=== PATIENT | male | born 1955 | race Caucasian/White ===

== ENCOUNTER → 2018-02-23 11:29 | Outpatient (CLI) | payer OTHER, SELFPAY ==
[2018-02-23 11:55] LABS: Basophils # 0.1 K/mm3 (0-0.2); Basophils % 2.1 % (0.1-2.0); Eosinophils # 0.1 K/mm3 (0.0-0.4); Eosinophils % 3.5 % (0.1-12.0); Hematocrit 44.9 % (42.0-52.0); Hemoglobin 14.7 g/dL (14.1-18.0); Lymphocytes # 1.2 K/mm3 (0.7-4.5); Lymphocytes % 33.1 K/mm3 (10-50); Mean Corpuscular HGB Conc 32.7 g/dL (31.8-35.4); Mean Corpuscular Hemoglobin 32.1 pg (27.0-31.2); Mean Corpuscular Volume 98.2 fl (80-94); Mean Platelet Volume 6.7 fl (7.4-10.4); Monocytes # 0.4 K/mm3 (0.1-1.0); Monocytes % 9.9 % (1.7-9.3); Neutrophils # 1.9 K/mm3 (1.8-7.8); Neutrophils % 51.4 % (37.0-80.0); Platelet Count 163 K/mm3 (142-424); Red Blood Count 4.57 M/mm3 (4.60-6.20); White Blood Count 3.7 K/mm3 (4.8-10.8)
[2018-02-23 14:03] LABS: Alanine Aminotransferase 16 U/L (12-78); Albumin Level 3.8 gm/dL (3.4-5.0); Albumin/Globulin Ratio 1.2 (1.1-1.8); Alkaline Phosphatase 109 U/L (46-116); Anion Gap 11.1 mEq/L (5-15); Aspartate Amino Transferase 12 U/L (15-37); Bilirubin,Total 0.3 mg/dL (0.2-1.0); Blood Urea Nitrogen 9 mg/dL (7-18); Calcium 8.6 mg/dL (8.5-10.1); Carbon Dioxide 30 mmol/L (21.0-32.0); Chloride 105 mmol/L (98-107); Creatinine,Serum 0.87 mg/dL (0.70-1.30); Estimated Glomerular Filt Rate 89 ml/min (>60); GFR (African American) 108 ML/MIN (>60); Globulin 3.1 gm/dl (1.3-3.2); Glucose 72 mg/dL (74-106); Phenytoin (Dilantin) 16.7 ug/mL (10-20); Potassium 4.1 mmoL/L (3.5-5.1); Prostate Specific Ag, Diagnost 0.54 ng/mL (0.0-4.0); Sodium 142 mmol/L (136-145); Thyroid Stimulating Hormone 18.06 uIU/ml (0.358-3.740); Total Protein,Serum 6.9 gm/dL (6.4-8.2)
== END ==
PROVIDERS: PCP Internal Medicine; Visit Provider Internal Medicine
DX: E03.9 Hypothyroidism, unspecified (principal); G40.802 Other epilepsy, not intractable, without status epilepticus; R16.0 Hepatomegaly, not elsewhere classified; R39.12 Poor urinary stream; Z85.72 Personal history of non-Hodgkin lymphomas
CPT/HCPCS: 36415; 80053; 80185; 84153; 84443; 85025

== ENCOUNTER → 2019-07-07 11:36 | Outpatient (CLI) | payer OTHER, SELFPAY ==
--- NOTE | 2019-07-07 12:26 | ECG_ITS ---
APPROVED REPORT Exam: Resting ECG HR:89 bpm ECG Measurements Heart Rate 89 AXES NM 160 P 85 QRSd 88 QRS 84 QT 348 T 54 QTc 423 <Conclusion> Sinus rhythm with fusion complexes Nonspecific T wave abnormality Abnormal ECG Electronically signed by : Stevo Beard, 07/07/2019 14:50:56
[2019-07-07 12:39] LABS: Basophils # 0.1 K/mm3 (0-0.2); Eosinophils # 0.1 K/mm3 (0.0-0.4); Hematocrit 36.2 % (42.0-52.0); Hemoglobin 12.5 g/dL (14.1-18.0); Lymphocytes # 0.6 K/mm3 (0.7-4.5); Lymphocytes % 9.1 % (10-50); Mean Corpuscular HGB Conc 34.5 g/dL (31.8-35.4); Mean Corpuscular Hemoglobin 33.7 pg (27.0-31.2); Mean Corpuscular Volume 97.8 fl (80-94); Mean Platelet Volume 7.1 fl (7.4-10.4); Monocytes # 0.9 K/mm3 (0.1-1.0); Monocytes % 12.3 % (1.7-9.3); Neutrophils # 5.4 K/mm3 (1.8-7.8); Neutrophils % 76.7 % (37.0-80.0); Platelet Count 166 K/mm3 (142-424); Red Cell Distribution Width 14.3 % (11.5-17.5)
[2019-07-07 14:16] LABS: Alanine Aminotransferase 18 U/L (12-78); Albumin/Globulin Ratio 1.3 (1.1-1.8); Alkaline Phosphatase 129 U/L (46-116); Anion Gap 14.6 mEq/L (5-15); Aspartate Amino Transferase 32 U/L (15-37); Bilirubin,Total 0.4 mg/dL (0.2-1.0); Blood Urea Nitrogen 8 mg/dL (7-18); Calcium 8.2 mg/dL (8.5-10.1); Carbon Dioxide 27 mmol/L (21.0-32.0); Chloride 102 mmol/L (98-107); Estimated Glomerular Filt Rate 68 ml/min (>60); GFR (African American) 82 ML/MIN (>60); Glucose 98 mg/dL (74-106); Phenytoin (Dilantin) 7.3 ug/mL (10-20); Potassium 4.6 mmoL/L (3.5-5.1); Sodium 139 mmol/L (136-145)
[2019-07-07 19:06] LABS: Thyroid Stimulating Hormone 70.76 uIU/ml (0.358-3.740)
[2019-07-08 12:34] LABS: Vitamin D 25 Hydroxy 6.1 ng/mL (30.0-100.0)
== END ==
PROVIDERS: PCP Internal Medicine; Visit Provider Podiatrist
DX: Z01.818 Encounter for other preprocedural examination (principal); S82.841A Displaced bimalleolar fracture of right lower leg, initial encounter for closed fracture; E55.9 Vitamin D deficiency, unspecified; W19.XXXA Unspecified fall, initial encounter
CPT/HCPCS: 36415; 80053; 80185; 82652; 84443; 85025; 93005

== ENCOUNTER → 2019-07-09 10:24 | Outpatient (CLI) | payer OTHER, SELFPAY ==
--- NOTE | 2019-07-09 | CA_ITS ---
APPROVED REPORT EXAM: Comprehensive 2D, Doppler, and color-flow Echocardiogram Furnace Fitter: Yasmeen Gongora RT(R) Ht: 5 ft 10 in Wt: 140lbs BSA: 1.79 BP: 120/78 mmHg Indications: Preop ankle fx, smoker, hx thyroid cancer, seizures 2D Dimensions LVOT 1.77 cm (M/F) 1.5-2.5 M-Mode Dimensions RVDd 2.85 cm (0.9-2.6) LVDd 4.42 cm (3.5-5.7) LVDs 3.49 cm (3.5-5.7) IVSd 0.73 cm (0.6-1.1) PWd 0.73 cm (0.6-1.1) EF (Teich) 43.00% FS 21.00% EDV (Teich) 88.60 mL ESV (Teich) 50.50 mL LV Diastology E/A Ratio 1.18 Mitral Valve MV A Velocity 47.00 (40-130 cm/s) Left Ventricle Left atrium is mildly enlarged, left ventricle is normal size, there is no concentric left ventricular hypertrophy, visually estimated ejection fraction 55% with no regional wall motion abnormality. Diastolic parameters are inconclusive. Right Ventricle Right atrium and right ventricular normal size and contractility. Aortic Valve Aortic valve is minimally thickened and fibrosed. There is no aortic stenosis or aortic insufficiency. Mitral Valve Mitral valve is grossly normal, there is no mitral stenosis, there is mild mitral regurgitation. Tricuspid Valve Tricuspid valve grossly normal, there is mild tricuspid regurgitation. Tricuspid regurgitation jet velocity is inadequate for calculation of the right ventricular systolic pressure. Pulmonic Valve Pulmonic valve is poorly visualized. Great Vessels Aortic root is normal size. Pericardium No significant pericardial effusion noted. Conclusion 1. Normal left ventricular size, preserved left ventricular systolic function, visually estimated ejection fraction 55% with no regional wall motion abnormality, diastolic parameters are inconclusive. 2. Mild mitral and tricuspid regurgitation. 3. No significant pericardial effusion noted. Electronically signed by : Elieser Waggoner, 07/09/2019 13:50:04
== END ==
PROVIDERS: PCP Internal Medicine; Visit Provider Internal Medicine
DX: Z01.818 Encounter for other preprocedural examination (principal); E03.9 Hypothyroidism, unspecified; R01.1 Cardiac murmur, unspecified
CPT/HCPCS: 93306

== ENCOUNTER 2019-08-13 05:41 | Inpatient (IN) ==
--- NOTE | 2019-08-13 06:12 | Emergency Department Note ---
ED Disposition Clinical Impression: SBO (small bowel obstruction) Disposition: Admitted As Inpatient Condition on Discharge: Fair Instructions: DI for Acute Abdomen Referrals: Stevo Beard [Primary Care Provider] - - Critical Care Critical Care Time: No Attestation: On 08/13/19, the high probability of a clinically significant, sudden or life threatening deterioration of the following system(s) required my full and direct attention, intervention and personal management. The time I documented below is in addition to time spent performing reported procedures but includes the following listed in this critical care notation. Medical Decision Making - Medical Records Medical records reviewed: Yes: I reviewed the patient's medical records. - Hira Inquiry Pt receiving controlled substance: No Vital Signs: 08/13/19 05:43 08/13/19 08:09 Temperature 97.9 F Temperature Source Oral Pulse Rate [Left Radial] 89 73 Respiratory Rate 16 Blood Pressure [Right Arm] 130/88 140/85 Blood Pressure Mean [Right Arm] 102 103 Blood Pressure Source [Right Arm] Automatic Cuff Blood Pressure Position [Right Arm] Sitting Sitting 02 Sat by Pulse Oximetry 96 Oxygen Delivery Method Room Air - Lab Data Lab results reviewed: Yes: I reviewed the patient's lab results. Lab Results 08/13/19 06:20: Urine Color Yellow, Urine Appearance Clear, Urine pH 7.0, Ur Specific [place] 1.020, Urine Protein Negative, Urine Glucose (UA) Negative, Urine Ketones Negative, Urine Blood Negative, Urine Nitrate Negative, Urine Bilirubin Negative, Urine Urobilinogen 0.2, Ur Leukocyte Esterase Negative, Urine RBC None, Urine WBC None, Ur Squamous Epith Cells Occasional, Urine Bacteria Trace 08/13/19 06:25: WBC 9.2, RBC 4.45 L, Hgb 14.8, Hct 44.6, MCV 100.2 H, MCH 33.3 H , MCHC 33.3, RDW 13.4, Plt Count 247, MPV 6.9 L, Neut % (Auto) 82.7 H, Lymph % (Auto) 8.2 L, [place] % (Auto) 7.1, Eos % (Auto) 1.3, Baso % (Auto) 0.7, Neut # (Auto) 7.6, Lymph # (Auto) 0.8, [place] # (Auto) 0.7, Eos # (Auto) 0.1, Baso # (Auto) 0.1 08/13/19 06:25: Amylase 79 08/13/19 06:25: Lipase 90 08/13/19 06:25: Sodium 137, Potassium 4.0, Chloride 98, Carbon Dioxide 31 H, Anion Gap 12.0, BUN 13, Creatinine 1.10, Estimated Creat Clear 62, Estimated GFR 68, Est GFR ( Amer) 82, Glucose 120 H, Calcium 9.7, Total Bilirubin 0.4, Direct Bilirubin 0.0, Conjugated Bilirubin 0.0, Indirect Bilirubin 0.4, Unconjugated Bilirubin 0.5, AST 26, ALT 17, Alkaline Phosphatase 154 H, Total Protein 7.7, Albumin 4.3 Result diagrams: 08/13/19 06:25 08/13/19 06:25 Orders (Tests/Meds): ED MEDICATIONS Discontinued Medications Generic Name Dose Route Start Last Admin Trade Name Freq PRN Reason Stop Dose Admin Sodium Chloride 1,000 mls @ 999 mls/hr 08/13/19 06:30 08/13/19 06:31 Sod Chlor 0.9% 1000ml Bag IV 08/13/19 07:30 999 mls/hr .Q1H1M BARBY Administration Ioversol 75 ml 08/13/19 07:43 08/13/19 07:44 Rad-Optiray 350 100ml Vial IV 08/13/19 07:44 75 ml ONCE ONE Administration Protocol Sodium Chloride 10 ml 08/13/19 07:43 08/13/19 07:44 Rad-Saline Flush 10ml Syringe IV 08/13/19 07:44 10 ml ONCE ONE Administration ORDERS Category Date Time Status CT abdomen pelvis w con Stat Cat Scan 08/13/19 06:02 Taken BMP [Basic Metabolic Panel] Stat Lab 08/13/19 06:25 Results Liver Panel Stat Lab 08/13/19 06:25 Results Phenytoin (Dilantin) Stat Lab 08/13/19 06:25 Results - CT Data CT Scan: Abdomen, Pelvis Time Received: 07:[address] Reviewed: Yes: I have viewed the radiologist's interpretation Preliminary Findings: Abnormal (sbo) - Physician Consults Physician Consulted: magali Reason -: Pt condition Additional Consult: [email or web address] Reason -: Admission Nausea/Vomiting/Diarrhea HPI - General Chief complaint: Abdominal Pain Stated complaint: Stomach pain Time Seen by Provider: 08/13/19 06:00 Mode of Arrival: Ambulatory Source of Information: Patient, Relative, Medical Record Limitations: No Limitations Description of Symptoms (Recalled from ER Triage Doc. by RN): pt stated he has had abdominal pain since yesterday that progressively got worse this morning. pt decribes the pain as a sharp pain rating an 8 right at his umbillicus. pt denies any nausea, vomiting or diarrhea. - History of Present Illness HPI Narrative: progressive midabd pain since 1700 yesterday with no vomiting and diarrhea - recent ankle surg - MD complaint: nausea, abdominal pain Onset (ago): hour(s) Associated Abdominal Pain: Yes Location of pain: periumbilical Severity: moderate Associated symptoms: denies other symptoms - Related Data Home Medications Medication Instructions Recorded Confirmed Levothyroxine Sodium 125 mcg PO DAILY 03/10/19 08/13/19 [Levothyroxine 125mcg (0.125mg) Tab] Phenytoin Sodium Extended 100 mg PO TID 03/10/19 08/13/19 [Dilantin 100mg Capsule] Ergocalciferol (Vitamin D2) 50,000 unit PO QWEEK 07/13/19 08/13/19 [Drisdol] Previous Rx's Medication Instructions Recorded enoxaparin 40 mg/0.4 mL 40 mg SQ QDAY 20 Days #8 ml 07/07/19 subcutaneous syringe hydrocodone 7.5 mg-acetaminophen 1 tab PO Q4-6H PRN #30 tab 07/07/19 325 mg tablet ibuprofen 800 mg tablet 800 mg PO BID #60 tab 07/07/19 ondansetron 4 mg disintegrating 4 mg PO Q6H #30 tab 07/07/19 tablet Allergies Allergy/AdvReac Type Severity Reaction Status Date / Time No Known Allergies Allergy Verified 08/13/19 06:04 [facility] History - Hepatitis A Screen Drug use history?: No High risk sexual behaviors?: No History of sexually transmitted infection?: No Currently employed?: No Childcare worker?: No Do you have indoor plumbing?: Yes Do you have electricity?: Yes Attestation statement:: This patient has been screened for Hepatitis A risk factors. I have reviewed the patient's past medical history: Yes Medical History: Reports:: Cancer, Seizures Denies:: Diabetes Mellitus Type 1, Diabetes Mellitus Type 2, Internal Pacemaker, MRSA Other Medical History: Reports: Other. Denies: Blood Transfusion Reaction Other Surgeries: Yes: Colonoscopy. No: Pacemaker Amputation: No Fractures: Yes (Fractured collar bone, and fractured ribs 7 years ago ) Comment: Subdural hematoma. Right Hand Surgery - Social History Smoking Status: Light tobacco smoker Tobacco Type: smokeless tobacco # Packs/Day (cigarettes): 0 Alcohol Intake: never Substance Use Type: denies use Occupational Status: disabled Housing: house Household Members: none Family Hx:: Cancer, Heart Attack, Thyroid Disorder ROS Obtained: Yes All systems reviewed & no additional complaints - Constitutional Constitutional: Denies fever(s) - Eyes Eyes: Denies change in vision - ENT Ears, Nose, Mouth, and Throat: Denies sore throat - Cardiovascular Cardiovascular: Denies chest pain - Respiratory Respiratory: No cough - Gastrointestinal Gastrointestingal: Reports: as per HPI, abdominal pain, nausea. Denies: diarrhea, vomiting - Genitourinary Male Genitourinary: Denies hematuria - Musculoskeletal Musculoskeletal: Denies joint pain, Denies joint swelling - Integumentary/Breasts Skin/Breast: Denies rash - Neurologic Neurologic: Denies focal weakness, Denies seizure-like activity Physical Exam - General General appearance: alert - Head Head exam: normocephalic - Eye Eye exam: Present: PERRL, EOMI - ENT ENT exam: Present: mucous membranes dry - Neck Neck exam: Present: trachea midline - Respiratory Respiratory exam: Absent: respiratory distress - Cardiovascular Cardiovascular exam: Present: regular rate - Abdominal Exam Abdominal exam: Present: soft, tenderness, guarding, hyperactive bowel sounds. Absent: rebound, rigidity Abdominal tenderness: Present: epigastrium, moderate - Extremities Exam Extremities exam: Present: other (boot rt lower ext ) - Neurological Exam Neurological exam: Present: alert, CN II-XII intact - Psychiatric Psychiatric exam: Present: normal affect - Skin Skin exam: Absent: rash Procedures - Catheter Insertion (Urinary) Prophylactic Antibiotics Given: No Bladder Scan/US before Catheterization: No Preparation: Povidone-Iodine Type of Catheter Inserted: Michael Catheter [place] Size: 18 Catheter balloon size (mL): 10 Topical Anesthesia Used: Yes Results: successfully catheterized-immediate flow Patient Tolerated Procedure: well Complications: none
[2019-08-13 06:40] LABS: Basophils # 0.1 K/mm3 (0-0.2); Basophils % 0.7 % (0.1-2.0); Eosinophils # 0.1 K/mm3 (0.0-0.4); Eosinophils % 1.3 % (0.1-12.0); Hematocrit 44.6 % (42.0-52.0); Hemoglobin 14.8 g/dL (14.1-18.0); Lymphocytes # 0.8 K/mm3 (0.7-4.5); Lymphocytes % 8.2 % (10-50); Mean Corpuscular HGB Conc 33.3 g/dL (31.8-35.4); Mean Corpuscular Volume 100.2 fl (80-94); Mean Platelet Volume 6.9 fl (7.4-10.4); Monocytes # 0.7 K/mm3 (0.1-1.0); Monocytes % 7.1 % (1.7-9.3); Neutrophils # 7.6 K/mm3 (1.8-7.8); Neutrophils % 82.7 % (37.0-80.0); Platelet Count 247 K/mm3 (142-424); Red Blood Count 4.45 M/mm3 (4.60-6.20); Red Cell Distribution Width 13.4 % (11.5-17.5); White Blood Count 9.2 K/mm3 (4.8-10.8)
[2019-08-13 06:43] LABS: Microscopic, Urine URINE MICROSCOPIC (MICROSCOPIC)
[2019-08-13 06:47] LABS: Bilirubin,Unconjugated 0.5 mg/dL (0.0-1.1)
[2019-08-13 06:48] LABS: Albumin Level 4.3 g/dl (3.5-5.0); Bilirubin,Indirect 0.4 mg/dL (0.0-0.9); Bilirubin,Total 0.4 mg/dl (0.2-1.3); Calcium 9.7 mg/dl (8.4-10.2); Total Protein,Serum 7.7 g/dl (6.3-8.2)
[2019-08-13 06:50] LABS: Appearance,Urine CLEAR (Clear); Bilirubin,Urine Negative (Negative); Blood, Urine Negative (Negative); Color,Urine YELLOW (Yellow); Glucose,Urine (UA) Negative (Negative); Ketones,Urine Negative (Negative); Leukocyte Esterase,Urine Negative (Negative); Protein,Urine Negative (Negative); Urobilinogen,Urine 0.2 EU/dl (0.2)
[2019-08-13 07:06] LABS: Bacteria,Urine Trace /lpf; Squamous Epithelial Cell,Urine Occasional #/hpf (0-5)
[2019-08-13 08:44] LABS: Phenytoin (Dilantin) 5.4 ug/ml (10-20)
--- NOTE | 2019-08-13 08:49 | Consult Report ---
*Admission Date: 08/13/19 *Reason for consult:: Bowel obstruction *History of present illness: Patient is a 64-year-old pleasant thin white male. He was in his usual state of health reportedly until yesterday afternoon at approximately 5 PM which time he developed some mid abdominal pain. This became much more severe this morning at approximately 5:30 AM and he presented to the emergency department. He was seen and evaluated underwent thorough work-up which included CT scan with IV contrast. This revealed findings consistent with bowel obstruction. Surgical consultation was obtained. Patient denies any nausea. He states he actually feels somewhat better. He has had no change in his bowel habits. He is never had any previous abdominal surgery. Of note, the patient did sustain minor trauma approximately 5 weeks ago at which time he had fallen approximately 4 feet sustaining a right ankle injury. He has not had any abdominal pain since that until yesterday when he developed these current symptoms. Patient has previously undergone colonoscopy. Review of Systems - Review of Systems Review of systems:: pertinent systems reviewed and negative unless documented below - *Neurologic Denies localized weakness, Denies seizure-like activity [facility] History Medical History: Reports:: Cancer, Seizures Denies:: Diabetes Mellitus Type 1, Diabetes Mellitus Type 2, Internal Pacemaker, MRSA *Have you ever received a pneumonia vaccine?: No *Have you received a flu vaccine this season?: No Other Medical History: Reports: Other. Denies: Blood Transfusion Reaction Other Surgeries: Yes: Colonoscopy. No: Pacemaker Amputation: No Fractures: Yes (Fractured collar bone, and fractured ribs 7 years ago ) - *Social History Smoking Status: Light tobacco smoker Tobacco Type: smokeless tobacco # Packs/Day (cigarettes): 0 Alcohol Intake: never Substance Use Type: denies use *Occupational Status:: disabled Housing: house Household Members: none *Travel in the last 8 weeks: None Family Hx:: Cancer, Heart Attack, Thyroid Disorder Meds Home Medications Medication Instructions Recorded Confirmed Type Levothyroxine Sodium 125 mcg PO DAILY 03/10/19 08/13/19 History [Levothyroxine 125mcg (0.125mg) Tab] Phenytoin Sodium Extended 100 mg PO TID 03/10/19 08/13/19 History [Dilantin 100mg Capsule] enoxaparin 40 mg/0.4 mL 40 mg SQ QDAY 20 Days #8 ml 07/07/19 08/13/19 Rx subcutaneous syringe hydrocodone 7.5 mg-acetaminophen 1 tab PO Q4-6H PRN #30 tab 07/07/19 08/13/19 Rx 325 mg tablet ibuprofen 800 mg tablet 800 mg PO BID #60 tab 07/07/19 08/13/19 Rx ondansetron 4 mg disintegrating 4 mg PO Q6H #30 tab 07/07/19 08/13/19 Rx tablet Ergocalciferol (Vitamin D2) 50,000 unit PO QWEEK 07/13/19 08/13/19 History [Drisdol] Allergies Allergy/AdvReac Type Severity Reaction Status Date / Time No Known Allergies Allergy Verified 08/13/19 06:04 Exam Vital signs and Labs for Last 24 Hours: Temp Pulse Resp BP Pulse Ox 97.9 F 73 16 140/85 96 08/13/19 05:43 08/13/19 08:09 08/13/19 05:43 08/13/19 08:09 08/13/19 05:43 Laboratory Results - last 24 hr 08/13/19 06:20: Urine Color Yellow, Urine Appearance Clear, Urine pH 7.0, Ur Specific [place] 1.020, Urine Protein Negative, Urine Glucose (UA) Negative, Urine Ketones Negative, Urine Blood Negative, Urine Nitrate Negative, Urine Bilirubin Negative, Urine Urobilinogen 0.2, Ur Leukocyte Esterase Negative, Urine RBC None, Urine WBC None, Ur Squamous Epith Cells Occasional, Urine Bacteria Trace 08/13/19 06:25: WBC 9.2, RBC 4.45 L, Hgb 14.8, Hct 44.6, MCV 100.2 H, MCH 33.3 H , MCHC 33.3, RDW 13.4, Plt Count 247, MPV 6.9 L, Neut % (Auto) 82.7 H, Lymph % (Auto) 8.2 L, [place] % (Auto) 7.1, Eos % (Auto) 1.3, Baso % (Auto) 0.7, Neut # (Auto) 7.6, Lymph # (Auto) 0.8, [place] # (Auto) 0.7, Eos # (Auto) 0.1, Baso # (Auto) 0.1 08/13/19 06:25: Amylase 79 08/13/19 06:25: Lipase 90 08/13/19 06:25: Sodium 137, Potassium 4.0, Chloride 98, Carbon Dioxide 31 H, Anion Gap 12.0, BUN 13, Creatinine 1.10, Estimated Creat Clear 62, Estimated GFR 68, Est GFR ( Amer) 82, Glucose 120 H, Calcium 9.7, Total Bilirubin 0.4, Direct Bilirubin 0.0, Conjugated Bilirubin 0.0, Indirect Bilirubin 0.4, Unconjugated Bilirubin 0.5, AST 26, ALT 17, Alkaline Phosphatase 154 H, Total Protein 7.7, Albumin 4.3 I & O for Last 24 hours: Intake & Output 08/10/19 08/11/19 08/12/19 08/13/19 11:59 11:59 11:59 11:59 Weight 140 lb - *Routine HEENT Exam Head: Present: normocephalic Eye: Present: EOMI, PERRL ENT: Present: mucous membranes moist - *Routine Neck Exam Present: supple. Absent: lymphadenopathy - *Routine Respiratory Exam Present: CTA bilaterally - *Routine Cardiovascular Exam Present: RRR - *Routine Abdominal Exam Absent: tenderness Comments: His abdomen is flat. No appreciable distention. Hypoactive bowel sounds. He does have some diffuse tenderness without guarding or rebound. - *Routine Extremities Exam Absent: cyanosis, clubbing, edema - *Routine Skin Exam Present: warm. Absent: rash - *Routine Neurological Exam Present: alert, oriented X3 Results - Labs 08/13/19 06:25 08/13/19 06:25 Laboratory Results - last 24 hr 08/13/19 06:20: Urine Color Yellow, Urine Appearance Clear, Urine pH 7.0, Ur Specific [place] 1.020, Urine Protein Negative, Urine Glucose (UA) Negative, Urine Ketones Negative, Urine Blood Negative, Urine Nitrate Negative, Urine Bilirubin Negative, Urine Urobilinogen 0.2, Ur Leukocyte Esterase Negative, Urine RBC None, Urine WBC None, Ur Squamous Epith Cells Occasional, Urine Bacteria Trace 08/13/19 06:25: WBC 9.2, RBC 4.45 L, Hgb 14.8, Hct 44.6, MCV 100.2 H, MCH 33.3 H , MCHC 33.3, RDW 13.4, Plt Count 247, MPV 6.9 L, Neut % (Auto) 82.7 H, Lymph % (Auto) 8.2 L, [place] % (Auto) 7.1, Eos % (Auto) 1.3, Baso % (Auto) 0.7, Neut # (Auto) 7.6, Lymph # (Auto) 0.8, [place] # (Auto) 0.7, Eos # (Auto) 0.1, Baso # (Auto) 0.1 08/13/19 06:25: Amylase 79 08/13/19 06:25: Lipase 90 08/13/19 06:25: Sodium 137, Potassium 4.0, Chloride 98, Carbon Dioxide 31 H, A nion Gap 12.0, BUN 13, Creatinine 1.10, Estimated Creat Clear 62, Estimated GFR 68, Est GFR ( Amer) 82, Glucose 120 H, Calcium 9.7, Total Bilirubin 0.4, Direct Bilirubin 0.0, Conjugated Bilirubin 0.0, Indirect Bilirubin 0.4, Unconjugated Bilirubin 0.5, AST 26, ALT 17, Alkaline Phosphatase 154 H, Total Protein 7.7, Albumin 4.3 Assessment and Plan - Assessment and plan all Dx Assessment and Plan for all problems:: I reviewed his CT scan. This appears to be most consistent with a mechanical bowel obstruction. Distal small bowel is decompressed. There is no evidence of any definite free fluid, there is no free air, and there is no bowel wall thickening. Therefore this most likely is consistent with mechanical obstruction of uncertain etiology. He does have significant gastric distention on the CT scan. I do feel that he would benefit from nasogastric decompression and bowel rest. Continue to follow closely. Hopefully this is able resolve without operative intervention.
--- NOTE | 2019-08-13 09:49 | Pharmacy Consult Notes ---
[facility] Pharmacy VTE Monitoring - Patient Demographics Admission date: 08/13/19 Report Date: 08/13/19 Time: 09:49 Allergies/Adverse Reactions: Patient Allergies No Known Allergies Allergy (Verified 08/13/19 06:04) Height: 1.8 m Weight: 63.503 kg Patient Problems: Current Active Problems SBO (small bowel obstruction) (Acute) - VTE Risk Labs: VTE Related Lab Results Hgb 14.8 g/dL (14.1-18.0) 08/13/19 06:25 Hct 44.6 % (42.0-52.0) 08/13/19 06:25 Plt Count 247 K/mm3 (142-424) 08/13/19 06:25 BUN 13 mg/dl (9-20) 08/13/19 06:25 Creatinine 1.10 mg/dl (0.66-1.25) 08/13/19 06:25 Estimated Creat Clear 62 mL/min (50-200) 08/13/19 06:25 Clinical Trial Participant: No - Prophylaxis VTE Prophylaxis Ordered?: Yes Types of VTE Prophylaxis: TEDS Knee High
--- NOTE | 2019-08-13 15:45 | Progress Note ---
Subjective Narrative: Patient had nasogastric tube placed. He actually states that he does feel better. NG output has only been approximately 200 cc. Exam Vital signs and Labs for Last 24 Hours: Temp Pulse Resp BP Pulse Ox 97.9 F 79 17 148/79 H 98 08/13/19 09:18 08/13/19 09:18 08/13/19 09:18 08/13/19 09:18 08/13/19 08:50 Laboratory Results - last 24 hr 08/13/19 06:20: Urine Color Yellow, Urine Appearance Clear, Urine pH 7.0, Ur Specific [place] 1.020, Urine Protein Negative, Urine Glucose (UA) Negative, Urine Ketones Negative, Urine Blood Negative, Urine Nitrate Negative, Urine Bilirubin Negative, Urine Urobilinogen 0.2, Ur Leukocyte Esterase Negative, Urine RBC None, Urine WBC None, Ur Squamous Epith Cells Occasional, Urine Bacteria Trace 08/13/19 06:25: WBC 9.2, RBC 4.45 L, Hgb 14.8, Hct 44.6, MCV 100.2 H, MCH 33.3 H , MCHC 33.3, RDW 13.4, Plt Count 247, MPV 6.9 L, Neut % (Auto) 82.7 H, Lymph % (Auto) 8.2 L, [place] % (Auto) 7.1, Eos % (Auto) 1.3, Baso % (Auto) 0.7, Neut # (Auto) 7.6, Lymph # (Auto) 0.8, [place] # (Auto) 0.7, Eos # (Auto) 0.1, Baso # (Auto) 0.1 08/13/19 06:25: Amylase 79 08/13/19 06:25: Lipase 90 08/13/19 06:25: Sodium 137, Potassium 4.0, Chloride 98, Carbon Dioxide 31 H, Anion Gap 12.0, BUN 13, Creatinine 1.10, Estimated Creat Clear 62, Estimated GFR 68, Est GFR ( Amer) 82, Glucose 120 H, Calcium 9.7, Total Bilirubin 0.4, Direct Bilirubin 0.0, Conjugated Bilirubin 0.0, Indirect Bilirubin 0.4, Unconjugated Bilirubin 0.5, AST 26, ALT 17, Alkaline Phosphatase 154 H, Total Protein 7.7, Albumin 4.3, Phenytoin 5.4 L I & O for Last 24 hours: Intake & Output 08/11/19 08/12/19 08/13/19 08/14/19 11:59 11:59 11:59 11:59 Weight 135 lb 134 lb 7.712 oz - *Routine Abdominal Exam Comments: His abdomen is flat. Somewhat tender. Progress Note: A&P Assessment and Plan for All Diagnoses:: Patient has findings at this time consistent with mechanical bowel obstruction of uncertain etiology. Continue nasogastric decompression. I will check f ollow-up x-rays tomorrow. Hopefully he improves without operative intervention. However, this may be necessary.
--- NOTE | 2019-08-13 22:22 | History & Physical Report ---
*Admission Date: 08/13/19 *Chief complaint: Abd pain/nausea *History of present illness: Patient is a 64-year-old pleasant thin white male. He was in his usual state of health reportedly until yesterday afternoon at approximately 5 PM which time he developed some mid abdominal pain. This became much more severe this morning at approximately 5:30 AM and he presented to the emergency department. He was seen and evaluated underwent thorough work-up which included CT scan with IV contrast. This revealed findings consistent with bowel obstruction. Surgical consultation was obtained. Patient denies any nausea. He states he actually feels somewhat better. He has had no change in his bowel habits. He is never had any previous abdominal surgery. Of note, the patient did sustain minor trauma approximately 5 weeks ago at which time he had fallen approximately 4 feet sustaining a right ankle injury. He has taken two doses of opiates for pain relief. He has not had any abdominal pain since that until yesterday when he developed these current symptoms. Patient has previously undergone colonoscopy. Reports good improvement but no flatus post NG tube placement. [facility] History I have reviewed the patient's past medical history: Yes Medical History: Reports:: Cancer (Thyroid), Seizures Denies:: Diabetes Mellitus Type 1, Diabetes Mellitus Type 2, Internal Pacemaker, MRSA *Have you ever received a pneumonia vaccine?: No *Have you received a flu vaccine this season?: No Other Medical History: Reports: Chemotherapy, Hypothyroidism, Thyroid Disease (Thyroid cancer), Other. Denies: Blood Transfusion Reaction Other Surgeries: Yes: Colonoscopy. No: Pacemaker Amputation: No Fractures: Yes (Fractured collar bone, and fractured ribs 7 years ago ) - *Social History Educational Level: Completed High School Smoking Status: Current every day smoker Tobacco Type: smokeless tobacco # Packs/Day (cigarettes): 0 Alcohol Intake: former Alcohol Intake Frequency:: holidays/special occasions only Substance Use Type: denies use *Occupational Status:: employed Housing: house Household Members: none *Travel in the last 8 weeks: None Family Hx:: Cancer, Coronary Artery Disease, Heart Attack Review of Systems - Review of Systems Review of systems:: pertinent systems reviewed and negative unless documented below - *Neurologic Denies localized weakness, Denies seizure-like activity Meds Home Medications Medication Instructions Recorded Confirmed Type Phenytoin Sodium Extended 100 mg PO DAILY 03/10/19 08/13/19 History [Dilantin 100mg Capsule] Ergocalciferol (Vitamin D2) 50,000 unit PO WEEKLY 07/13/19 08/13/19 History [Drisdol] Levothyroxine Sodium 150 mcg PO DAILY 08/13/19 08/13/19 History [Levothyroxine 150mcg (0.15mg) Tab] Phenytoin Sodium Extended 200 mg PO 1600 08/13/19 08/13/19 History [Dilantin 100mg Capsule] Allergies Allergy/AdvReac Type Severity Reaction Status Date / Time No Known Allergies Allergy Verified 08/13/19 06:04 Exam Vital signs and Labs for Last 24 Hours: Temp Pulse Resp BP Pulse Ox 98.5 F 90 18 161/89 H 97 08/13/19 20:00 08/13/19 20:00 08/13/19 20:00 08/13/19 20:00 08/13/19 20:00 Laboratory Results - last 24 hr 08/13/19 06:20: Urine Color Yellow, Urine Appearance Clear, Urine pH 7.0, Ur Specific [place] 1.020, Urine Protein Negative, Urine Glucose (UA) Negative, Urine Ketones Negative, Urine Blood Negative, Urine Nitrate Negative, Urine Bilirubin Negative, Urine Urobilinogen 0.2, Ur Leukocyte Esterase Negative, Urine RBC None, Urine WBC None, Ur Squamous Epith Cells Occasional, Urine Bacteria Trace 08/13/19 06:25: WBC 9.2, RBC 4.45 L, Hgb 14.8, Hct 44.6, MCV 100.2 H, MCH 33.3 H , MCHC 33.3, RDW 13.4, Plt Count 247, MPV 6.9 L, Neut % (Auto) 82.7 H, Lymph % (Auto) 8.2 L, [place] % (Auto) 7.1, Eos % (Auto) 1.3, Baso % (Auto) 0.7, Neut # (Auto) 7.6, Lymph # (Auto) 0.8, [place] # (Auto) 0.7, Eos # (Auto) 0.1, Baso # (Auto) 0.1 08/13/19 06:25: Amylase 79 08/13/19 06:25: Lipase 90 08/13/19 06:25: Sodium 137, Potassium 4.0, Chloride 98, Carbon Dioxide 31 H, Anion Gap 12.0, BUN 13, Creatinine 1.10, Estimated Creat Clear 62, Estimated GFR 68, Est GFR ( Amer) 82, Glucose 120 H, Calcium 9.7, Total Bilirubin 0.4, Direct Bilirubin 0.0, Conjugated Bilirubin 0.0, Indirect Bilirubin 0.4, Unconjugated Bilirubin 0.5, AST 26, ALT 17, Alkaline Phosphatase 154 H, Total Protein 7.7, Albumin 4.3, Phenytoin 5.4 L I & O for Last 24 hours: Intake & Output 08/11/19 08/12/19 08/13/19 08/14/19 11:59 11:59 11:59 11:59 Intake Total 1892 / 1892 Output Total 350 / 350 Balance 1542 / 1542 Weight 135 lb 134 lb 7.712 oz - Constitutional thin - *Routine HEENT Exam Head: Present: normocephalic Eye: Present: EOMI, PERRL ENT: Present: mucous membranes moist Comments: NG tube in place - *Routine Neck Exam Present: supple. Absent: lymphadenopathy Comments: thyroidectomy scar noted - *Routine Respiratory Exam Present: CTA bilaterally - *Routine Cardiovascular Exam Present: RRR - *Routine Abdominal Exam Present: tenderness, firm - *Routine Extremities Exam Absent: cyanosis, clubbing, edema - *Routine Skin Exam Present: warm. Absent: rash - *Routine Neurological Exam Present: alert, oriented X3 Assessment and Plan (1) Seizure disorder Current visit: Yes Status: Acute Category: Medical Code(s): G40.909 - Epilepsy, unspecified, not intractable, without status epilepticus IV dilantin while NPO - no seizures in past 2 years (2) SBO (small bowel obstruction) Current visit: Yes Status: Acute Category: Medical Code(s): K56.609 - Unspecified intestinal obstruction, unspecified as to partial versus complete obstruction Appreciate surgical consults... agree with plan,
[2019-08-14 07:06] LABS: Basophils # 0.1 K/mm3 (0-0.2); Basophils % 0.6 % (0.1-2.0); Eosinophils # 0.2 K/mm3 (0.0-0.4); Hematocrit 45.1 % (42.0-52.0); Hemoglobin 14.9 g/dL (14.1-18.0); Lymphocytes # 1.4 K/mm3 (0.7-4.5); Mean Corpuscular HGB Conc 32.9 g/dL (31.8-35.4); Mean Corpuscular Volume 100.1 fl (80-94); Mean Platelet Volume 7.5 fl (7.4-10.4); Monocytes % 9.8 % (1.7-9.3); Neutrophils # 7.3 K/mm3 (1.8-7.8); Neutrophils % 73.7 % (37.0-80.0); Platelet Count 245 K/mm3 (142-424); Red Cell Distribution Width 13.4 % (11.5-17.5); White Blood Count 9.9 K/mm3 (4.8-10.8)
[2019-08-14 07:10] LABS: Anion Gap 14.3 mEq/L (5-15)
--- NOTE | 2019-08-14 07:55 | Progress Note ---
Internal Medicine - PN: Subj *Date: 08/14/19 *Time: 07:52 Interval history: Patient had some episodes of pain through the night requiring hydromorphone. This morning he feels comfortable. 500 mL's of gastric fluid from the NG tube overnight. No fevers. Exam Vital signs and Labs for Last 24 Hours: Temp Pulse Resp BP Pulse Ox 97.4 F L 83 17 101/71 L 98 08/14/19 07:44 08/14/19 07:44 08/14/19 07:44 08/14/19 07:44 08/14/19 07:44 Laboratory Results - last 24 hr 08/13/19 06:25: Phenytoin 5.4 L 08/14/19 06:00: WBC 9.9, RBC 4.50 L, Hgb 14.9, Hct 45.1, MCV 100.1 H, MCH 33.0 H , MCHC 32.9, RDW 13.4, Plt Count 245, MPV 7.5, Neut % (Auto) 73.7, Lymph % (Auto) 14.0, [place] % (Auto) 9.8 H, Eos % (Auto) 2.0, Baso % (Auto) 0.6, Neut # (Auto) 7.3, Lymph # (Auto) 1.4, [place] # (Auto) 1.0, Eos # (Auto) 0.2, Baso # (Auto) 0.1 08/14/19 06:00: Sodium 139, Potassium 4.3, Chloride 102, Carbon Dioxide 27, Anion Gap 14.3, BUN 11, Creatinine 1.00, Estimated Creat Clear 67, Estimated GFR 75, Est GFR ( Amer) 91, Glucose 115 H, Calcium 9.0 I & O for Last 24 hours: Intake & Output 08/11/19 08/12/19 08/13/19 08/14/19 11:59 11:59 11:59 11:59 Intake Total 2963 / 2963 Output Total 1050 / 1050 Balance 1912 / 1912 Weight 135 lb 138 lb 7 oz Narrative: Patient is alert. Pleasant. Talkative. Oropharynx clear. NG tube in good position. Lungs have good air movement, heart rate regular. Abdomen is tender, voluntary guarding throughout, no masses. Unchanged exam from yesterday. Right lower extremity and ankle boot. Left side and upper extremities with no pulse deficits or perfusion deficits. Neurologically intact. Assessment and Plan (1) Seizure disorder Current visit: Yes Status: Acute Category: Medical Code(s): G40.909 - Epilepsy, unspecified, not intractable, without status epilepticus Tolerating IV Dilantin well given his NG tube placement. Check Dilantin levels tomorrow. (2) SBO (small bowel obstruction) Current visit: Yes Status: Acute Category: Medical Code(s): K56.609 - Unspecified intestinal obstruction, unspecified as to partial versus complete obstruction Patient has not passed flatus or stool. X-rays reviewed. Does not seem to be much improvement. Continue NG tube. Discussed case with surgery. (3) Hypothyroidism Current visit: Yes Status: Acute Category: Medical Code(s): E03.9 - Hypothyroidism, unspecified Clinically euthyroid. Continue holding thyroid medication given his NG tube status.
--- NOTE | 2019-08-14 08:16 | Progress Note ---
Subjective Narrative: Patient has not had a bowel movement or passed any flatus. This morning he states that he feels okay. However, overnight he had some episodes of pain, mostly in the lower abdomen, requiring intravenous hydromorphone. Exam Vital signs and Labs for Last 24 Hours: Temp Pulse Resp BP Pulse Ox 97.4 F L 83 17 101/71 L 98 08/14/19 07:44 08/14/19 07:44 08/14/19 07:44 08/14/19 07:44 08/14/19 07:44 Laboratory Results - last 24 hr 08/13/19 06:25: Phenytoin 5.4 L 08/14/19 06:00: WBC 9.9, RBC 4.50 L, Hgb 14.9, Hct 45.1, MCV 100.1 H, MCH 33.0 H , MCHC 32.9, RDW 13.4, Plt Count 245, MPV 7.5, Neut % (Auto) 73.7, Lymph % (Auto) 14.0, [place] % (Auto) 9.8 H, Eos % (Auto) 2.0, Baso % (Auto) 0.6, Neut # (Auto) 7.3, Lymph # (Auto) 1.4, [place] # (Auto) 1.0, Eos # (Auto) 0.2, Baso # (Auto) 0.1 08/14/19 06:00: Sodium 139, Potassium 4.3, Chloride 102, Carbon Dioxide 27, Anion Gap 14.3, BUN 11, Creatinine 1.00, Estimated Creat Clear 67, Estimated GFR 75, Est GFR ( Amer) 91, Glucose 115 H, Calcium 9.0 I & O for Last 24 hours: Intake & Output 08/11/19 08/12/19 08/13/19 08/14/19 11:59 11:59 11:59 11:59 Intake Total 2963 / 2963 Output Total 1050 / 1050 Balance 1912 / 1912 Weight 135 lb 138 lb 7 oz - *Routine Abdominal Exam Comments: His abdomen is slightly distended. He has hypoactive bowel sounds. He has diffuse voluntary guarding. There is no rebound. Progress Note: A&P (1) Seizure disorder Status: Acute Current Visit: Yes (2) SBO (small bowel obstruction) Status: Acute Assessment and plan: Patient has shown some slight clinical deterioration with conservative management of bowel obstruction of unknown etiology. X-rays reveal more diffuse progressive distention of small bowel consistent with complete small bowel mechanical obstruction. Plan for laparotomy. Current Visit: Yes (3) Hypothyroidism Status: Acute Current Visit: Yes
--- NOTE | 2019-08-14 10:45 | Operative Note ---
Date of procedure: 08/14/19 Pre-op Diagnosis:: Small bowel obstruction Post-op Diagnosis:: Same Procedure performed:: Laparotomy with lysis of adhesions and freeing of intestinal obstruction Surgeon:: Thee Lux MD [employer]ER:: Denilson Griffith Anesthesia: TETE Estimated blood loss (mL): 25 Clinical Note:: Patient is a 64-year-old male. He states that evening on 08/12/2019 he had developed some acute onset of abdominal pain. This persisted and became more severe in the rough rounder machine of 08/13/2019. He presented to the emergency department. He underwent CT scan of the abdomen and pelvis which revealed findings consistent with mechanical distal bowel obstruction. Patient had never had prior surgeries. He was admitted for inpatient management. Initial attempt was made at nonoperative management with nasogastric tube placement. Overnight he had some increasing pain requiring hydromorphone intravenously. He underwent acute abdominal series the following morning and nasogastric tube tip was near the gastroesophageal junction. However, the stomach was decompressed. But most concerning was significant dilatation of small bowel to 4.2 cm progressive despite nasogastric decompression overnight. He was tender with some voluntary guarding diffusely. Plan was made for laparotomy for nonoperative failure of bowel obstruction. Operative findings:: He had distal bowel obstruction which was high-grade to complete. This is secondary to adhesion of uncertain etiology. Distal small bowel is decompressed. He had approximately 600 cc of reactive fluid suctioned free from the abdominal cavity and 800 cc enteric fluid suctioned via nasogastric tube. Operative note:: Patient was taken to the operating room. He was given preoperative intravenous antibiotics. He was placed in a supine position and general anesthesia was induced. Michael catheter was placed. Abdomen was prepped and draped in the standard surgical fashion. Low midline laparotomy was performed. Dissection was carried down through subcutaneous tissues. Fascia was incised. Peritoneum was carefully entered. There is reactive fluid present. This was suctioned free for a total of approximately 600 cc. Exposure was achieved. He was found to have appreciably dilated small bowel. Small bowel was delivered through the abdominal wound. There was noted to be a distal obstruction which had spontaneously freed with evidence of tight band across the distal small bowel. Small bowel distal to this was completely decompressed and proximally was dilated. It was somewhat indurated and erythematous at the site of obstruction which had spontaneously freed upon evisceration of the small bowel. Abdominal exploration was carried out. There was no other obviously noted pathology. He did have some hard stool balls in the distal colon but there was no evidence of any obstructing mass. The fluid in the small bowel was "milked" retrograde to the stomach where a nasogastric tube was replaced by anesthesia. At least 800 cc of dark enteric fluid was suctioned free from the nasogastric tube after it was confirmed in a good position. There appeared to be good hemostasis. The area of the obstruction of the small bowel was once again inspected. This appeared viable. There was no indication for resection. Enteric contents were returned to the normal anatomic position. There was good hemostasis. Fascia was closed with running #1 PDS x2. Skin was closed with carlos. Clean dry sterile dressing was applied. Condition: stable Disposition: PACU Specimens:: None Complications:: None immediately apparent
--- NOTE | 2019-08-14 10:58 | Progress Note ---
[facility] Anesthesia Checklist - Patient Identification Patient Identification: Arm Band, Verbal (Name & ) - Structural Data Admitted From: Inpatient Planned Operative Procedure/s: Exploratory laparotomy Consent for Planned Operative Procedure(s) Verified: Yes Verified Documents: Surgical Consent, History and Physical - NPO Status Verified Time NPO: 00:00 - Chart Verification Results Verified: CBC, BMP - Additional verifications Anesthesia Reactions: No Hx Blood Transfusions: No Blood Transfusion Reaction: No - Airway Assessment C-Spine Mobility Assessed: Yes TMJ Mobility Assessed: Yes Dentition: Poor Dentition (missing teeth) - Neurological Assessment Level of Consciousness: Awake, Alert, Appropriate, Follows Commands Hx Seizures: Yes (since last 20 years ago) Numbness or tingling in extremities: No - Anesthesia Plan Anesthesia Risk discussed: Yes Anesthesia Plan: Verified ASA Class: II (Emergent) Anesthesia Type: General (with Intrathecal narcotic) [facility] History I have reviewed the patient's past medical history: Yes Medical History: Reports:: Cancer (Thyroid), Seizures Denies:: Diabetes Mellitus Type 1, Diabetes Mellitus Type 2, Internal Pacemaker, MRSA *Have you ever received a pneumonia vaccine?: No *Have you received a flu vaccine this season?: No Other Medical History: Reports: Chemotherapy, Hypothyroidism, Thyroid Disease (Thyroid cancer), Other. Denies: Blood Transfusion Reaction Anesthesia experience/problems:: no prior complications Other Surgeries: Yes: Colonoscopy. No: Pacemaker Amputation: No Fractures: Yes (Fractured collar bone, and fractured ribs 7 years ago ) - *Social History Educational Level: Completed High School Tobacco Type: smokeless tobacco # Packs/Day (cigarettes): 0 Alcohol Intake: former Alcohol Intake Frequency:: holidays/special occasions only Substance Use Type: denies use *Occupational Status:: employed Housing: house Household Members: none *Travel in the last 8 weeks: None Family Hx:: Cancer, Coronary Artery Disease, Heart Attack
--- NOTE | 2019-08-14 11:30 | Progress Note ---
[facility] Anesthesia Record Part II Discharge Time: 11:20 Destination: Medical Surgical Department PACU nurse assessment reviewed?: Yes Patient Condition:: Good Anesthesia Complications:: None Swallowing reflex intact?: Yes Cyanosis?: No Blood Pressure: 124/68 Pulse Rate: 77 Temperature: 97.8 F Mental Status: Alert & Oriented (drowsy) Pain level:: 0 Nausea and/or vomitting:: None Intake, IV Amount: 0
[2019-08-15 07:34] LABS: Basophils % 0.4 % (0.1-2.0); Eosinophils # 0.2 K/mm3 (0.0-0.4); Eosinophils % 1.6 % (0.1-12.0); Hematocrit 37.2 % (42.0-52.0); Hemoglobin 12.3 g/dL (14.1-18.0); Lymphocytes # 0.8 K/mm3 (0.7-4.5); Lymphocytes % 9.1 % (10-50); Mean Corpuscular HGB Conc 33.1 g/dL (31.8-35.4); Mean Corpuscular Volume 100.2 fl (80-94); Mean Platelet Volume 7.9 fl (7.4-10.4); Monocytes # 0.9 K/mm3 (0.1-1.0); Monocytes % 10.1 % (1.7-9.3); Neutrophils # 7.2 K/mm3 (1.8-7.8); Neutrophils % 78.7 % (37.0-80.0); Platelet Count 166 K/mm3 (142-424); Red Blood Count 3.71 M/mm3 (4.60-6.20); Red Cell Distribution Width 13.3 % (11.5-17.5); White Blood Count 9.2 K/mm3 (4.8-10.8)
--- NOTE | 2019-08-15 07:45 | Progress Note ---
Subjective Narrative: Patient's main complaint is the nasogastric tube. Apparently it has become displaced. It was advanced but follow-up x-ray revealed it still to be with the tip at the gastroesophageal junction. He has not passed flatus. No bowel movements. Exam Vital signs and Labs for Last 24 Hours: Temp Pulse Resp BP Pulse Ox 97.8 F 99 H 18 133/79 94 L 08/15/19 04:00 08/15/19 04:00 08/15/19 04:00 08/15/19 04:00 08/15/19 04:00 Laboratory Results - last 24 hr 08/14/19 06:50: Hemoglobin A1c 4.8 08/14/19 09:20: Urine Color Yellow, Urine Appearance Clear, Urine pH 5.5, Ur Specific [place] >= 1.030, Urine Protein Negative, Urine Glucose (UA) Negative, Urine Ketones Negative, Urine Blood Trace-l, Urine Nitrate Negative, Urine Bilirubin Negative, Urine Urobilinogen 1.0, Ur Leukocyte Esterase Negative, Urine RBC None, Urine WBC Occasional, Ur Squamous Epith Cells Occasional, Ur Transition Epith Cell 3-5, Urine Bacteria None 08/15/19 07:19: WBC 9.2, RBC 3.71 L, Hgb 12.3 L, Hct 37.2 L, MCV 100.2 H, MCH 33.2 H, MCHC 33.1, RDW 13.3, Plt Count 166 D, MPV 7.9, Neut % (Auto) 78.7, Lymph % (Auto) 9.1 L, [place] % (Auto) 10.1 H, Eos % (Auto) 1.6, Baso % (Auto) 0.4, Neut # (Auto) 7.2, Lymph # (Auto) 0.8, [place] # (Auto) 0.9, Eos # (Auto) 0.2, Baso # (Auto) 0.0 I & O for Last 24 hours: Intake & Output 08/12/19 08/13/19 08/14/19 08/15/19 11:59 11:59 11:59 11:59 Intake Total 2963 / 2963 2038 Output Total 1050 / 1050 1650 / 1650 Balance 1912 / 1912 389 / 389 Weight 135 lb 138 lb 7 oz 136 lb 3.931 oz - *Routine Abdominal Exam Present: soft, tenderness Progress Note: A&P (1) Seizure disorder Status: Acute Current Visit: Yes (2) SBO (small bowel obstruction) Status: Acute Current Visit: Yes (3) Hypothyroidism Status: Acute Current Visit: Yes Assessment and Plan for All Diagnoses:: Advance nasogastric tube. Continue nasogastric tube due to likely prolonged ileus due to obstruction. DC Michael. Plan to consult physical therapy as increasing mobilization would be beneficial however the patient is nonweightbearing on his lower extremity.
[2019-08-15 08:06] LABS: Albumin Level 3.2 g/dl (3.5-5.0); Albumin/Globulin Ratio 1.1 (1.1-1.8); Anion Gap 12.1 mEq/L (5-15); Bilirubin,Total 0.5 mg/dl (0.2-1.3); Calcium 8.5 mg/dl (8.4-10.2); Globulin 2.8 g/dL (1.3-3.2)
[2019-08-15 08:25] LABS: Phenytoin (Dilantin) 9.4 ug/ml (10-20)
--- NOTE | 2019-08-15 08:30 | Progress Note ---
Internal Medicine - PN: Subj *Date: 08/15/19 *Time: 08:28 Interval history: Patient underwent laparotomy with lysis of adhesions yesterday. His only complaint of pain this morning is coming from the NG tube which is become slightly dislodged and is being repositioned. Patient denies abdominal pain unless he coughs. He is sitting up in the chair Exam Vital signs and Labs for Last 24 Hours: Temp Pulse Resp BP Pulse Ox 97.6 F 82 17 122/71 97 08/15/19 08:00 08/15/19 08:00 08/15/19 08:00 08/15/19 08:00 08/15/19 08:00 Laboratory Results - last 24 hr 08/14/19 06:50: Hemoglobin A1c 4.8 08/14/19 09:20: Urine Color Yellow, Urine Appearance Clear, Urine pH 5.5, Ur Specific [place] >= 1.030, Urine Protein Negative, Urine Glucose (UA) Negative, Urine Ketones Negative, Urine Blood Trace-l, Urine Nitrate Negative, Urine Bilirubin Negative, Urine Urobilinogen 1.0, Ur Leukocyte Esterase Negative, Urine RBC None, Urine WBC Occasional, Ur Squamous Epith Cells Occasional, Ur T ransition Epith Cell 3-5, Urine Bacteria None 08/15/19 07:19: WBC 9.2, RBC 3.71 L, Hgb 12.3 L, Hct 37.2 L, MCV 100.2 H, MCH 33.2 H, MCHC 33.1, RDW 13.3, Plt Count 166 D, MPV 7.9, Neut % (Auto) 78.7, Lymph % (Auto) 9.1 L, [place] % (Auto) 10.1 H, Eos % (Auto) 1.6, Baso % (Auto) 0.4, Neut # (Auto) 7.2, Lymph # (Auto) 0.8, [place] # (Auto) 0.9, Eos # (Auto) 0.2, Baso # (Auto) 0.0 08/15/19 07:19: Sodium 135 L, Potassium 4.1, Chloride 100, Carbon Dioxide 27, Anion Gap 12.1, BUN 11, Creatinine 0.90, Estimated Creat Clear 66, Estimated GFR 85, Est GFR ( Amer) 103, Glucose 104 H, Calcium 8.5, Total Bilirubin 0.5, AST 30, ALT 16, Alkaline Phosphatase 125, Total Protein 6.0 L, Albumin 3.2 L, Globulin 2.8, Albumin/Globulin Ratio 1.1, Phenytoin 9.4 L I & O for Last 24 hours: Intake & Output 08/12/19 08/13/19 08/14/19 08/15/19 11:59 11:59 11:59 11:59 Intake Total 2963 / 2963 2038 Output Total 1050 / 1050 1650 / 1650 Balance 1912 / 1912 389 / 389 Weight 135 lb 138 lb 7 oz 136 lb 3.931 oz Narrative: Patient does not appear to be in any distress. He answers questions distinctly. NG tube is intact in the right nare. Lungs are clear. Heart has a regular rate and rhythm. Abdomen is soft with surgical dressing intact. Bowel sounds are absent. Patient's right foot and ankle are in an orthopedic boot. Patient is able to move his knee and hip on the right and fully flex the hip knee, ankle and foot in the left leg. Dilantin level noted at 9.4 Assessment and Plan (1) SBO (small bowel obstruction) Current visit: Yes Status: Acute Category: Medical Code(s): K56.609 - Unspecified intestinal obstruction, unspecified as to partial versus complete obstruction (2) Seizure disorder Current visit: Yes Status: Acute Category: Medical Code(s): G40.909 - Epilepsy, unspecified, not intractable, without status epilepticus (3) Hypothyroidism Current visit: Yes Status: Acute Category: Medical Code(s): E03.9 - Hypothyroidism, unspecified - Assessment and plan all Dx Assessment and Plan for all problems:: 1. No change in dosing of Dilantin 2. Postoperative care per Dr. Lux
[2019-08-15 16:43] LABS: Hepatitis B Surface Antigen Negative (Negative)
[2019-08-15 17:42] LABS: HIV Screen 4th Generation wRfx Non Reactive (Non Reactive); Hepatitis C Antibody <0.1 s/co ratio (0.0-0.9)
--- NOTE | 2019-08-16 07:21 | Progress Note ---
Internal Medicine - PN: Subj *Date: 08/16/19 *Time: 07:20 Interval history: Overall patient did well through the night but his sister reports occasional transient confusion. Reports that his intra-abdominal pain is much better, has mild incisional pain. Exam Vital signs and Labs for Last 24 Hours: Temp Pulse Resp BP Pulse Ox 97.9 F 86 18 150/68 H 96 08/16/19 04:00 08/16/19 04:00 08/16/19 04:00 08/16/19 04:00 08/16/19 04:00 Laboratory Results - last 24 hr 08/14/19 08:23: Hepatitis A IgM Ab Negative, Hep Bs Antigen Negative, Hep B Core IgM Ab Negative, Hepatitis C Antibody <0.1 08/14/19 08:23: HIV 1&2 Ag/Ab, 4th Gen Non reactive 08/15/19 07:19: WBC 9.2, RBC 3.71 L, Hgb 12.3 L, Hct 37.2 L, MCV 100.2 H, MCH 33.2 H, MCHC 33.1, RDW 13.3, Plt Count 166 D, MPV 7.9, Neut % (Auto) 78.7, Lymph % (Auto) 9.1 L, [place] % (Auto) 10.1 H, Eos % (Auto) 1.6, Baso % (Auto) 0.4, Neut # (Auto) 7.2, Lymph # (Auto) 0.8, [place] # (Auto) 0.9, Eos # (Auto) 0.2, Baso # (Auto) 0.0 08/15/19 07:19: Sodium 135 L, Potassium 4.1, Chloride 100, Carbon Dioxide 27, Anion Gap 12.1, BUN 11, Creatinine 0.90, Estimated Creat Clear 66, Estimated GFR 85, Est GFR ( Amer) 103, Glucose 104 H, Calcium 8.5, Total Bilirubin 0.5, AST 30, ALT 16, Alkaline Phosphatase 125, Total Protein 6.0 L, Albumin 3.2 L, Globulin 2.8, Albumin/Globulin Ratio 1.1, Phenytoin 9.4 L I & O for Last 24 hours: Intake & Output 08/13/19 08/14/19 08/15/19 08/16/19 11:59 11:59 11:59 11:59 Intake Total 2963 / 2963 2038 / 2038 873 / 873 Output Total 1050 / 1050 1650 / 1650 2225 / 2225 Balance 1913 / 1913 389 / 389 -1352 / -1352 Weight 135 lb 138 lb 7 oz 136 lb 3.931 oz 140 lb 9 oz Narrative: Patient is pleasant, alert, oriented this morning. Heart rate regular, anterior lung [place] clear. Oropharynx and ENT exam clear. Neurologic exam intact. Abdomen softer. No bowel sounds. NG tube in good position. Extremities warm and well-perfused. Right ankle scar healing. Assessment and Plan (1) SBO (small bowel obstruction) Current visit: Yes Status: Acute Category: Medical Code(s): K56.609 - Unspecified intestinal obstruction, unspecified as to partial versus complete obstruction (2) Seizure disorder Current visit: Yes Status: Acute Category: Medical Code(s): G40.909 - Epilepsy, unspecified, not intractable, without status epilepticus (3) Hypothyroidism Current visit: Yes Status: Acute Category: Medical Code(s): E03.9 - Hypothyroidism, unspecified (4) Ankle fracture, right Current visit: No Status: Acute Qualifiers: Encounter type: initial encounter Fracture type: closed Qualified Code(s): S82.891A - Other fracture of right lower leg, initial encounter for closed fracture Category: Medical Code(s): S82.891A - Other fracture of right lower leg, initial encounter for closed fracture - Assessment and plan all Dx Assessment and Plan for all problems:: Patient is doing well postoperatively. Expected hospital disorientation is clearing this morning. Podiatry evaluation for ongoing ankle recovery. PT note reviewed. Encouraged patient being as ambulatory as possible to help with bowel motility. Follow along with surgery.
--- NOTE | 2019-08-16 07:47 | Progress Note ---
Subjective Narrative: Patient states that he feels well. He wants his NG tube out. He is chewing some gum. Has not passed flatus. Physical therapy has seen the patient. Exam Vital signs and Labs for Last 24 Hours: Temp Pulse Resp BP Pulse Ox 97.9 F 86 18 150/68 H 96 08/16/19 04:00 08/16/19 04:00 08/16/19 04:00 08/16/19 04:00 08/16/19 04:00 Laboratory Results - last 24 hr 08/14/19 08:23: Hepatitis A IgM Ab Negative, Hep Bs Antigen Negative, Hep B Core IgM Ab Negative, Hepatitis C Antibody <0.1 08/14/19 08:23: HIV 1&2 Ag/Ab, 4th Gen Non reactive 08/15/19 07:19: Sodium 135 L, Potassium 4.1, Chloride 100, Carbon Dioxide 27, Anion Gap 12.1, BUN 11, Creatinine 0.90, Estimated Creat Clear 66, Estimated GFR 85, Est GFR ( Amer) 103, Glucose 104 H, Calcium 8.5, Total Bilirubin 0.5, AST 30, ALT 16, Alkaline Phosphatase 125, Total Protein 6.0 L, Albumin 3.2 L, Globulin 2.8, Albumin/Globulin Ratio 1.1, Phenytoin 9.4 L I & O for Last 24 hours: Intake & Output 08/13/19 08/14/19 08/15/19 08/16/19 11:59 11:59 11:59 11:59 Intake Total 2963 / 2963 2039 / 2039 873 / 873 Output Total 1050 / 1050 1650 / 1650 2225 / 2225 Balance 1913 / 1913 389 / 389 -1352 / -1352 Weight 135 lb 138 lb 7 oz 136 lb 3.931 oz 140 lb 9 oz - *Routine Abdominal Exam Present: soft Comments: He has some incisional tenderness. Progress Note: A&P (1) SBO (small bowel obstruction) Status: Acute Assessment and plan: Add ice chips. Plan to place NG tube to gravity. Hopefully be able to remove this relatively soon. Current Visit: Yes (2) Seizure disorder Status: Acute Current Visit: Yes (3) Hypothyroidism Status: Acute Current Visit: Yes (4) Ankle fracture, right Status: Acute Current Visit: No
--- NOTE | 2019-08-17 06:56 | Progress Note ---
Subjective Narrative: Patient without any new complaints. NG tube has been to straight drain with checking of residuals overnight. Minimal residual of 100 cc over night. He does state that he passed some gas. He denies nausea. He has been able to get mobile with the scooter. Exam Vital signs and Labs for Last 24 Hours: Temp Pulse Resp BP Pulse Ox 98.7 F 90 16 136/79 95 08/17/19 04:00 08/17/19 04:00 08/17/19 04:00 08/17/19 04:00 08/17/19 04:00 I & O for Last 24 hours: Intake & Output 08/14/19 08/15/19 08/16/19 08/17/19 11:59 11:59 11:59 11:59 Intake Total 2963 / 2963 2039 / 2039 1809 / 1809 3095 / 3095 Output Total 1050 / 1050 1650 / 1650 2745 / 2745 1055 / 1055 Balance 1913 / 1913 389 / 389 -936 / -936 2039 / 2039 Weight 138 lb 7 oz 136 lb 3.931 oz 140 lb 9 oz 137 lb 7 oz - *Routine Abdominal Exam Comments: Abdomen is slightly distended. Progress Note: A&P (1) SBO (small bowel obstruction) Status: Acute Current Visit: Yes (2) Seizure disorder Status: Acute Current Visit: Yes (3) Hypothyroidism Status: Acute Current Visit: Yes (4) Ankle fracture, right Status: Acute Current Visit: No Assessment and Plan for All Diagnoses:: DC NG tube. Continue to limit to ice chips and gum for now.
--- NOTE | 2019-08-17 12:47 | Progress Note ---
Internal Medicine - PN: Subj *Date: 08/17/19 *Time: 08:30 Interval history: Pleasant and interactive this morning on interview. No acute distress in bedside chair. Complaining of incision site pain but no significant abdominal pain. NG out this morning. Passing flatus overnight per his report. Denies any nausea, vomiting, diarrhea. As of breath, chest pain, headache. Family at bedside and updated of plan. Exam Vital signs and Labs for Last 24 Hours: Temp Pulse Resp BP Pulse Ox 98.6 F 79 18 130/64 96 08/17/19 12:00 08/17/19 12:00 08/17/19 12:00 08/17/19 12:00 08/17/19 12:00 I & O for Last 24 hours: Intake & Output 08/14/19 08/15/19 08/16/19 08/17/19 23:59 23:59 23:59 23:59 Intake Total 2056 / 2056 1912 / 1912 2500 / 2500 1531 / 1531 Output Total 950 / 950 2300 / 2550 2195 / 2195 705 / 705 Balance 1106 / 1106 -388 / -638 305 / 305 826 / 826 Weight 62.794 kg 61.8 kg 63.758 kg 62.341 kg Narrative: Patient is pleasant, alert, oriented this morning, in bedside chair on exam. Thin appearance Heart rate regular, anterior lung [place] clear. Oropharynx and ENT exam clear. Neurologic exam intact. Abdomen softer. active bowel sounds. Midline surgical scar clean dry and intact, bandage still in place. Extremities warm and well-perfused. Right ankle scar healing. Assessment and Plan (1) SBO (small bowel obstruction) Current visit: Yes Status: Acute Category: Medical Code(s): K56.609 - Unspecified intestinal obstruction, unspecified as to partial versus complete obstruction (2) Seizure disorder Current visit: Yes Status: Acute Category: Medical Code(s): G40.909 - Epilepsy, unspecified, not intractable, without status epilepticus (3) Hypothyroidism Current visit: Yes Status: Acute Category: Medical Code(s): E03.9 - Hyp othyroidism, unspecified (4) Ankle fracture, right Current visit: No Status: Acute Qualifiers: Encounter type: initial encounter Fracture type: closed Qualified Code(s): S82.891A - Other fracture of right lower leg, initial encounter for closed fracture Category: Medical Code(s): S82.891A - Other fracture of right lower leg, initial encounter for closed fracture - Assessment and plan all Dx Assessment and Plan for all problems:: Patient is doing well postoperatively, no acute distress. Expected hospital disorientation resolved. Podiatry evaluation for ongoing ankle recovery. PT note reviewed. Encouraged patient being as ambulatory as possible to help with bowel motility, PT seeing patient today Surgery consulted, appreciate recommendations. Recommend ice chips and gum for now. Will slowly advance diet pending improvement and activity of bowels Continues to require inpatient management pending advancement of diet and tolerance of p.o. therapies/meds
[2019-08-18 06:33] LABS: Basophils % 0.5 % (0.1-2.0); Eosinophils # 0.4 K/mm3 (0.0-0.4); Eosinophils % 6.1 % (0.1-12.0); Hemoglobin 12.4 g/dL (14.1-18.0); Lymphocytes # 0.7 K/mm3 (0.7-4.5); Lymphocytes % 10.5 % (10-50); Mean Corpuscular HGB Conc 34.3 g/dL (31.8-35.4); Mean Corpuscular Volume 96.9 fl (80-94); Mean Platelet Volume 7.5 fl (7.4-10.4); Monocytes # 0.7 K/mm3 (0.1-1.0); Monocytes % 10.4 % (1.7-9.3); Neutrophils # 4.8 K/mm3 (1.8-7.8); Neutrophils % 72.6 % (37.0-80.0); Platelet Count 195 K/mm3 (142-424); Red Blood Count 3.72 M/mm3 (4.60-6.20); Red Cell Distribution Width 12.5 % (11.5-17.5); White Blood Count 6.6 K/mm3 (4.8-10.8)
[2019-08-18 06:49] LABS: Anion Gap 15.3 mEq/L (5-15); Calcium 8.3 mg/dl (8.4-10.2)
--- NOTE | 2019-08-18 07:11 | Progress Note ---
Subjective Narrative: Patient feels better with his nasogastric tube out. Has passed some gas but no bowel movements. Denies nausea. Exam Vital signs and Labs for Last 24 Hours: Temp Pulse Resp BP Pulse Ox 98.2 F 79 21 148/89 H 97 08/18/19 04:00 08/18/19 04:00 08/18/19 04:00 08/18/19 04:00 08/18/19 04:00 Laboratory Results - last 24 hr 08/18/19 05:30: WBC 6.6 D, RBC 3.72 L, Hgb 12.4 L, Hct 36.0 L, MCV 96.9 H, MCH 33.3 H, MCHC 34.3, RDW 12.5, Plt Count 195, MPV 7.5, Neut % (Auto) 72.6, Lymph % (Auto) 10.5, [place] % (Auto) 10.4 H, Eos % (Auto) 6.1, Baso % (Auto) 0.5, Neut # (Auto) 4.8, Lymph # (Auto) 0.7, [place] # (Auto) 0.7, Eos # (Auto) 0.4, Baso # (Auto) 0.0 08/18/19 05:30: Sodium 135 L, Potassium 3.3 L, Chloride 98, Carbon Dioxide 25, Anion Gap 15.3 H, BUN 7 L D, Creatinine 0.80, Estimated Creat Clear 64, Estimated GFR 98, Est GFR ( Amer) 118, Glucose 72 L, Calcium 8.3 L I & O for Last 24 hours: Intake & Output 08/15/19 08/16/19 08/17/19 08/18/19 11:59 11:59 11:59 11:59 Intake Total 2038 / 2038 1809 / 1809 3095 / 3095 2892 / 2892 Output Total 1650 / 1650 2745 / 2745 1055 / 1055 400 / 400 Balance 389 / 389 -936 / -936 2039 / 2039 2492 / 2492 Weight 136 lb 3.931 oz 140 lb 9 oz 137 lb 7 oz 132 lb 2 oz - *Routine Abdominal Exam Present: soft Comments: His incision is clean and intact. He seems to be somewhat distended. Progress Note: A&P (1) SBO (small bowel obstruction) Status: Acute Current Visit: Yes (2) Seizure disorder Status: Acute Current Visit: Yes (3) Hypothyroidism Status: Acute Current Visit: Yes (4) Ankle fracture, right Status: Acute Current Visit: No Assessment and Plan for All Diagnoses:: We will give limited clear liquids. Switch to oral pain medications.
--- NOTE | 2019-08-18 07:16 | Progress Note ---
Internal Medicine - PN: Subj *Date: 08/18/19 *Time: 07:14 Interval history: Patient is tolerated NG tube removal over the past 24 hours very nicely. Tolerated his advance in diet very nicely. Has had flatus. Continues to have some issues with ambulation. Has had some nighttime disorientation episodes but is reoriented very easily. Exam Vital signs and Labs for Last 24 Hours: Temp Pulse Resp BP Pulse Ox 98.2 F 79 21 148/89 H 97 08/18/19 04:00 08/18/19 04:00 08/18/19 04:00 08/18/19 04:00 08/18/19 04:00 Laboratory Results - last 24 hr 08/18/19 05:30: WBC 6.6 D, RBC 3.72 L, Hgb 12.4 L, Hct 36.0 L, MCV 96.9 H, MCH 33.3 H, MCHC 34.3, RDW 12.5, Plt Count 195, MPV 7.5, Neut % (Auto) 72.6, Lymph % (Auto) 10.5, [place] % (Auto) 10.4 H, Eos % (Auto) 6.1, Baso % (Auto) 0.5, Neut # (Auto) 4.8, Lymph # (Auto) 0.7, [place] # (Auto) 0.7, Eos # (Auto) 0.4, Baso # (Auto) 0.0 08/18/19 05:30: Sodium 135 L, Potassium 3.3 L, Chloride 98, Carbon Dioxide 25, Anion Gap 15.3 H, BUN 7 L D, Creatinine 0.80, Estimated Creat Clear 64, Estimated GFR 98, Est GFR ( Amer) 118, Glucose 72 L, Calcium 8.3 L I & O for Last 24 hours: Intake & Output 08/15/19 08/16/19 08/17/19 08/18/19 11:59 11:59 11:59 11:59 Intake Total 2038 1809 / 1809 3095 / 3095 2892 / 2892 Output Total 1649 / 1649 2745 / 2745 1055 / 1055 400 / 400 Balance 389 / 389 -936 / -936 2039 / 2039 2492 / 2492 Weight 136 lb 3.931 oz 140 lb 9 oz 137 lb 7 oz 132 lb 2 oz Narrative: Patient is pleasant. Alert. Oriented x3. Oropharynx with poor dentition but clear. No JVD. Abdomen is softer. Some tenderness, incision site looks great. Lungs are clear bilaterally. Heart rate regular. Moves all extremities well. No distal perfusion problems. Assessment and Plan (1) SBO (small bowel obstruction) Current visit: Yes Status: Acute Category: Medical Code(s): K56.609 - Unspecified intestinal obstruction, unspecified as to partial versus complete obstruction (2) Seizure disorder Current visit: Yes Status: Acute Category: Medical Code(s): G40.909 - Epilepsy, unspecified, not intractable, without status epilepticus (3) Hypothyroidism Current visit: Yes Status: Acute Category: Medical Code(s): E03.9 - Hypothyroidism, unspecified (4) Ankle fracture, right Current visit: No Status: Acute Qualifiers: Encounter type: initial encounter Fracture type: closed Qualified Code(s): S82.891A - Other fracture of right lower leg, initial encounter for closed fracture Category: Medical Code(s): S82.891A - Other fracture of right lower leg, initial encounter for closed fracture - Assessment and plan all Dx Assessment and Plan for all problems:: Overall improving. Switch Dilantin back to p.o. administration. Advance diet. Hopefully discharge this week.
--- NOTE | 2019-08-19 06:47 | Progress Note ---
Subjective Patient reports: no new complaints, flatus, bowel movement (He states that he has had "quite a few loose" bowel movements) Narrative: He was placed on a full liquid diet last evening and seems to have tolerated this without difficulty. Exam Vital signs and Labs for Last 24 Hours: Temp Pulse Resp BP Pulse Ox 98.0 F 96 H 20 126/78 96 08/19/19 04:00 08/19/19 04:00 08/19/19 04:00 08/19/19 04:00 08/19/19 04:00 Laboratory Results - last 24 hr 08/18/19 05:30: WBC 6.6 D, RBC 3.72 L, Hgb 12.4 L, Hct 36.0 L, MCV 96.9 H, MCH 33.3 H, MCHC 34.3, RDW 12.5, Plt Count 195, MPV 7.5, Neut % (Auto) 72.6, Lymph % (Auto) 10.5, [place] % (Auto) 10.4 H, Eos % (Auto) 6.1, Baso % (Auto) 0.5, Neut # (Auto) 4.8, Lymph # (Auto) 0.7, [place] # (Auto) 0.7, Eos # (Auto) 0.4, Baso # (Auto) 0.0 08/18/19 05:30: Sodium 135 L, Potassium 3.3 L, Chloride 98, Carbon Dioxide 25, Anion Gap 15.3 H, BUN 7 L D, Creatinine 0.80, Estimated Creat Clear 64, Estimated GFR 98, Est GFR ( Amer) 118, Glucose 72 L, Calcium 8.3 L I & O for Last 24 hours: Intake & Output 08/16/19 08/17/19 08/18/19 08/19/19 11:59 11:59 11:59 11:59 Intake Total 1809 / 1809 3095 / 3095 3252 / 3252 2420 / 2420 Output Total 2745 / 2745 1055 / 1055 400 / 400 1100 / 1100 Balance -936 / -936 2040 / 2040 2852 / 2852 1320 / 1320 Weight 140 lb 9 oz 137 lb 7 oz 132 lb 2 oz - Constitutional no acute distress - *Routine Respiratory Exam Absent: respiratory distress - *Routine Cardiovascular Exam Present: RRR - *Routine Abdominal Exam Present: soft. Absent: distended Comments: Incision clean, dry, and intact. No erythema. Progress Note: A&P (1) SBO (small bowel obstruction) Status: Acute Assessment and plan: Overall, doing well status post laparotomy with adhesiolysis Likely discharge home soon (depending on toleration of diet advancement) Current Visit: Yes (2) Seizure disorder Status: Acute Current Visit: Yes (3) Hypothyroidism Status: Acute Current Visit: Yes (4) Ankle fracture, right Status: Acute Current Visit: No (5) Postoperative ileus Status: Acute Assessment and plan: Resolving...seemingly tolerating full liquids. Advance to soft diet for lunch Current Visit: Yes
--- NOTE | 2019-08-19 08:19 | Progress Note ---
Internal Medicine - PN: Subj *Date: 08/19/19 *Time: 08:17 Interval history: Already full liquids. Having bowel movements and urine output. Patient otherwise doing well. Remains afebrile, stable on room air, hemodynamically stable. Normotensive. Labs this morning stable. No cough, congestion, chest pain, shortness of breath. Abdominal pain improving. Exam Vital signs and Labs for Last 24 Hours: Temp Pulse Resp BP Pulse Ox 98.5 F 70 16 121/74 96 08/19/19 07:50 08/19/19 07:50 08/19/19 07:50 08/19/19 07:50 08/19/19 07:50 I & O for Last 24 hours: Intake & Output 08/16/19 08/17/19 08/18/19 08/19/19 23:59 23:59 23:59 23:59 Intake Total 2500 / 2500 3372 / 3372 2841 / 2841 990 / 990 Output Total 2195 / 2195 1105 / 1105 800 / 800 300 / 300 Balance 305 / 305 2267 / 2267 2041 / 2041 690 / 690 Weight 63.758 kg 62.341 kg 59.931 kg 60.526 kg Narrative: Patient is pleasant. Alert. Oriented x3. Oropharynx with poor dentition but clear. No JVD. Abdomen is soft. Some tenderness around incision site, incision site looks great. Lungs are clear bilaterally. Heart rate regular. Moves all extremities well. No distal perfusion problems. Assessment and Plan (1) SBO (small bowel obstruction) Current visit: Yes Status: Acute Category: Medical Code(s): K56.609 - Unspecified intestinal obstruction, unspecified as to partial versus complete obstruction (2) Seizure disorder Current visit: Yes Status: Acute Category: Medical Code(s): G40.909 - Epilepsy, unspecified, not intractable, without status epilepticus (3) Hypothyroidism Current visit: Yes Status: Acute Category: Medical Code(s): E03.9 - Hypothyroidism, unspecified (4) Ankle fracture, right Current visit: No Status: Acute Qualifiers: Encounter type: initial encounter Fracture type: closed Qualified Code(s): S82.891A - Other fracture of right lower leg, initial encounter for closed fracture Category: Medical Code(s): S82.891A - Other fracture of right lower leg, in itial encounter for closed fracture (5) Postoperative ileus Current visit: Yes Status: Acute Category: Medical Code(s): K91.89 - Other postprocedural complications and disorders of digestive system; K56.7 - Ileus, unspecified - Assessment and plan all Dx Assessment and Plan for all problems:: Patient appears to be progressing well. Advance diet today. If tolerates soft diet, will be criteria to go home tomorrow.
--- NOTE | 2019-08-19 13:11 | Consult Report ---
*Admission Date: 08/13/19 *Reason for consult:: Right ankle ORIF *History of present illness: Patient is known to me, as he underwent a right ankle ORIF (medial malleolus, distal fibula), syndesmosis ORIF on 07/14/19. Patient is resting comfortably in chair. He denies pain to the right ankle. He has been up with physical therapy. Review of Systems - Review of Systems Review of systems:: pertinent systems reviewed and negative unless documented below - Constitutional Denies chills - Eyes Denies blind spots - ENT Denies abnormal hearing - *Cardiovascular Denies chest pain - *Respiratory Denies shortness of breath - *Gastrointestinal Reports change in bowel habits, Reports constipation - *Genitourinary Denies difficulty urinating - *Musculoskeletal Reports joint swelling, Reports limited joint movement - Integumentary/Breasts Denies change in hair - *Neurologic Denies localized weakness, Denies seizure-like activity - Psychiatric Denies abnormal sleep pattern - Endocrine Denies cold intolerance - Allergic/Immunologic Reports GI upset with certain foods [facility] History I have reviewed the patient's past medical history: Yes Medical History: Reports:: Cancer (Thyroid), Seizures (since last 20 years ago) Denies:: Diabetes Mellitus Type 1, Diabetes Mellitus Type 2, Internal Pacemaker, MRSA *Have you ever received a pneumonia vaccine?: No *Have you received a flu vaccine this season?: No Other Medical History: Reports: Chemotherapy, Hypothyroidism, Thyroid Disease (Thyroid cancer), Other. Denies: Blood Transfusion Reaction Anesthesia experience/problems:: no prior complications Other Surgeries: Yes: Colonoscopy. No: Pacemaker Amputation: No Fractures: Yes (Fractured collar bone, and fractured ribs 7 years ago ) - *Social History Educational Level: Completed High School Smoking Status: Current every day smoker Tobacco Type: smokeless tobacco # Packs/Day (cigarettes): 0 Alcohol Intake: former Alcohol Intake Frequency:: holidays/special occasions only Substance Use Type: denies use *Occupational Status:: employed Housing: house Household Members: none *Travel in the last 8 weeks: None Family Hx:: Cancer, Coronary Artery Disease, Heart Attack Meds Home Medications Medication Instructions Recorded Confirmed Type Phenytoin Sodium Extended 100 mg PO DAILY 03/10/19 08/13/19 History [Dilantin 100mg Capsule] Ergocalciferol (Vitamin D2) 50,000 unit PO WEEKLY 07/13/19 08/13/19 History [Drisdol] Levothyroxine Sodium 150 mcg PO DAILY 08/13/19 08/13/19 History [Levothyroxine 150mcg (0.15mg) Tab] Phenytoin Sodium Extended 200 mg PO 1800 08/13/19 08/18/19 History [Dilantin 100mg Capsule] Allergies Allergy/AdvReac Type Severity Reaction Status Date / Time No Known Allergies Allergy Verified 08/13/19 06:04 Exam Vital signs and Labs for Last 24 Hours: Temp Pulse Resp BP Pulse Ox 98.5 F 70 16 121/74 96 08/19/19 07:50 08/19/19 07:50 08/19/19 07:50 08/19/19 07:50 08/19/19 07:50 I & O for Last 24 hours: Intake & Output 08/17/19 08/18/19 08/19/19 08/20/19 11:59 11:59 11:59 11:59 Intake Total 3095 / 3095 3252 / 3252 2420 / 2420 Output Total 1055 / 1055 400 / 400 1100 / 1100 Balance 2040 / 2040 2852 / 2852 1320 / 1320 Weight 137 lb 7 oz 132 lb 2 oz 133 lb 7 oz - Constitutional no acute distress - *Routine HEENT Exam Head: Present: normocephalic - *Routine Neck Exam Present: supple - *Routine Respiratory Exam Absent: respiratory distress - *Routine Cardiovascular Exam Present: RRR - *Routine Abdominal Exam Absent: obese - *Routine Rectal Exam Patient deferred: visual exam - *Routine Exam Patient deferred: penile exam - *Routine Skin Exam Present: intact, warm - *Routine Neurological Exam Present: alert, oriented X3, moving all extremities - Detailed Lower Extremity Exam Leg image: 1 - Right ankle non pitting edema noted. Right ankle ROM fluid without pain but stiffness noted. No pain to distal fibula or medial malleolus. No pain with ankle or STJ ROM. Light touch sensation and motor function intact. No calf or thigh pain noted b/l. Results - Labs Result Diagrams: 08/18/19 05:30 08/18/19 05:30 Labs: H & H 08/13/19 08/14/19 08/15/19 Range/Units 06:25 06:00 07:19 Hgb 14.8 14.9 12.3 L (14.1-18.0) g/dL Hct 44.6 45.1 37.2 L (42.0-52.0) % 08/18/19 Range/Units 05:30 Hgb 12.4 L (14.1-18.0) g/dL Hct 36.0 L (42.0-52.0) % All other labs normal. - Diagnostic results Ankle/Foot x-ray: report reviewed, image reviewed Assessment and Plan (1) SBO (small bowel obstruction) Current visit: Yes Status: Acute Category: Medical Code(s): K56.609 - Uns pecified intestinal obstruction, unspecified as to partial versus complete obstruction (2) Seizure disorder Current visit: Yes Status: Acute Category: Medical Code(s): G40.909 - Epilepsy, unspecified, not intractable, without status epilepticus (3) Hypothyroidism Current visit: Yes Status: Acute Category: Medical Code(s): E03.9 - Hypothyroidism, unspecified (4) Ankle fracture, right Current visit: No Status: Acute Qualifiers: Encounter type: initial encounter Fracture type: closed Qualified Code(s): S82.891A - Other fracture of right lower leg, initial encounter for closed fracture Category: Medical Code(s): S82.891A - Other fracture of right lower leg, initial encounter for closed fracture (5) Postoperative ileus Current visit: Yes Status: Acute Category: Medical Code(s): K91.89 - Other postprocedural complications and disorders of digestive system; K56.7 - Ileus, unspecified (6) Status post open reduction with internal fixation (ORIF) of fracture of ankle Current visit: Yes Status: Acute Category: Surgical Code(s): Z98.890 - Other specified postprocedural states; Z87.81 - Personal history of (healed) traumatic fracture (7) Edema of right ankle Current visit: Yes Status: Acute Category: Medical Code(s): M25.471 - Effusion, right ankle (8) Closed bimalleolar fracture of right ankle with routine healing Current visit: Yes Status: Acute Category: Medical Code(s): S82.841D - Displaced bimalleolar fracture of right lower leg, subsequent encounter for closed fracture with routine healing - Assessment and plan all Dx Assessment and Plan for all problems:: 07/14/19, s/p right ankle ORIF (medial malleolus, distal fibula), syndesmosis ORIF POV # 3 POD # 5w, 1d X-rays taken 3 views right ankle 08/17/19, evaluated. Report noted. FINDINGS: The splint has been removed. Lateral bone plate at the distal fibula and medial bone plate at the distal tibia once again noted with translucent fixator between the distal tib fib. There is good alignment. There is preservation of the ankle mortise. Unremarkable appearing talar dome. There is a small calcaneal spur and there is minimal calcification along the anterior distal tibia. IMPRESSION: Good alignment status post ORIF. Skin well healed. Some edema noted. Discussed elevation and ice as needed. Use compression sleeve. ROM stiff. Discussed starting physical therapy. 1. Transition from NWB in fracture boot with RKS to progressive PWB in boot with walker 2. Starting 08/23/19, patient may start to put 25% body weight down in the boot ( toe touch) with walker, gradually increase 25-50% body weight over next week. Then progress to 50-75-100% body weight in boot. 3. E-Rx given for physical therapy. PT to include: Stretching, strengthening, balance and range of motion. PT can include but is not limited to the following modalities: Ultrasound, electrical stimulation, iontophoresis, medicated patches, bracing and inserts. 4. Patient will need home physical therapy, as he is not yet driving 5. Has f/u scheduled for 08/26/19 and we will fit and dispense an ankle brace at that visit.
--- NOTE | 2019-08-20 00:17 | Discharge Summary ---
General - General Admission date:: 08/13/19 Discharge date: 08/20/19 HPI HPI: Patient is a 64-year-old pleasant thin white male. He was in his usual state of health reportedly until yesterday afternoon at approximately 5 PM which time he developed some mid abdominal pain. This became much more severe this morning at approximately 5:30 AM and he presented to the emergency department. He was seen and evaluated underwent thorough work-up which included CT scan with IV contrast. This revealed findings consistent with bowel obstruction. Surgical consultation was obtained. Patient denies any nausea. He states he actually feels somewhat better. He has had no change in his bowel habits. He is never had any previous abdominal surgery. Of note, the patient did sustain minor trauma approximately 5 weeks ago at which time he had fallen approximately 4 feet sustaining a right ankle injury. He has taken two doses of opiates for pain relief. He has not had any abdominal pain since that until yesterday when he developed these current symptoms. Patient has previously undergone colonoscopy. Reports good improvement but no flatus post NG tube placement. Hospital Course Hospital Course: 64-year-old gentleman with small bowel obstruction. Admitted for conservative management with decompression. Unfortunately had no resolution and necessitated exploratory laparotomy. Found to have adhesion that was taken down. Diet was gradually advanced with good tolerance. No further episodes during admission. During admission. He is remained afebrile, normotensive. Did have some mild confusion intermittently during admission that resolved after holding pain medication and improving day night routine. Both podiatry and surgery were consulted on patient during admission. Their recommendations are as follows. Medically stable for discharge home. Patient denies chest pain, nausea, vomiting, shortness of breath. Pain in foot stable. No confusion in the past 24 hours. Per Podiatry: 1. Transition from NWB in fracture boot with RKS to progressive PWB in boot with walker 2. Starting 08/23/19, patient may start to put 25% body weight down in the boot (toe touch) with walker, gradually increase 25-50% body weight over next week. Then progress to 50-75-100% body weight in boot. 3. E-Rx given for physical therapy. PT to include: Stretching, strengthening, balance and range of motion. PT can include but is not limited to the following modalities: Ultrasound, electrical stimulation, iontophoresis, medicated patches, bracing and inserts. 4. Patient will need home physical therapy, as he is not yet driving 5. Has f/u scheduled for 08/26/19 and we will fit and dispense an ankle brace at that visit. Objective Vital signs: Temp Pulse Resp BP Pulse Ox 98.6 F 77 17 130/74 98 08/19/19 20:00 08/19/19 20:00 08/19/19 20:00 08/19/19 20:00 08/19/19 20:00 Narrative: Patient is pleasant. Alert. Oriented x3. Oropharynx with poor dentition but clear. No JVD. Abdomen is soft. Some tenderness around incision site, incision site looks great. Lungs are clear bilaterally. Heart rate regular. Moves all extremities well. No distal perfusion problems. DS: Diagnosis - Discharge Diagnosis (1) SBO (small bowel obstruction) Status: Resolved (2) Seizure disorder Status: Chronic (3) Hypothyroidism Status: Chronic (4) Ankle fracture, right Status: Acute (5) Postoperative ileus Status: Resolved (6) Status post open reduction with internal fixation (ORIF) of fracture of ankle Status: Acute (7) Edema of right ankle Status: Acute (8) Closed bimalleolar fracture of right ankle with routine healing Status: Acute Discharge Plan - Patient Discharge Instructions ACTIVITY: Other (see Podiatry instructions) DIET: continue same diet Patient Instructions: Small Bowel Obstruction, DI for Small Bowel Obstruction, DI Following Your Exploratory Laparotomy, DI for Surgical Site Infection - Follow up Plan Follow up with: Thee Lux MD [Staff Physician] - 08/27/19 1:15 pm Stevo Beard [Primary Care Provider] - 08/27/19 9:30 am Kaylie Rivera DPM [Staff Physician] - 08/26/19 10:20 am Disposition: Home Health Service Home Medications: Home Medications Medication Instructions Recorded Confirmed Type Phenytoin Sodium Extended 100 mg PO DAILY 03/10/19 08/13/19 History [Dilantin 100mg Capsule] Ergocalciferol (Vitamin D2) 50,000 unit PO WEEKLY 07/13/19 08/13/19 History [Drisdol] Levothyroxine Sodium 150 mcg PO DAILY 08/13/19 08/13/19 History [Levothyroxine 150mcg (0.15mg) Tab] Phenytoin Sodium Extended 200 mg PO 1800 08/13/19 08/18/19 History [Dilantin 100mg Capsule] Prescriptions/Medication Reconciliation: Continued Phenytoin Sodium Extended [Dilantin 100mg Capsule] 100 mg PO DAILY Ergocalciferol (Vitamin D2) [Drisdol] 50,000 unit PO WEEKLY Levothyroxine Sodium [Levothyroxine 150mcg (0.15mg) Tab] 150 mcg PO DAILY Phenytoin Sodium Extended [Dilantin 100mg Capsule] 200 mg PO 1800 - Problem Reconciliation Problems Reviewed?: Yes
[2019-08-20 07:02] LABS: Basophils % 0.7 % (0.1-2.0); Eosinophils # 0.3 K/mm3 (0.0-0.4); Eosinophils % 5.1 % (0.1-12.0); Hematocrit 35.2 % (42.0-52.0); Hemoglobin 11.9 g/dL (14.1-18.0); Lymphocytes # 0.8 K/mm3 (0.7-4.5); Lymphocytes % 13.5 % (10-50); Mean Corpuscular HGB Conc 33.9 g/dL (31.8-35.4); Mean Corpuscular Volume 98.5 fl (80-94); Mean Platelet Volume 7.3 fl (7.4-10.4); Monocytes # 0.6 K/mm3 (0.1-1.0); Monocytes % 10.2 % (1.7-9.3); Neutrophils # 4.1 K/mm3 (1.8-7.8); Neutrophils % 70.5 % (37.0-80.0); Platelet Count 243 K/mm3 (142-424); Red Blood Count 3.58 M/mm3 (4.60-6.20); Red Cell Distribution Width 12.9 % (11.5-17.5); White Blood Count 5.9 K/mm3 (4.8-10.8)
[2019-08-20 07:05] LABS: Anion Gap 10.4 mEq/L (5-15)
[2019-08-20 07:06] LABS: Calcium 8.3 mg/dl (8.4-10.2)
--- NOTE | 2019-08-20 07:37 | Progress Note ---
Subjective Narrative: Patient doing quite well without complaints. Moving bowels. Tolerating bland diet. Exam Vital signs and Labs for Last 24 Hours: Temp Pulse Resp BP Pulse Ox 98.6 F 77 17 130/74 98 08/19/19 20:00 08/19/19 20:00 08/19/19 20:00 08/19/19 20:00 08/19/19 20:00 Laboratory Results - last 24 hr 08/20/19 06:45: WBC 5.9, RBC 3.58 L, Hgb 11.9 L, Hct 35.2 L, MCV 98.5 H, MCH 33.4 H, MCHC 33.9, RDW 12.9, Plt Count 243, MPV 7.3 L, Neut % (Auto) 70.5, Lymph % (Auto) 13.5, [place] % (Auto) 10.2 H, Eos % (Auto) 5.1, Baso % (Auto) 0.7, Neut # (Auto) 4.1, Lymph # (Auto) 0.8, [place] # (Auto) 0.6, Eos # (Auto) 0.3, Baso # (Auto) 0.0 08/20/19 06:45: Sodium 135 L, Potassium 3.4 L, Chloride 99, Carbon Dioxide 29, Anion Gap 10.4, BUN 3 L D, Creatinine 0.90, Estimated Creat Clear 65, Estimated GFR 85, Est GFR ( Amer) 103, Glucose 95, Calcium 8.3 L I & O for Last 24 hours: Intake & Output 08/17/19 08/18/19 08/19/19 08/20/19 11:59 11:59 11:59 11:59 Intake Total 3095 / 3095 3252 / 3252 2420 / 2420 680 / 680 Output Total 1055 / 1055 400 / 400 1100 / 1100 300 / 300 Balance 2040 / 2040 2852 / 2852 1320 / 1320 380 / 380 Weight 137 lb 7 oz 132 lb 2 oz 133 lb 7 oz 133 lb 6.992 oz - *Routine Abdominal Exam Present: soft Comments: Incision clean, intact Progress Note: A&P (1) SBO (small bowel obstruction) Status: Acute Current Visit: Yes (2) Seizure disorder Status: Acute Current Visit: Yes (3) Hypothyroidism Status: Acute Current Visit: Yes (4) Ankle fracture, right Status: Acute Current Visit: No (5) Postoperative ileus Status: Acute Current Visit: Yes (6) Status post open reduction with internal fixation (ORIF) of fracture of ankle Status: Acute Current Visit: Yes (7) Edema of right ankle Status: Acute Current Visit: Yes (8) Closed bimalleolar fracture of right ankle with routine healing Status: Acute Current Visit: Yes Assessment and Plan for All Diagnoses:: Discharge home today.
== END 2019-08-20 11:30 | disposition home health service (06) | DRG 337 ==
LOC: ER 05:41 → 2ND 08:19
PROVIDERS: ADMIT Internal Medicine Adolescent Medicine; ATTEND Internal Medicine Adolescent Medicine
CPT/HCPCS: 36415; 71010; 71045; 73610; 74019; 74020; 74177; 80048; 80053; 80074; 80076; 80185; 81001; 82150; 83036; 83690; 85025; 86703; 96365; 96375; 97110; 97116; 97161; 97530; 99285; G0432; J2405; Q9967

== ENCOUNTER 2019-09-30 13:00 | Outpatient (RCR) | payer OTHER, SELFPAY ==
--- NOTE | 2019-08-25 13:59 | HMH.PTOPEV ---
PT Outpatient Evaluation Rehab PT Outpatient Evaluation Start: 08/25/19 12:58 Freq: Status: Active Protocol: Document 08/25/19 13:32 CATRACHITAMARIA C (Rec: 08/25/19 13:59 AIDEN [id number]) Electronically Signed By Javy Cowart, PT 08/25/19 13:32 Outpatient Therapy Subjective History Subjective History Patient is a 64 year old male presenting to outpatient PT S/ P L tib/fib ORIF from injury occurring 07/06/19. This is a workmans comp case. Pt reports that he experienced a fall at work on [place] loading [place] resulting in LLE fracture . He most recently experienced a bowel obstruction and resection after L ankle ORIF. Pt presents to clinic in long CAM walker and L knee scooter. Comorbidities include hx of cancer. No pain to report. Chief Complaint Pain,Stiff,Swelling,Weakness Symptoms Aggravated By Physical Activity Prior Functional Limitations None Current Functional Limitations Standing,Walking,Stairs, Balance Level of pain today (0-10) 0 Pain scale - at its best (0-10) 0 Pain scale - at its worst (0-10) 0 Ankle/Foot Eval Palpation Tenderness left Ankle/Foot Palpation Findings Tenderness Ankle/Foot Palpation Overall Comment B incisions ROM Ankle/Foot Dorsiflexion w/Knee Extended 0 Passive Range (degrees) Ankle/Foot Plantar Flexion Passive Range 60 of Motion (degrees) Ankle/Foot Eversion Passive Range of 9 Motion (degrees) Ankle/Foot Inversion Passive Range of 20 Motion (degrees) Great Toe ROM Reason Not Measured Within Functional Limits MMT Ankle Dorsiflexion Strength Grade 4- Good- Ankle Plantarflexion Strength Grade 4- Good- Foot Eversion Strength Grade 3+ Fair+ Foot Inversion Strength Grade 3+ Fair+ Special Tests Ankle Anterior Drawer Test Negative Left Ankle Eversion Test Negative Left Talar Tilt Test Negative Left Foot Interdigital Neuroma Test Negative Left Outpatient Therapy Assessment Impairments Problems/Impairmments Palpation Tenderness,Impaired Range of Motion,Impaired Strength,Impaired Walking, Impaired Standing,Impaired Lifting,Impaired Shower/ Bathing,Impaired Household Care,Impaired Stair
== END 2019-09-30 13:05 | disposition home or self-care (01) ==
LOC: PT 13:00
PROVIDERS: PCP Internal Medicine; Visit Provider Podiatrist
DX: Z98.890 Other specified postprocedural states (principal); Z87.81 Personal history of (healed) traumatic fracture; S82.891D Other fracture of right lower leg, subsequent encounter for closed fracture with routine healing; S80.11XD Contusion of right lower leg, subsequent encounter
CPT/HCPCS: 97010; 97014; 97110; 97112; 97140; 97163; G0283

== ENCOUNTER → 2019-09-30 14:17 | Outpatient (CLI) | payer OTHER, SELFPAY ==
--- NOTE | 2019-09-30 14:20 | XR_ITS ---
PROCEDURE: XR ANKLE WT BEARING RT MIN 3V CLINICAL INDICATION: post-op Follow-up surgery COMPARISON: XR ANKLE RT MIN 3V from 07/06/2019 XR ANKLE RT 2V from 07/14/2019 XR ANKLE RT MIN 3V from 07/14/2019 XR ANKLE RT MIN 3V from 08/17/2019 FINDINGS: Medial lateral bone plates are once again noted at the distal tibia and fibula with translucent fixator present. The ankle mortise is preserved. No acute fracture or dislocation. Small calcific density is present the anterior distal tibia and could be due to an old avulsion injury. There are degenerative changes at the talonavicular joint IMPRESSION: Postsurgical changes with good alignment Dictated by: Bernard Bobby MD 09/30/2019 15:03 Electronically signed by Bernard Bobby MD in [facility] 09/30/2019 15:03
== END ==
PROVIDERS: PCP Internal Medicine; Visit Provider Podiatrist
DX: Z87.81 Personal history of (healed) traumatic fracture (principal); Z98.890 Other specified postprocedural states; S82.841D Displaced bimalleolar fracture of right lower leg, subsequent encounter for closed fracture with routine healing
CPT/HCPCS: 73610

== ENCOUNTER → 2020-03-13 10:48 | Outpatient (CLI) | payer OTHER, SELFPAY ==
[2020-03-13 11:43] LABS: Basophils # 0.1 K/mm3 (0-0.2); Basophils % 1.4 % (0.1-2.0); Eosinophils # 0.1 K/mm3 (0.0-0.4); Hematocrit 42.5 % (42.0-52.0); Hemoglobin 13.7 g/dL (14.1-18.0); Lymphocytes # 0.9 K/mm3 (0.7-4.5); Lymphocytes % 21.8 % (10-50); Mean Corpuscular HGB Conc 32.2 g/dL (31.8-35.4); Mean Corpuscular Hemoglobin 32.7 pg (27.0-31.2); Mean Corpuscular Volume 101.5 fl (80-94); Mean Platelet Volume 6.9 fl (7.4-10.4); Monocytes # 0.3 K/mm3 (0.1-1.0); Monocytes % 7.7 % (1.7-9.3); Neutrophils # 2.8 K/mm3 (1.8-7.8); Neutrophils % 67.1 % (37.0-80.0); Platelet Count 147 K/mm3 (142-424); Red Blood Count 4.18 M/mm3 (4.60-6.20); Red Cell Distribution Width 13.4 % (11.5-17.5); White Blood Count 4.2 K/mm3 (4.8-10.8)
[2020-03-13 12:33] LABS: Chloride 103 mmol/L (98-107); Potassium 5.5 mmoL/L (3.5-5.1); Sodium 138 mmol/L (136-145)
[2020-03-13 12:36] LABS: Alanine Aminotransferase 9 U/L (12-78); Albumin/Globulin Ratio 1.5 (1.1-1.8); Alkaline Phosphatase 94 U/L (38-126); Anion Gap 11.5 mEq/L (5-15); Aspartate Amino Transferase 21 U/L (17-59); Bilirubin,Total 0.4 mg/dl (0.2-1.3); Blood Urea Nitrogen 12 mg/dl (9-20); Carbon Dioxide 29 mmol/L (22.0-30.0); Estimated Glomerular Filt Rate 75 ml/min (>60); GFR (African American) 91 ML/MIN (>60); Globulin 2.6 g/dL (1.3-3.2); Total Protein,Serum 6.6 g/dl (6.3-8.2)
[2020-03-13 12:37] LABS: Calcium 9.2 mg/dl (8.4-10.2); Glucose 102 mg/dl (74-100)
[2020-03-13 12:52] LABS: 25-OH Vitamin D, Total 27.7 ng/mL (30-100)
[2020-03-13 13:15] LABS: Prostate Specific Ag, Diagnost 0.499 ng/ml (0.0-4.0)
[2020-03-13 15:02] LABS: Reticulocyte % (Auto) 0.6 % (0.9-3.2)
[2020-03-13 16:15] LABS: Folate 3.13 ng/mL
== END ==
PROVIDERS: Visit Provider Internal Medicine
DX: G40.802 Other epilepsy, not intractable, without status epilepticus (principal); E03.9 Hypothyroidism, unspecified; E55.9 Vitamin D deficiency, unspecified; R16.0 Hepatomegaly, not elsewhere classified; N40.1 Benign prostatic hyperplasia with lower urinary tract symptoms
CPT/HCPCS: 36415; 80053; 80185; 82306; 82746; 84153; 85025; 85044

== ENCOUNTER → 2020-09-06 12:53 | Outpatient (CLI) | payer OTHER, SELFPAY ==
[2020-09-06 13:35] LABS: Basophils # 0.1 K/mm3 (0-0.2); Basophils % 1.4 % (0.1-2.0); Eosinophils # 0.1 K/mm3 (0.0-0.4); Eosinophils % 2.8 % (0.1-12.0); Hematocrit 42.6 % (42.0-52.0); Lymphocytes # 1.3 K/mm3 (0.7-4.5); Lymphocytes % 33.2 % (10-50); Mean Corpuscular HGB Conc 32.9 g/dL (31.8-35.4); Mean Corpuscular Hemoglobin 32.6 pg (27.0-31.2); Mean Corpuscular Volume 99.2 fl (80-94); Mean Platelet Volume 7.2 fl (7.4-10.4); Monocytes # 0.4 K/mm3 (0.1-1.0); Monocytes % 11.3 % (1.7-9.3); Neutrophils % 51.3 % (37.0-80.0); Platelet Count 179 K/mm3 (142-424); Red Blood Count 4.29 M/mm3 (4.60-6.20); Red Cell Distribution Width 13.7 % (11.5-17.5); White Blood Count 3.8 K/mm3 (4.8-10.8)
[2020-09-06 14:09] LABS: Alanine Aminotransferase 11 U/L (12-78); Albumin Level 4.2 g/dl (3.5-5.0); Albumin/Globulin Ratio 1.7 (1.1-1.8); Alkaline Phosphatase 110 U/L (38-126); Anion Gap 8.4 mEq/L (5-15); Aspartate Amino Transferase 22 U/L (17-59); Bilirubin,Total 0.3 mg/dl (0.2-1.3); Blood Urea Nitrogen 9 mg/dl (9-20); Calcium 9.2 mg/dl (8.4-10.2); Carbon Dioxide 30 mmol/L (22.0-30.0); Chloride 102 mmol/L (98-107); Estimated Glomerular Filt Rate 85 ml/min (>60); GFR (African American) 103 ML/MIN (>60); Globulin 2.5 g/dL (1.3-3.2); Glucose 96 mg/dl (74-100); Potassium 4.4 mmoL/L (3.5-5.1); Sodium 136 mmol/L (136-145); Total Protein,Serum 6.7 g/dl (6.3-8.2)
[2020-09-06 14:15] LABS: Phenytoin (Dilantin) 20.5 ug/ml (10-20)
[2020-09-06 14:26] LABS: 25-OH Vitamin D, Total 36.8 ng/mL (30-100)
[2020-09-06 14:39] LABS: Thyroid Stimulating Hormone < 0.02 uIU/mL (0.465-4.68)
== END ==
PROVIDERS: Visit Provider Internal Medicine
DX: G40.802 Other epilepsy, not intractable, without status epilepticus (principal); E03.9 Hypothyroidism, unspecified; Z85.72 Personal history of non-Hodgkin lymphomas; R16.0 Hepatomegaly, not elsewhere classified
CPT/HCPCS: 36415; 80053; 80185; 82306; 84443; 85025

== ENCOUNTER → 2020-10-04 08:42 | Outpatient (CLI) | payer OTHER, SELFPAY ==
[2020-10-04 09:40] LABS: Phenytoin (Dilantin) 8.4 ug/ml (10-20)
== END ==
PROVIDERS: Visit Provider Internal Medicine
DX: G40.802 Other epilepsy, not intractable, without status epilepticus (principal)
CPT/HCPCS: 36415; 80185

== ENCOUNTER → 2020-10-16 14:29 | Outpatient (CLI) | payer OTHER, SELFPAY ==
[2020-10-16 14:36] LABS: Microscopic, Urine URINE MICROSCOPIC (MICROSCOPIC)
[2020-10-16 15:00] LABS: Appearance,Urine CLEAR (Clear); Bilirubin,Urine Negative (Negative); Blood, Urine Negative (Negative); Color,Urine STRAW (Yellow); Glucose,Urine (UA) Negative (Negative); Ketones,Urine Negative (Negative); Leukocyte Esterase,Urine Negative (Negative); Nitrate,Urine Negative (Negative); PH,Urine 6.5 (5.0-8.5); Protein,Urine Negative (Negative); Urobilinogen,Urine 0.2 EU/dl (0.2)
[2020-10-16 15:11] LABS: Amphetamine/Metha Screen,Urine Negative ng/ml (<1000)
[2020-10-16 15:12] LABS: Bacteria,Urine Trace /lpf; Barbiturates Screen,Urine Negative ng/ml (<200); Cannabinoid Screen,Urine Negative ng/ml (<50); RBC,Urine Occasional #/hpf (0-3); Squamous Epithelial Cell,Urine Occasional #/hpf (0-5); WBC,Urine Occasional #/hpf (0-3)
[2020-10-16 15:13] LABS: Cocaine Screen,Urine Negative ng/ml (<300)
[2020-10-16 15:14] LABS: Methadone Screen,Urine Negative ng/ml (<300); Phencyclidine Screen,Urine Negative ng/ml (<25)
[2020-10-16 15:15] LABS: Opiate Screen,Urine Negative ng/ml (<300)
[2020-10-16 15:19] LABS: Benzodiazepines Screen,Urine Negative ng/ml (<200)
--- NOTE | 2020-10-16 15:58 | CT_ITS ---
PROCEDURE: CT HEAD/BRAIN WO CON CLINICAL INDICATION: HEADACHES,ATAXIA COMPARISON: No exams were available for comparison TECHNIQUE: Axial images obtained. All CT scans at the facility use one or more dose reduction, viz: automated exposure control, ma/kV adjustment per patient size (including targeted exams where dose is matched to indication, i.e. head), or iterative reconstruction technique. FINDINGS: No midline shift, mass effect, intracranial hemorrhage, hydrocephalus, or extra-axial fluid collection is evident. There is generalized atrophy with hypoattenuation of the periventricular white matter consistent with microangiopathic changes. There has been prior left frontal craniotomy.. Small amount fluid density is present within the left mastoid sinus inferiorly. No sinus air-fluid level. IMPRESSION: No acute intracranial finding Dictated by: Bernard Bobby MD 10/16/2020 16:32 Bernard Bobby MD in [facility] 10/16/2020 16:32
[2020-10-16 16:08] LABS: Phenytoin (Dilantin) 13.8 ug/ml (10-20)
[2020-10-16 16:18] LABS: T4 (Thyroxine) 7.5 ug/dl (5.53-11.0)
[2020-10-16 16:31] LABS: Thyroid Stimulating Hormone 0.02 uIU/mL (0.465-4.68)
== END ==
PROVIDERS: Visit Provider Internal Medicine
DX: R51.9 Headache, unspecified (principal); R27.0 Ataxia, unspecified; G40.909 Epilepsy, unspecified, not intractable, without status epilepticus; R42 Dizziness and giddiness
CPT/HCPCS: 36415; 70450; 80185; 80305; 81001; 84436; 84443

== ENCOUNTER → 2021-07-10 18:54 | Outpatient (CLI) | payer MEDICARE, OTHER, SELFPAY ==
[2021-07-10 19:15] LABS: Basophils # 0.1 K/mm3 (0-0.2); Basophils % 2.5 % (0.1-2.0); Eosinophils # 0.2 K/mm3 (0.0-0.4); Eosinophils % 4.6 % (0.1-12.0); Hematocrit 46.1 % (42.0-52.0); Lymphocytes # 1.5 K/mm3 (0.7-4.5); Lymphocytes % 33.7 % (10-50); Mean Corpuscular HGB Conc 32.6 g/dL (31.8-35.4); Mean Corpuscular Hemoglobin 33.7 pg (27.0-31.2); Mean Corpuscular Volume 103.6 fl (80-94); Mean Platelet Volume 8.1 fl (7.4-10.4); Monocytes # 0.4 K/mm3 (0.1-1.0); Monocytes % 9.8 % (1.7-9.3); Neutrophils # 2.2 K/mm3 (1.8-7.8); Neutrophils % 49.4 % (37.0-80.0); Platelet Count 204 K/mm3 (142-424); Red Blood Count 4.45 M/mm3 (4.60-6.20); White Blood Count 4.4 K/mm3 (4.8-10.8)
[2021-07-10 20:36] LABS: Chloride 98 mmol/L (98-107); Sodium 134 mmol/L (136-145)
[2021-07-10 20:37] LABS: Potassium 4.1 mmoL/L (3.5-5.1)
[2021-07-10 20:39] LABS: Alanine Aminotransferase 15 U/L (12-78); Albumin Level 4.5 g/dl (3.5-5.0); Albumin/Globulin Ratio 1.7 (1.1-1.8); Alkaline Phosphatase 84 U/L (38-126); Anion Gap 11.1 mEq/L (5-15); Aspartate Amino Transferase 31 U/L (17-59); Bilirubin,Total 0.3 mg/dl (0.2-1.3); Blood Urea Nitrogen 11 mg/dl (9-20); Carbon Dioxide 29 mmol/L (22.0-30.0); Estimated Glomerular Filt Rate 85 ml/min (>60); GFR (African American) 102 ML/MIN (>60); Globulin 2.7 g/dL (1.3-3.2); Total Protein,Serum 7.2 g/dl (6.3-8.2)
[2021-07-10 20:40] LABS: Calcium 8.7 mg/dl (8.4-10.2); Glucose 81 mg/dl (74-100)
[2021-07-10 21:10] LABS: Thyroid Stimulating Hormone 8.92 uIU/mL (0.465-4.68)
[2021-07-10 21:53] LABS: Phenytoin (Dilantin) 19.5 ug/ml (10-20)
[2021-07-10 22:57] LABS: Vitamin B12 306 pg/mL (239-931)
[2021-07-10 23:09] LABS: Folate 3.17 ng/mL
== END ==
PROVIDERS: Visit Provider Internal Medicine
DX: G40.802 Other epilepsy, not intractable, without status epilepticus (principal); E03.9 Hypothyroidism, unspecified; R16.0 Hepatomegaly, not elsewhere classified; E55.9 Vitamin D deficiency, unspecified; Z85.72 Personal history of non-Hodgkin lymphomas
CPT/HCPCS: 80053; 80185; 82607; 82746; 84443; 85025

== ENCOUNTER → 2021-10-18 07:51 | Outpatient (CLI) | payer MEDICARE, OTHER, SELFPAY ==
[2021-10-18 09:50] LABS: Thyroid Stimulating Hormone 1.61 uIU/mL (0.465-4.68)
== END ==
PROVIDERS: PCP Internal Medicine; Visit Provider Internal Medicine
DX: E03.9 Hypothyroidism, unspecified (principal)
CPT/HCPCS: 36415; 84443

== ENCOUNTER 2021-11-12 13:26 | Emergency (ER) | payer MEDICARE, OTHER, SELFPAY ==
--- NOTE | 2021-11-12 13:34 | HMH.EDUTC ---
[facility] [place] Disposition Clinical Impression: Facial pain Sinusitis Qualifiers: Sinusitis location: unspecified location Chronicity: acute Recurrence: non-recurrent Qualified Code(s): J01.90 - Acute sinusitis, unspecified Disposition: Home, Self-Care Condition on Discharge: Good Instructions: Sinusitis Additional Instructions: Drink plenty of fluids. Take tylenol or ibuprofen for pain or fever. Take the medications as directed. Follow up with your regular doctor. GO TO THE ER FOR ANY WORSENING SYMPTOMS Prescriptions: Ibuprofen [Ibuprofen 600mg Tablet] 600 mg PO Q6HP PRN #30 tab PRN Reason: Mild Pain Transmission Status: Received by [id number] Amoxicillin [Amoxicillin 500mg Tab] 500 mg PO TID 10 Days #30 tab Transmission Status: Received by [id number] methylPREDNISolone [Medrol] 4 mg PO DIRECTED 6 Days #21 packet Transmission Status: Received by [id number] Referrals: Stevo Beard MD [Primary Care Provider] - Time of Disposition: 14:23 Medical Decision Making - Medical Records Medical records reviewed: No: I reviewed the patient's medical records. - Hira Inquiry Pt receiving controlled substance: No Vital Signs: 11/12/21 13:37 11/12/21 14:30 Temperature 97.5 F L 98.1 F Temperature Source Oral Pulse Rate 71 Pulse Rate [Left Radial] 71 Respiratory Rate 19 19 Blood Pressure 128/71 Blood Pressure [Right Arm] 128/71 Blood Pressure Mean [Right Arm] 90 02 Sat by Pulse Oximetry 100 - Lab Data Lab results reviewed: Yes: I reviewed the patient's lab results. [facility] [place] HPI - General Stated complaint: ear pain Time Seen by Provider: 11/12/21 13:34 - History of Present Illness Provider Complaint: He states that for the past 3 days he has had sinus congestion and a cough. - Related Data Home Medications Medication Instructions Recorded Confirmed Phenytoin Sodium Extended 100 mg PO DAILY 03/10/19 12/06/19 [Dilantin 100mg Capsule] Ergocalciferol (Vitamin D2) 50,000 unit PO WEEKLY 07/13/19 12/06/19 [Drisdol] Phenytoin Sodium Extended 200 mg PO 1800 08/13/19 12/06/19 [Dilantin 100mg Capsule] levothyroxine 150 mcg tablet 150 mcg PO tab 12/06/19 12/06/19 Previous Rx's Medication Instructions Recorded Amoxicillin [Amoxicillin 500mg Tab] 500 mg PO TID 10 Days #30 tab 11/12/21 Ibuprofen [Ibuprofen 600mg 600 mg PO Q6HP PRN #30 tab 11/12/21 Tablet] methylPREDNISolone [Medrol] 4 mg PO DIRECTED 6 Days #21 11/12/21 packet Allergies Allergy/AdvReac Type Severity Reaction Status Date / Time No Known Allergies Allergy Verified 11/12/21 13:42 [facility] History - Hepatitis A Screen Attestation statement:: This patient has been screened for Hepatitis A risk factors. I have reviewed the patient's past medical history: Yes Medical History: Reports:: Cancer, Seizures Denies:: Diabetes Mellitus Type 1, Diabetes Mellitus Type 2, Internal Pacemaker, MRSA Other Medical History: Reports: Chemotherapy, Hypothyroidism, Thyroid Disease, Other. Denies: Blood Transfusion Reaction Other Surgeries: Yes: Colonoscopy, Colon Resection. No: Pacemaker Amputation: No Fractures: Yes (Fractured collar bone, and fractured ribs 7 years ago ) Comment: Subdural hematoma. Right Hand Surgery. Right Ankle ORIF - Social History Smoking Status: Former smoker Tobacco Type: smokeless tobacco # Packs/Day (cigarettes): 0 Alcohol Intake: former Alcohol Intake Frequency:: holidays/special occasions only Substance Use Type: denies use Occupational Status: employed Housing: house Household Members: none Family Hx:: Cancer, Coronary Artery Disease, Heart Attack ROS Obtained: Yes All systems reviewed & no additional complaints - Constitutional Constitutional: Denies chills, Denies fever(s), Reports poor appetite, Reports malaise - Eyes Eyes: Denies eye discharge - ENT Ears, Nose, Mouth, and Throat: Reports as per HPI - Cardiovascular
[2021-11-12 13:37] VITALS: BP 128/71; PULSE 71; RESP 19; TEMP 36.4; O2SAT 100
[2021-11-12 14:30] VITALS: BP 128/71; PULSE 71; RESP 19; TEMP 36.7
== END 2021-11-12 14:30 | disposition home or self-care (01) ==
PROVIDERS: Emergency Provider Nurse Practitioner Family; PCP Internal Medicine
DX: J01.90 Acute sinusitis, unspecified (principal); R53.81 Other malaise; E03.9 Hypothyroidism, unspecified; G40.909 Epilepsy, unspecified, not intractable, without status epilepticus; Z79.1 Long term (current) use of non-steroidal anti-inflammatories (NSAID); Z79.52 Long term (current) use of systemic steroids; Z87.891 Personal history of nicotine dependence; Z85.9 Personal history of malignant neoplasm, unspecified; Z92.21 Personal history of antineoplastic chemotherapy; Z82.49 Family history of ischemic heart disease and other diseases of the circulatory system; Z80.9 Family history of malignant neoplasm, unspecified
CPT/HCPCS: 99213; G0463

== ENCOUNTER → 2022-04-05 11:04 | Outpatient (CLI) | payer MEDICARE, OTHER, SELFPAY ==
[2022-04-05 12:02] LABS: Basophils # 0.1 K/mm3 (0-0.2); Basophils % 2.3 % (0.1-2.0); Eosinophils # 0.2 K/mm3 (0.0-0.4); Eosinophils % 3.7 % (0.1-12.0); Hematocrit 44.8 % (42.0-52.0); Hemoglobin 14.5 g/dL (14.1-18.0); Lymphocytes # 1.6 K/mm3 (0.7-4.5); Lymphocytes % 34.8 % (10-50); Mean Corpuscular HGB Conc 32.4 g/dL (31.8-35.4); Mean Corpuscular Hemoglobin 33.2 pg (27.0-31.2); Mean Corpuscular Volume 102.3 fl (80-94); Mean Platelet Volume 7.6 fl (7.4-10.4); Monocytes # 0.6 K/mm3 (0.1-1.0); Monocytes % 12.3 % (1.7-9.3); Neutrophils # 2.1 K/mm3 (1.8-7.8); Platelet Count 179 K/mm3 (142-424); Red Blood Count 4.38 M/mm3 (4.60-6.20); Red Cell Distribution Width 12.9 % (11.5-17.5); White Blood Count 4.4 K/mm3 (4.8-10.8)
[2022-04-05 12:50] LABS: Alanine Aminotransferase 16 U/L (12-78); Albumin Level 3.8 g/dl (3.5-5.0); Albumin/Globulin Ratio 1.5 (1.1-1.8); Alkaline Phosphatase 142 U/L (38-126); Anion Gap 13.3 mEq/L (5-15); Aspartate Amino Transferase 25 U/L (17-59); Bilirubin,Total 0.2 mg/dl (0.2-1.3); Blood Urea Nitrogen 7 mg/dl (9-20); Calcium 8.5 mg/dl (8.4-10.2); Carbon Dioxide 29 mmol/L (22.0-30.0); Chloride 99 mmol/L (98-107); Chol/HDL Ratio 3.1 (1-3.5); Cholesterol 196 mg/dl (140-200); Estimated Glomerular Filt Rate 75 ml/min (>60); GFR (African American) 91 ML/MIN (>60); Globulin 2.6 g/dL (1.3-3.2); Glucose 90 mg/dl (74-100); HDL Cholesterol 64 mg/dl (40-60); Phenytoin (Dilantin) 12.7 ug/ml (10-20); Potassium 4.3 mmoL/L (3.5-5.1); Sodium 137 mmol/L (136-145); Total Protein,Serum 6.4 g/dl (6.3-8.2); Triglycerides 89 mg/dl (30-150); VLDL Cholesterol 18 mg/dL (0-40)
[2022-04-05 13:00] LABS: Direct LDL Cholesterol 100.88 mg/dL (100-129)
[2022-04-05 13:21] LABS: Prostate Specific Ag Screen 0.7 ng/ml (0.0-4.0)
== END ==
PROVIDERS: PCP Internal Medicine; Visit Provider Internal Medicine
DX: E03.9 Hypothyroidism, unspecified (principal); R16.0 Hepatomegaly, not elsewhere classified; G40.802 Other epilepsy, not intractable, without status epilepticus; N40.1 Benign prostatic hyperplasia with lower urinary tract symptoms; Z12.5 Encounter for screening for malignant neoplasm of prostate
CPT/HCPCS: 36415; 80053; 80061; 80185; 85025; G0103

== ENCOUNTER → 2022-10-04 10:13 | Outpatient (CLI) | payer MEDICARE, OTHER, SELFPAY ==
[2022-10-04 10:57] LABS: Basophils # 0.1 K/mm3 (0-0.2); Basophils % 1.3 % (0.1-2.0); Eosinophils # 0.1 K/mm3 (0.0-0.4); Eosinophils % 2.9 % (0.1-12.0); Hematocrit 44.2 % (42.0-52.0); Hemoglobin 14.4 g/dL (14.1-18.0); Lymphocytes # 1.2 K/mm3 (0.7-4.5); Mean Corpuscular HGB Conc 32.5 g/dL (31.8-35.4); Mean Corpuscular Hemoglobin 32.4 pg (27.0-31.2); Mean Corpuscular Volume 99.8 fl (80-94); Mean Platelet Volume 7.2 fl (7.4-10.4); Monocytes # 0.4 K/mm3 (0.1-1.0); Monocytes % 8.4 % (1.7-9.3); Neutrophils # 2.6 K/mm3 (1.8-7.8); Neutrophils % 60.4 % (37.0-80.0); Platelet Count 201 K/mm3 (142-424); Red Blood Count 4.43 M/mm3 (4.60-6.20); Red Cell Distribution Width 13.2 % (11.5-17.5); White Blood Count 4.3 K/mm3 (4.8-10.8)
[2022-10-04 11:12] LABS: Chloride 99 mmol/L (98-107); Potassium 4.5 mmoL/L (3.5-5.1); Sodium 134 mmol/L (136-145)
[2022-10-04 11:15] LABS: Alanine Aminotransferase 20 U/L (12-78); Albumin/Globulin Ratio 1.5 (1.1-1.8); Alkaline Phosphatase 110 U/L (38-126); Anion Gap 9.5 mEq/L (5-15); Aspartate Amino Transferase 25 U/L (17-59); Bilirubin,Total 0.3 mg/dl (0.2-1.3); Blood Urea Nitrogen 7 mg/dl (9-20); Calcium 8.4 mg/dl (8.4-10.2); Carbon Dioxide 30 mmol/L (22.0-30.0); Estimated Glomerular Filt Rate 75 ml/min (>60); GFR (African American) 90 ML/MIN (>60); Globulin 2.7 g/dL (1.3-3.2); Glucose 93 mg/dl (74-100); Magnesium 2.3 mg/dl (1.6-2.3); Total Protein,Serum 6.7 g/dl (6.3-8.2)
[2022-10-04 11:31] LABS: T4 (Thyroxine) 4.9 ug/dl (5.53-11.0)
[2022-10-04 11:35] LABS: Phenytoin (Dilantin) 29.4 ug/ml (10-20)
[2022-10-04 12:24] LABS: Vitamin B12 321 pg/mL (239-931)
[2022-10-04 12:49] LABS: Folate 2.77 ng/mL
== END ==
PROVIDERS: PCP Internal Medicine; Visit Provider Internal Medicine
DX: E03.9 Hypothyroidism, unspecified (principal); G40.802 Other epilepsy, not intractable, without status epilepticus; R25.2 Cramp and spasm; Z85.72 Personal history of non-Hodgkin lymphomas
CPT/HCPCS: 36415; 80053; 80185; 82607; 82746; 83735; 84436; 84443; 85025; J1642

== ENCOUNTER → 2022-12-13 11:05 | Outpatient (CLI) | payer MEDICARE, OTHER, SELFPAY ==
[2022-12-13 12:15] LABS: Thyroid Stimulating Hormone < 0.02 uIU/mL (0.465-4.68)
== END ==
PROVIDERS: PCP Internal Medicine; Visit Provider Internal Medicine
DX: E03.9 Hypothyroidism, unspecified (principal)
CPT/HCPCS: 36415; 84443

== ENCOUNTER 2023-01-07 08:38 | Day surgery (SDC) | payer MEDICARE, OTHER, SELFPAY ==
[2023-01-02 17:12] VITALS: BMI 20.5
[2023-01-07 09:33] VITALS: BP 124/75; PULSE 64; RESP 16; TEMP 36.6; O2SAT 99
[2023-01-07 10:30] VITALS: BP 114/64; PULSE 62; RESP 17; O2SAT 100
[2023-01-07 10:35] VITALS: BP 106/62; PULSE 61; RESP 16; O2SAT 99
[2023-01-07 10:40] VITALS: BP 117/64; PULSE 60; RESP 17; O2SAT 100
[2023-01-07 10:45] VITALS: BP 117/67; PULSE 58; RESP 16; O2SAT 100
[2023-01-07 10:47] VITALS: BP 132/78; PULSE 63; RESP 17; O2SAT 100
== END 2023-01-07 10:55 | disposition home or self-care (01) ==
PROVIDERS: PCP Internal Medicine; Visit Provider Ophthalmology
DX: H25.812 Combined forms of age-related cataract, left eye (principal)
CPT/HCPCS: 66984; V2632

== ENCOUNTER 2023-01-21 08:00 | Day surgery (SDC) | payer MEDICARE, OTHER, SELFPAY ==
[2023-01-17 16:50] VITALS: BMI 20.3
[2023-01-21] VITALS (8 sets, daily range): BP systolic 114–134; BP diastolic 66–78; PULSE 65–78; RESP 16–18; TEMP 36.7–36.8; O2SAT 98–100
== END 2023-01-21 11:05 | disposition home or self-care (01) ==
PROVIDERS: PCP Internal Medicine; Visit Provider Ophthalmology
DX: H25.811 Combined forms of age-related cataract, right eye (principal)
CPT/HCPCS: 66984; V2632

== ENCOUNTER → 2023-02-18 10:11 | Outpatient (POV) | payer MEDICARE, SELFPAY | PROVIDERS: Visit Provider Dermatology | DX: Z00.00 Encounter for general adult medical examination without abnormal findings (principal) ==

== ENCOUNTER 2023-08-29 07:20 | Emergency (ER) | payer OTHER, SELFPAY ==
[2023-08-29] VITALS (8 sets, daily range): BP systolic 127–153; BP diastolic 11–104; PULSE 69–97; RESP 15–16; TEMP 36.7; O2SAT 98–100; BMI 21.1
--- NOTE | 2023-08-29 08:35 | PC.NURSE ---
Rounded on patient, family member at bedside. no needs voiced at this time.
[2023-08-29] MEDS: TETANUS-DIPHTH TOXOID, ADULT 0.5ML SYR 0.5 ML IM (09:00)
--- NOTE | 2023-08-29 09:06 | ED_ITS ---
Discharge Plan Disposition Patient Disposition: Home, Self-Care Condition: Good Prescriptions Prescriptions: New clindamycin HCl 300 mg capsule 300 mg PO Q6H 10 Days Qty: 40 0RF No Action levothyroxine 150 mcg tablet 150 mcg PO DAILY Patient Comments: TAKE 1 TABLET BY MOUTH ONCE DAILY phenytoin sodium extended 100 MG capsule 200 mg PO 1800 phenytoin sodium extended 100 MG capsule 100 mg PO DAILY Referrals Follow up/Referrals: Stevo Beard MD [Primary Care Provider] - See instructions Activity Restrictions/Add. Instructions Additional Instructions/Restrictions: Please follow-up this week with your primary care provider for wound check. Please return with any new or worsening symptoms. I have prescribed antibiotics after a discussion of the risks and benefits. We have updated your tetanus. You have absorbable stitches that will need to be removed in approximately 10 to 14 days. Clinical Impressions Clinical Impression: Finger laceration Qualifiers: Encounter type: initial encounter Finger: middle finger Damage to nail status: without damage Foreign body presence: without foreign body Laterality: left Qualified Code(s): S61.213A - Laceration without foreign body of left middle finger without damage to nail, initial encounter Instructions Patient Instructions: DI for Laceration Repair Discharge ED Provider: Del Drake Adult HPI General Chief complaint: Wound/Laceration Stated complaint: Laceration to L middle finger Time Seen by Provider: 08/29/23 08:17 Mode of Arrival: Ambulatory Source of Information: Patient Limitations: No Limitations Description of Symptoms (Recalled from ER Triage Doc. by RN): patient present to ER with complaints that he was at work and reached in box that had broken glass in it and he cut his middle finger on left hand. Bleeding controlled upon arrival by patient holding pressure and gauze to area. History of Present Illness HPI narrative: Patient presents shortly after sustaining a laceration to nondominant middle finger of left hand on dorsal aspect of hand. This was sustained with glass that was not reportedly grossly contaminated. He denies any numbness or tingling. Is able to move his finger. No previous therapies. He is not up-to-date on tetanus. Denies any injury elsewhere. No loss of consciousness. Minimal blood loss. He describes pain overlying the laceration that is moderate in severity and nonradiating. No blood thinner usage Please note that above description of symptoms, in this electronic medical record under categorization of recalled from ER triage doctor by RN are reflective of an initial nursing assessment, however, is not reflective of my full history and physical exam that was personally taken and clarified. Conse quentially, this preceding description of symptoms, which may include the patient's categorized chief complaint in the EMR, do not reflect my personal clinical impression, and the ultimate description of history of present illness and patient stated complaints should be deferred to this section of the note. Unless stated otherwise or congruent with this section of the note, additional signs, symptoms, or incongruence should be interpreted as inaccurate with my clinical impression. Related Data Home Medications Medication Instructions Recorded Confirmed phenytoin sodium extended 100 mg 100 mg PO DAILY SEIZURE 03/10/19 08/29/23 capsule phenytoin sodium extended 100 mg 200 mg PO 1800 SEIZURES 08/13/19 08/29/23 capsule levothyroxine 150 mcg tablet 150 mcg PO DAILY hypothyroidism 12/06/19 08/29/23 Previous Rx's Medication Instructions Recorded clindamycin HCl 300 mg capsule 300 mg PO Q6H 10 days #40 caps 08/29/23 Allergies Allergy/AdvReac Type Severity Reaction Status Date / Time No Known Allergies Allergy Verified 01/21/23 08:38 [facility] Disclaimer: The information contained in this section may have been updated after the patient was seen, as this information can be updated by other users. Medical History (Updated 08/29/23 @ 09:01 by Del Drake MD) History of seizures Thyroid cancer Surgical History History of ankle surgery History of colon resection Family History Other Family history of cancer Social History Smoking Status: Never smoker alcohol intake: never substance use type: denies use current occupational status: employed and retired Travel in the last 8 weeks: None household members: none housing: house current occupation: [employer] ALot caffeine: Yes ROS Obtained: Yes Systems reviewed as appropriate & no additional complaints except as documented As per HPI Physical Exam General General appearance: alert and in no apparent distress Head Head exam: atraumatic and normocephalic Eye Eye exam: Present normal appearance Neck Neck exam: Present normal inspection Chest Chest inspection: Present normal inspection and symmetric chest wall rise Respiratory Respiratory exam: Present normal lung sounds bilaterally; Absent respiratory distress Cardiovascular Cardiovascular exam: Present regular rate and normal rhythm Extremities Exam Extremities exam: Present other (Partial avulsion of skin of dorsum of left middle finger, range of motion and sensation distally intact, upon exploration of wound no violation of tendon, no contamination, laceration overlies joint however no clinical evidence to suggest invasion of joint space.) Neurological Exam Neurological exam: Present alert and oriented X3 Psychiatric Psychiatric exam: Present normal affect and normal mood Skin Skin exam: Present warm and dry Medical Decision Making Medical Records Medical records reviewed: Yes I reviewed the patient's medical records. Hira Inquiry Pt receiving controlled substance: No Vital Signs: 08/29/23 07:22 08/29/23 07:31 08/29/23 07:33 Temperature 98.1 F Temperature Source Oral Pulse Rate 97 H 92 H Pulse Rate [Right] 96 H Respiratory Rate 16 Blood Pressure 153/11 H 127/90 Blood Pressure [Right Arm] 127/90 Blood Pressure Mean 102 Blood Pressure Mean [Right Arm] 102 Blood Pressure Source [Right Arm] Automatic Cuff 02 Sat by Pulse Oximetry 100 100 100 Oxygen Delivery Method Room Air Room Air Room Air 08/29/23 07:45 08/29/23 08:00 08/29/23 08:15 Temperature Temperature Source Pulse Rate 90 89 81 Pulse Rate [Right] Respiratory Rate Blood Pressure 146/93 H 130/99 H 145/95 H Blood Pressure [Right Arm] Blood Pressure Mean 110 103 104 Blood Pressure Mean [Right Arm] Blood Pressure Source [Right Arm] 02 Sat by Pulse Oximetry 100 99 98 Oxygen Delivery Method Room Air Room Air Room Air 08/29/23 08:30 08/29/23 09:13 Temperature 98.0 F Temperature Source Pulse Rate 78 69 Pulse Rate [Right] Respiratory Rate 15 Blood Pressure 148/104 H 131/90 Blood Pressure [Right Arm] Blood Pressure Mean 118 Blood Pressure Mean [Right Arm] Blood Pressure Source [Right Arm] 02 Sat by Pulse Oximetry 100 Oxygen Delivery Method Room Air Orders (Tests/Meds): ED MEDICATIONS Discontinued Medications Generic Name Dose Route Start Last Admin Trade Name Freq PRN Reason Stop Dose Admin Tetanus/Diphtheria Toxoids 0.5 ml 08/29/23 08:56 08/29/23 09:00 Tetanus-Diphth Toxoid, Adult 0.5ml Syr IM 08/29/23 08:57 0.5 ml .ONCE ONE Administration Medical Decision Narrative: Patient with history and exam per above presenting for evaluation of laceration over dorsum of left middle finger Diagnoses considered include laceration, foreign body, vascular injury, nerve injury, fracture, tendonous injury, tetanus exposure. Patient clinically has no evidence of tendinous injury, nerve injury, vascular injury, or associated fracture or foreign body to warrant further evaluation with imaging. Patient and family member at bedside are in agreement with this plan. Patient received digital block with 1% lidocaine without epinephrine, and laceration repair was performed with nonabsorbable sutures. He additionally received Tdap. Patient tolerated the procedure well. Bulky dressing was applied, and after shared decision making will receive course of antibiotics with very strict return precautions and outpatient follow-up expeditiously for wound check. I explained the risk, although no clinical evidence at this time to suggest invasion of joint space of complications involving laceration to hand and patient and family member at bedside understood these risks and will return with new or worsening symptoms as well as follow-up for wound check. I discussed my clinical impression with patient and answered all questions. At this time, the evidence for any other entities in the differential is insufficient to warrant any further testing or ED observation. This was explained to the patient. The patient was advised that persistent or worsening symptoms require further evaluation. I confirmed the patient's understanding of this discussion. Procedures Laceration Laceration 1: Site: finger Side (If applicable): left Size (cm): 2 Description: flap Depth: simple, single layer Local Anesthetic: lidocaine 1% Pre-repair: wound explored, irrigated extensively and deep structures intact Skin layer closed with: nylon Size (cm): 4-0 Number of sutures: 5 Technique: simple, interrupted Nerve Block Nerve Block 1: Time out performed: Yes Local Anesthetic: lidocaine 1% Amount of anesthesia used (mL): 3 Nerve Blocks: other (Digital) Procedure Successful: Yes Patient Tolerated Procedure: well Complications: none Critical Care Critical Care Time Critical Care Time: No
== END 2023-08-29 09:14 | disposition home or self-care (01) ==
PROVIDERS: Emergency Provider Emergency Medicine; PCP Internal Medicine
DX: S61.213A Laceration without foreign body of left middle finger without damage to nail, initial encounter (principal); W25.XXXA Contact with sharp glass, initial encounter; Z23 Encounter for immunization
CPT/HCPCS: 12001; 90471; 90714; 99283

== ENCOUNTER 2023-10-27 15:09 | Outpatient (CLI) | payer MEDICARE, SELFPAY ==
--- NOTE | 2023-10-27 15:16 | XR_ITS ---
FINAL REPORT CLINICAL HISTORY: LOWER BACK PAIN COMPARISON: None FINDINGS: LUMBOSACRAL SPINE SERIES Five views of the lumbosacral spine were obtained. There is a moderate T12 compression fracture of uncertain age. There is mild and moderate degenerative change. There is no malalignment. Rightward curvature of the lumbar spine is noted. IMPRESSION: Moderate T12 compression fracture of uncertain age. Degenerative changes. Reviewed, Interpreted and Dictated by Thee Alexander III, MD Transcribed by Rissa Fletcher Authenticated and [facility]
== END 2023-10-27 23:59 | disposition home or self-care (01) ==
LOC: RAD 15:11
PROVIDERS: PCP Internal Medicine; Visit Provider Internal Medicine
DX: S39.012A Strain of muscle, fascia and tendon of lower back, initial encounter
CPT/HCPCS: 72110

== ENCOUNTER 2023-11-17 14:53 | Outpatient (CLI) | payer MEDICARE, SELFPAY ==
--- NOTE | 2023-11-17 14:58 | CT_ITS ---
FINAL REPORT TECHNIQUE: Axial imaging of the lumbar spine was obtained without contrast. Reformatted images were also obtained and reviewed.This study was performed with techniques to keep radiation doses as low as reasonably achievable, (ALARA). Individualized dose reduction techniques using automated exposure control or adjustment of mA and/or kV according to the patient's size were employed. CLINICAL HISTORY: BACK PAIN FINDINGS: There is a moderate T12 burst fracture with 60% loss of anterior height. This may be acute or subacute. Findings are stable from prior exam from 10/27/2023. Findings may represent pathologic fracture. There is no lumbar fracture identified. Mild to moderate degenerative changes are seen with multilevel osteophytes. The remaining vertebra are normal height. There is no malalignment. Facets are properly aligned. Prevertebral soft tissues unremarkable. IMPRESSION: Moderate T12 burst fracture which may be acute or subacute. Findings represent pathologic fracture. No lumbar fracture. Reviewed, Interpreted and Dictated by Thee Alexander III, MD Transcribed by Rhonda López Authenticated and [facility]
== END 2023-11-17 23:59 | disposition home or self-care (01) ==
LOC: RAD 14:54
PROVIDERS: PCP Internal Medicine; Visit Provider Internal Medicine
DX: M54.9 Dorsalgia, unspecified (principal)
CPT/HCPCS: 72131

== ENCOUNTER 2023-12-31 14:44 | Outpatient (POV) | payer MEDICARE, SELFPAY ==
[2023-12-31 14:48] VITALS: BP 141/79; PULSE 73; RESP 18; O2SAT 98; BMI 19.2
--- NOTE | 2023-12-31 16:22 | EXP.PAIN.OV ---
HPI Data of Consult Patient: new to practice Consult date: 12/31/23 Requesting Physician: Nelida Urias APRN Primary Care Provider: Stevo Beard MD Consult Narrative Reason for consult: Mid back pain right-sided History of present illness: Mr. Lloyd is a 68 year old male who presents today as a new patient. He is a referral from Dr. Beard's office. Today he rates his pain a 5 out of 10. Patient states his pain is all at his mid back along the right side and describes it as a aching, throbbing sensation that does radiate in and around his right ribs going towards his chest. Patient does state that this has been going on since October unrelated to any specific trauma or injury. Patient states he has had lumbar issues in the past however this started and has progressively worsened since. Patient denies any prior surgical history or injection therapy. Patient states he did try and take [id number] medications such as Tylenol along with Advil, heat and ice and topicals with some relief. Patient does state he still currently takes Advil however the pain when it does occur is very severe. Patient states that he is currently in physical therapy and it is helping some however the current pain is interfering with his ability perform activities of daily living such as cooking and cleaning. Patient is interested in any help we may be able to provide. His Hira has been reviewed and is appropriate. CC: Nelida Urias APRN [facility] Disclaimer: The information contained in this section may have been updated after the patient was seen, as this information can be updated by other users. Medical History (Updated 12/31/23 @ 16:26 by Nelida Urias APRN) History of seizures Thyroid cancer Surgical History History of ankle surgery History of colon resection Family History Other Family history of cancer Social History (Updated 12/31/23 @ 15:22 by Yaz Gamble RN) Smoking Status: Never smoker alcohol intake: never substance use type: denies use current occupational status: other Travel in the last 8 weeks: None household members: none housing: house current occupation: [employer] caffeine: Yes Review of Systems Review of Systems Review of systems:: pertinent systems reviewed and negative unless documented below Review of systems (narrative): Review of Systems: General: No recent weight changes, no fever, no sleep disturbances Respiratory: No cough, no shortness of air, no recurring pulmonary infections Cardiovascular/peripheral vascular: No chest pain, no palpitations, no edema, no shortness of breath Gastrointestinal: No new onset incontinence, normal bowel movements reported Genitourinary: No new onset incontinence Musculoskeletal: Mid back pain right-sided right rib pain Psychiatric: [Normal mood/affect] Neurological: [Denies weakness in extremities], [denies balance issues] Meds Home Medications and Allergies Home Medications Medication Instructions Recorded Confirmed Type phenytoin sodium extended 100 mg 100 mg PO BID SEIZURE 03/10/19 12/31/23 History capsule levothyroxine 150 mcg tablet 150 mcg PO DAILY hypothyroidism 12/06/19 12/31/23 History New Prescriptions to Start Prescriptions: Allergies Allergy/AdvReac Type Severity Reaction Status Date / Time No Known Allergies Allergy Verified 01/21/23 08:38 Objective Vital signs: Pulse Resp BP Pulse Ox O2 Del Method 73 18 141/79 H 98 Room Air 12/31/23 14:48 12/31/23 14:48 12/31/23 14:48 12/31/23 14:48 12/31/23 14:48 Narrative: Physical Exam: General: Alert and oriented x3, no acute distress, pleasant and cooperative Lungs: Respirations even and unlabored, symmetrical chest expansion Eyes: PERRL Musculoskeletal: Flexion and extension of thoracic [spine] somewhat guarded secondary to pain, [antalgic gait noted] point tenderness around right thoracic paraspinous muscles Neurological: Speech clear, no gross sensory deficit Additional findings Additional findings: FINDINGS: There is a moderate T12 burst fracture with 60% loss of anterior height. This may be acute or subacute. Findings are stable from prior exam from 10/27/2023. Findings may represent pathologic fracture. There is no lumbar fracture identified. Mild to moderate degenerative changes are seen with multilevel osteophytes. The remaining vertebra are normal height. There is no malalignment. Facets are properly aligned. Prevertebral soft tissues unremarkable. IMPRESSION: Moderate T12 burst fracture which may be acute or subacute. Findings represent pathologic fracture. No lumbar fracture. Reviewed, Interpreted and Dictated by Thee Alexander III, MD Transcribed by Rhonda López Authenticated and [facility] Assessment and Plan *Assessment and plan (1) Mid back pain on right side: Status: Acute Category: Medical Code(s): M54.9 - Dorsalgia, unspecified (2) Myofascial pain: Status: Acute Category: Medical Code(s): M79.18 - Myalgia, other site (3) Burst fracture of T12 vertebra: Status: Acute Category: Medical Code(s): S22.081A - Stable burst fracture of T11-T12 vertebra, initial encounter for closed fracture (4) Degenerative disc disease, thoracic: Status: Acute Category: Medical Code(s): M51.34 - Other intervertebral disc degeneration, thoracic region (5) Thoracic radiculopathy: Status: Acute Category: Medical Code(s): M54.14 - Radiculopathy, thoracic region Plan Patient is experiencing significant pain related to a burst fracture at the T12 vertebra. Patient did have limited range of motion of his thoracic spine and point tenderness along his right thoracic paraspinous muscles. I did review over the lumbar CT showing the T12 burst fracture that had 60% loss of height. I have counseled the patient that unfortunately this is a fracture that we treated conservatively by doing injection therapy. Due to the nature of the fracture we are not able to offer surgical intervention such as a kyphoplasty. Patient and do acknowledge understanding. I have gone over the risk and benefits of a thoracic epidural steroid injection. Patient and would like to proceed forward with this option. Patient is not on any blood thinners. I will also order the patient contacted cream. Patient has tried and failed conservative therapies such as oral medication, heat and ice, topicals, current physical therapy and continued at home exercising and stretching. We will submit to insurance for a thoracic epidural steroid injection T12 under fluoroscopy. Patient has been instructed to contact the clinic with any concerns before the next appointment. Dr. Bronson has reviewed this note and agrees with this plan of care. This note was dictated using voice recognition software and make contain errors or omissions.
== END 2023-12-31 23:59 | disposition home or self-care (01) ==
LOC: SC.PAIN 14:45
PROVIDERS: PCP Internal Medicine; Visit Provider Nurse Practitioner Family
DX: M54.9 Dorsalgia, unspecified (principal); S22.081A Stable burst fracture of T11-T12 vertebra, initial encounter for closed fracture; M51.34 Other intervertebral disc degeneration, thoracic region; M54.14 Radiculopathy, thoracic region
CPT/HCPCS: 99202; G0463

== ENCOUNTER 2024-01-01 16:00 | Outpatient (RCR) | payer MEDICARE, SELFPAY ==
--- NOTE | 2023-11-12 15:46 | HMH.PTOPEV ---
PT Outpatient Evaluation Rehab PT Outpatient Evaluation Start: 11/12/23 15:11 Freq: Status: Active Protocol: Document 11/12/23 15:11 AIDEN (Rec: 11/12/23 15:46 AIDEN [id number]) E-signed By Javy Cowart, PT Outpatient Therapy Subjective History Subjective History Patient is a 68 year old male presenting to outpatient PT with reports of intermittent LBP without radicular symptoms . Symptoms of insidious onset starting approx 1 month ago. Most recent imaging indicates possible T 12 compression fracture and degenerative changes. Comorbidities include hx of subdural hematoma, epilepsy, hx of thyroid cancer, B hand sx and R ankle sx. New diagnosis of cancer in past 12 No months? Chief Complaint Pain,Stiff Symptom Type Ache Symptoms Relieved By Rest/Positioning,Heat, Prescription Meds Symptoms Aggravated By Standing,Bending/Stooping, Physical Activity,Lifting Prior Functional Limitations None Current Functional Limitations Lifting,Housework,Standing, Walking,Bending/Stooping Symptom Description Intermittent Level of pain today (0-10) 0 Pain scale - at its best (0-10) 0 Pain scale - at its worst (0-10) 8 Lumbopelvic Eval Posture Thoracic Spine Posture Standing Position Increased Kyphosis Lumbar Spine Posture Standing Position Decreased Lordosis Gait Observation General Gait Pattern Observation No Deviations/Normal Palapation tenderness right Lumbar/Sacral Palpation Findings Tenderness Lumbar/Sacral Palpation Overall Comment R SIJ 3/4 Accessory Movement L5 right S1 right Range of Motion Lumbar Spine Active Flexion Range of 58 Motion (degrees) Lumbar Spine Active Extension Range of 12 Motion (degrees) Left Lumbar Spine Lateral Flexion Active 9 Range of Motion (degrees) Right Lumbar Spine Lateral Flexion 11 Active Range of Motion (degrees) Lumbar Spine ROM Limitations Soft Tissue Tightness,Bony Restriction Manual Muscle Test Bilateral Knee Extension Strength Grade 4 Good Knee Flexion Strength Grade 4 Good Hip Flexion Strength Grade 4 Good Hip Abduction Strength Grade 4 Good Hip Adduction Strength Grade 4 Good Hip External Rotation Strength Grade 4 Good Hip Internal Rotation Strength Grade 4 Good Hip Extension Strength Grade 4 Good Gluteus Jose Strength Grade 4- Good- Ankle Dorsiflexion Strength Grade 4 Good Gastronemius/Soleus Strength Grade 4 Good Special Tests Hip Tarun (ARACELI) Test Positive Left,Positive Right Hip Lorena Test Positive Left,Positive Right Hip Piriformis Test Positive Left,Positive Right Joaquin Test Positive Sacroiliac Joint Distraction Test Negative Left Lumbar Spine Lyn Test Negative Left,Negative Right Oswestry Index Section 1 Pain Intensity The pain comes and goes and is severe Section 2 Personal Care (Washing,Dresing) change my way of washing or dressing in order to avoid pain Section 3 Lifting I can lift heavy weights, but it gives me extra pain Section 4 Walking I have no pain when walking Section 5 Sitting Pain prevents me from sitting for more than 10 minutes Section 6 Standing I have some pain on standing, but it does not increase with time Section 7 Sleeping I get no pain in bed Section 8 Social Life My social life is normal and gives me no extra pain Section 9 Traveling I get no pain when traveling Section 10 Changing Degreee of Pain My pain is rapidly getting worse Score and Risk Level Oswestry Sc 15 Oswestry Risk Level Moderate Disability Outpatient Therapy Assessment Impairments Problems/Impairmments Palpation Tenderness,Impaired Range of Motion,Impaired Strength,Impaired Walking, Impaired Standing,Impaired Bending,Impaired Balance, Subjective C/O Pain Prognosis Rehab Potential Good Clinical Impression Consistent with Diagnosis Yes Short Term Goals Number of Weeks 2 Decrease Subjective C/O Pain Yes: 10 at worst Patient to be Ind w/ HEP Yes Senior Care Goals Number of Weeks 4-6 Decreased Palpation Tenderness Yes: 1/4 Increase Range of Motion Yes: WNL Increase Strength Yes: 10/18 with core stabilizers plank/side plank/bridge Increase Ability to Walk Yes: 1 hr without difficulty Increase Ability to Stand Yes: Improve Ability For Household Care Yes Decrease Subjective C/O Pain Yes: 10 at worst Patient to be Ind w/ HEP Yes Outpatient Therapy Plan of Care Treatment Plan May Include Therapeutic Exercise Including Home Yes Exercise Program Manual Therapy Techniques Yes Neuromuscular Re-education Yes Therapeutic Activities to Return to Yes Previous Functional/Work Level Gait Training Yes ADL/Self Care Education Yes Mechanical Traction Yes Dry Needling Yes Thermal Modalities Yes Electrical Stimulation Yes Ultrasound/Phonophoresis Yes Iontophoresis Yes Orthotics/Bracing/Splinting Yes Massage Yes Eval/Re-Eval Yes Frequency Times per week 2 Duration Number of Weeks 4-6 Addendums This patient is a candidate for social No or vocational rehab? Patient/Guardian verbally acknowledges Yes understanding of treatment program and consents to further treatment? Patient/Guardian verbally acknowledges Yes understanding of diagnosis, prognosis and goals for treatment? Shoulder/Elbow Eval Shoulder Objective Measurements Elbow Objective Measurements PHYSICIAN CERTIFICATION: I certify the specified therapy services for Ernesto Royce Lloyd are required, authorized, and reviewed every 30 days.
--- NOTE | 2023-12-30 18:05 | HMH.RHREAS ---
Rehab Reassessment Rehab OP Re-assessment Start: 11/12/23 15:11 Freq: Status: Active Protocol: Document 12/30/23 17:57 ALIREZA (Rec: 12/30/23 18:04 PHORNE [id number]) E-signed By Nikolay Salcedo, PT Oswestry Index Section 1 Pain Intensity The pain is moderate and does not vary much Section 2 Personal Care (Washing,Dresing) my way of washing or dressing even though it causes some pain Section 3 Lifting lifting heavy weights off the floor, but I can manage light to medium Section 4 Walking I have some pain when walking but it does not increase with distance Section 5 Sitting I can sit in any chair for as long as I like Section 6 Standing I have some pain on standing, but it does not increase with time Section 7 Sleeping I get no pain in bed Section 8 Social Life My social life is normal and gives me no extra pain Section 9 Traveling I get no pain when traveling Section 10 Changing Degreee of Pain My pain is getting better Score and Risk Level Oswestry Sc 10 Oswestry Risk Level Mild Disability Rehab Re-assessment Subjective Subjective Pt reports 6/10 R sided low back pain upon arrival. Pt reports compliance with HEP. I just can't stand and walk as long as I want to without hurting. I think I'm a little better though Objective Objective Notes MMT B LE: grossly 5/5 throughout. AROM Lumbar spine (in deg) FLEX= 0-45, EXT= 0-20, R SB= 0 -15, L SB= 0-15. TTP: 1/4 R side lumbar paraspinals. Pain this date 610. Oswestry: 10 this date vs 15 on IE. Assessment Progress Assessment Progressing as Expected Assessment Notes Pt has shown significant improvements in B LE strength and lumbar AROM. He continues to have pain that is worse with standing activities and lifting. He continues to need skilled therapy to return to PLOF. Patient goals met ST/2 LT/8 Plan Plan Continue per initial POC. Frequency of Therapy 1-2 x/wk Duration of therapy 4 wks Time and Billing Re-Eval Time 10 Re-Eval Billing Units 0 PHYSICIAN CERTIFICATION: I certify the specified therapy services for Ernestopriya Crane Lloyd are required, authorized, and reviewed every 30 days.
== END 2024-01-01 17:10 | disposition home or self-care (01) ==
LOC: PT 16:00
PROVIDERS: Visit Provider Internal Medicine
DX: M54.50 Low back pain, unspecified (principal)
CPT/HCPCS: 97010; 97014; 97110; 97163; 97164; 97530; G0283

== ENCOUNTER 2024-01-13 07:47 | Day surgery (SDC) | payer MEDICARE, SELFPAY ==
[2024-01-13 08:11] VITALS: BP 144/73; PULSE 71; RESP 16; TEMP 36.6; O2SAT 99; BMI 19.8
[2024-01-13] MEDS: methylPREDNISolone ACETATE 80MG/ML VIAL 80 MG (08:35)
[2024-01-13 08:36] VITALS: BP 146/74; PULSE 75; RESP 18; O2SAT 99
[2024-01-13 08:37] VITALS: BP 137/77; PULSE 71; RESP 16; O2SAT 99
--- NOTE | 2024-01-13 08:37 | EXP.PAIN.PRO ---
Procedure Date: 01/13/24 Time: 08:20 Anesthesiologist:: Tarun Rivera CRNA Complications:: None Pre-procedure Diagnosis:: T12 burst fracture. Thoracic radiculopathy. Post-procedure Diagnosis:: Same. Indications for Procedure:: Patient is a pleasant 68-year-old male comes our clinic today for T12 epidural steroid injection. Patient has moderate sized T12 burst fracture with 60% loss of anterior height. He reports thoracic back pain with bilateral radiculopathy. Procedure Details:: Procedure:Thoracic epidural steroid injection under fluoroscopy Informed consent was obtained and the risks and benefits of the procedure were explained to the patient. The patient was taken to the procedure room and noninvasive monitors placed, including noninvasive blood pressure cuff and pulse oximeter. The back was viewed using C-Arm fluoroscopy and prepped using Betadine as a cleansing solution and the T12 interspace was palpated. Skin and subcutaneous tissues were anesthetized using lidocaine 1.5% and a 25-gauge needle. After this, an 18-gauge Touhy epidural needle was placed into the T12 interspace and advanced using fluoroscopic guidance and loss of resistance to air until the epidural space was encountered. After confirmation of needle placement in the epidural space, with dye, a solution containing lidocaine 1.5%, 4 mL and Depo-Medrol 80 mg were incrementally injected into the thoracic epidural space. The patient tolerated the procedure well with no complications. The patient was observed in the Pain Clinic and then discharged home neurologically intact. Plan and Disposition:: Patient was discharged without incident.
[2024-01-13 08:38] VITALS: BP 146/74; PULSE 75; RESP 18; O2SAT 99
== END 2024-01-13 08:37 | disposition home or self-care (01) ==
PROVIDERS: PCP Internal Medicine; Visit Provider Nurse Anesthetist, Certified Registered
DX: M54.14 Radiculopathy, thoracic region (principal)
CPT/HCPCS: 62321; J1010

== ENCOUNTER 2024-02-02 09:58 | Outpatient (POV) | payer MEDICARE, SELFPAY ==
[2024-02-02 10:11] VITALS: BP 129/72; PULSE 74; RESP 16; O2SAT 100; BMI 19.2
--- NOTE | 2024-02-02 10:26 | EXP.PAIN.SOA ---
[facility] Disclaimer: The information contained in this section may have been updated after the patient was seen, as this information can be updated by other users. Medical History History of seizures Thyroid cancer Surgical History History of ankle surgery History of colon resection Family History Other Family history of cancer Social History Smoking Status: Never smoker alcohol intake: never substance use type: denies use current occupational status: retired Travel in the last 8 weeks: None household members: none housing: house current occupation: [employer] caffeine: Yes PM Subjective & Objective Subjective Subjective:: Patient is a pleasant 68-year-old male who presents today for follow-up of thoracic epidural steroid injection of T12 on 01/13/2024. Patient rates his pain today a 2 out of 10. Patient denies any new trauma or injury. He does state that he had at least 75% relief following this injection and feels like it still helping. Patient does state that he seems to have 1 area that still giving him some problems along the right-hand side of his mid back however it is very manageable. His Hira has been reviewed and is appropriate. Review of Systems: General: No recent weight changes, no fever, no sleep disturbances Respiratory: No cough, no shortness of air, no recurring pulmonary infections Cardiovascular/peripheral vascular: No chest pain, no palpitations, no edema, no shortness of breath Gastrointestinal: No new onset incontinence, normal bowel movements reported Genitourinary: No new onset incontinence Musculoskeletal: Mid back pain Psychiatric: [Normal mood/affect] Neurological: [Denies weakness in extremities], [denies balance issues] Pain at rest (0-10 scale): 2 Objective Objective:: Physical Exam: General: Alert and oriented x3, no acute distress, pleasant and cooperative Lungs: Respirations even and unlabored, symmetrical chest expansion Eyes: PERRL Musculoskeletal: Flexion and extension of thoracic [spine] somewhat guarded secondary to pain, [antalgic gait noted] Neurological: Speech clear, no gross sensory deficit Has patient had previous pain injection?: Yes Percent improvement in pain since last injection: 75% Conservative treatment options previously tried: Home exercise plan Length of treatment: Longer than 6 weeks Meds Home Medications and Allergies Home Medications ?Medication ?Instructions ?Recorded ?Confirmed ?Type phenytoin sodium extended 100 mg 100 mg PO BID SEIZURE 03/10/19 02/02/24 History capsule levothyroxine 150 mcg tablet 150 mcg PO DAILY hypothyroidism 12/06/19 02/02/24 History New Prescriptions to Start Prescriptions: Allergies Allergy/AdvReac Type Severity Reaction Status Date / Time No Known Allergies Allergy Verified 01/13/24 08:12 Assessment and Plan *Assessment and plan (1) Thoracic radiculopathy: Status: Acute Category: Medical Code(s): M54.14 - Radiculopathy, thoracic region (2) Degenerative disc disease, thoracic: Status: Acute Category: Medical Code(s): M51.34 - Other intervertebral disc degeneration, thoracic region Plan Patient had significant improvement following this injection and does not require any additional injection therapy at this time. Patient will return to clinic in 1 month for reevaluation of symptoms and plan of care. Patient has been instructed to contact the clinic with any concerns before the next appointment. Dr. Bronson has reviewed this note and agrees with this plan of care. This note was dictated using voice recognition software and make contain errors or omissions. All injections are used with Lidocaine or Bupivacaine and Depo Medrol.
== END 2024-02-02 23:59 | disposition home or self-care (01) ==
LOC: SC.PAIN 09:59
PROVIDERS: PCP Internal Medicine; Visit Provider Nurse Practitioner Family
DX: M51.14 Intervertebral disc disorders with radiculopathy, thoracic region (principal)
CPT/HCPCS: 99212; G0463

== ENCOUNTER 2024-03-02 12:53 | Emergency (ER) | payer MEDICARE, SELFPAY ==
[2024-03-02 13:17] VITALS: BP 132/85; PULSE 89; RESP 16; TEMP 36.4; O2SAT 98; BMI 19.2
--- NOTE | 2024-03-02 13:22 | EXP.UTC ---
Discharge Plan Disposition Patient Disposition: Home, Self-Care Condition: Good Prescriptions Prescriptions: New ciprofloxacin-dexamethasone 0.3-0.1 % Drops,Suspension 2 drp Ear-Right BID 7 Days Qty: 1 0RF No Action levothyroxine 150 mcg tablet 150 mcg PO DAILY Patient Comments: TAKE 1 TABLET BY MOUTH ONCE DAILY phenytoin sodium extended 100 MG capsule 100 mg PO BID Referrals Follow up/Referrals: Stevo Beard MD [Primary Care Provider] - See instructions Activity Restrictions/Add. Instructions Additional Instructions/Restrictions: Use the ear drops as directed. Follow up with your primary care physician. GO TO THE ER FOR ANY WORSENING SYMPTOMS Clinical Impressions Clinical Impression: Right ear impacted cerumen, External otitis of right ear Instructions Patient Instructions: How to Instill Ear Drops, DI for Cerumen Impaction, DI for Otitis Externa Print Language Print Language: Bel[place]ian Discharge ED Provider: [place] [facility] [place] General Stated complaint: diff hearing Mode of Arrival: Ambulatory Source of Information: Patient Limitations: No Limitations Time Seen by Provider: 03/02/24 13:22 Description of Symptoms (Recalled from Triage Doc. by RN): Patient reports difficulty hearing out of his right ear. HEENT Symptoms (Recalled from RN notes): Yes Resp Symptoms (Recalled from RN notes): No Skin Symptoms (Recalled from RN notes): No MS Symptoms (Recalled from RN notes): No Functional Status (Recalled from RN notes): wnl History of Present Illness Provider Complaint: He states that for the past 3 days he has had decreased hearing in his right ear. He has had issues with impacted cerumen in the past. Related Data Home Medications ?Medication ?Instructions ?Recorded ?Confirmed phenytoin sodium extended 100 mg 100 mg PO BID SEIZURE 03/10/19 02/02/24 capsule levothyroxine 150 mcg tablet 150 mcg PO DAILY hypothyroidism 12/06/19 02/02/24 Previous Rx's ?Medication ?Instructions ?Recorded ciprofloxacin 0.3 %-dexamethasone 2 drp Ear-Right BID 7 days #1 ea 03/02/24 0.1 % ear drops,suspension Allergies Allergy/AdvReac Type Severity Reaction Status Date / Time No Known Allergies Allergy Verified 01/13/24 08:12 Worker's Comp Is this a Worker's Comp case?: No [facility] Disclaimer: The information contained in this section may have been updated after the patient was seen, as this information can be updated by other users. Medical History (Updated 03/02/24 @ 14:06 by Kirk Amos APRN) History of seizures Thyroid cancer Surgical History History of ankle surgery History of colon resection Family History Other Family history of cancer Social History Smoking Status: Never smoker alcohol intake: never substance use type: denies use current occupational status: retired Travel in the last 8 weeks: None household members: none housing: house current occupation: [employer] caffeine: Yes ROS Obtained: Yes All systems reviewed & no additional complaints except as documented Constitutional Constitutional: Denies chills and Denies fever(s) Eyes Eyes: Denies eye discharge ENT Ears, Nose, Mouth, and Throat: Reports as per HPI, Denies dizziness, Denies otalgia and Denies sore throat Cardiovascular Cardiovascular: Denies chest pain Respiratory Respiratory: Denies shortness of breath, Denies chest congestion, Denies cough, Denies stridor and Denies wheezing Gastrointestinal Gastrointestingal: Denies nausea or vomiting Musculoskeletal Musculoskeletal: Reports system reviewed and no additional complaints, except as documented and Denies arthralgias Integumentary/Breasts Skin/Breast: Denies rash Neurologic Neurologic: Denies dizziness and Denies paresthesias Allergic/Immunologic Allergic/Immunologic: Denies wheezing Physical Exam General General appearance: alert and in no apparent distress Head Head exam: atraumatic, normocephalic and normal inspection Eye Eye exam: Present normal appearance, PERRL and EOMI ENT ENT exam: Present normal oropharynx, mucous membranes moist, TM's normal bilaterally and normal external ear exam Expanded ENT Exam TM/Canal exam: Right TM: cerumen impaction Nose exam: Absent sinus tenderness Nasal speculum exam: Bilateral: normal Mouth exam: Present normal external inspection; Absent drooling Teeth exam: Present normal inspection Throat exam: Present normal inspection Neck Neck exam: Present normal inspection, full ROM and trachea midline; Absent meningismus or lymphadenopathy Chest Chest inspection: Present normal inspection and symmetric chest wall rise; Absent tenderness Respiratory Respiratory exam: Present normal lung sounds bilaterally; Absent respiratory distress Cardiovascular Cardiovascular exam: Present regular rate and normal rhythm; Absent JVD Abdominal Exam Abdominal exam: Present soft and normal bowel sounds; Absent distention, tenderness or guarding Extremities Exam Extremities exam: Present normal inspection, full ROM and normal capillary refill; Absent calf tenderness Back Exam Back exam: Present normal inspection; Absent tenderness Neurological Exam Neurological exam: Present alert and oriented X3 Psychiatric Psychiatric exam: Present normal affect and normal mood Skin Skin exam: Present warm, dry, intact and normal color Lymphatic Lymphatic Findings: no adenopathy Medical Decision Making Medical Records Medical records reviewed: No I reviewed the patient's medical records. Screening: Per USPSTF and CDC recommendations, given the prevalence of disease in our region, it is our hospital?s policy to screen for HIV and viral Hepatitis for all patients aged 18 and over and those with ongoing risk factors. Hira Inquiry Pt receiving controlled substance: No Vital Signs: 03/02/24 13:17 Temperature 97.6 F Temperature Source Oral Pulse Rate [Radial] 89 Respiratory Rate 16 Blood Pressure [Right Arm] 132/85 Blood Pressure Mean [Right Arm] 100 Blood Pressure Source [Right Arm] Automatic Cuff Blood Pressure Position [Right Arm] Sitting 02 Sat by Pulse Oximetry 98 Oxygen Delivery Method Room Air Procedures Risk/Benefits of Procedure(s) Were Explained: Yes Ear Wax Removal Right Ear: Results: Re-examined: cerumen removed completely TM Examination: TM(s) intact, normal appearance Ear Canal Exam: atraumatic Patient Tolerated Procedure: well and no complications Complications: no problems Technique: ear canal irrigated
[2024-03-02 14:15] VITALS: BP 132/85; PULSE 89; RESP 16; TEMP 36.4; O2SAT 98
== END 2024-03-02 14:16 | disposition home or self-care (01) ==
PROVIDERS: Emergency Provider Nurse Practitioner Family; PCP Internal Medicine
DX: H60.91 Unspecified otitis externa, right ear (principal); H61.21 Impacted cerumen, right ear
CPT/HCPCS: 69209; 99213; 99214; G0463

== ENCOUNTER 2024-03-11 09:42 | Outpatient (POV) | payer MEDICARE, SELFPAY ==
--- NOTE | 2024-03-11 10:07 | EXP.PAIN.SOA ---
[facility] Disclaimer: The information contained in this section may have been updated after the patient was seen, as this information can be updated by other users. Medical History (Updated 03/02/24 @ 14:06 by Kirk Amos APRN) History of seizures Thyroid cancer Surgical History History of ankle surgery History of colon resection Family History Other Family history of cancer Social History Smoking Status: Never smoker alcohol intake: never substance use type: denies use current occupational status: retired Travel in the last 8 weeks: None household members: none housing: house current occupation: [employer] caffeine: Yes PM Subjective & Objective Subjective Subjective:: Patient is a pleasant 68-year-old male who presents today for 1 month follow-up. Today he rates his pain a 0 out of 10. Patient denies any new changes. He does state that his last thoracic epidural that was back in December T1 is still seeming like it is helping. He states he will still have some pain when he is at standing for prolonged.'s but he is able to sit back down and take a break and the pain is relieved. Patient does state the pain is much more manageable from what it had been. Patient did complete physical therapy in the past and does state that he is still working on the at home exercises and stretching to help work on his strength and ability to lift. His Hira has been reviewed and is appropriate. Review of Systems: General: No recent weight changes, no fever, no sleep disturbances Respiratory: No cough, no shortness of air, no recurring pulmonary infections Cardiovascular/peripheral vascular: No chest pain, no palpitations, no edema, no shortness of breath Gastrointestinal: No new onset incontinence, normal bowel movements reported Genitourinary: No new onset incontinence Musculoskeletal: Mid back pain Psychiatric: [Normal mood/affect] Neurological: [Denies weakness in extremities], [denies balance issues] Pain at rest (0-10 scale): 0 Objective Objective:: Physical Exam: General: Alert and oriented x3, no acute distress, pleasant and cooperative Lungs: Respirations even and unlabored, symmetrical chest expansion Eyes: PERRL Musculoskeletal: Flexion and extension of thoracic [spine] somewhat guarded secondary to pain, [antalgic gait noted] Neurological: Speech clear, no gross sensory deficit Has patient had previous pain injection?: No Conservative treatment options previously tried: Home exercise plan Length of treatment: Longer than 12 weeks Meds Home Medications and Allergies Home Medications ?Medication ?Instructions ?Recorded ?Confirmed ?Type phenytoin sodium extended 100 mg 100 mg PO BID SEIZURE 03/10/19 02/02/24 History capsule levothyroxine 150 mcg tablet 150 mcg PO DAILY hypothyroidism 12/06/19 02/02/24 History ciprofloxacin 0.3 %-dexamethasone 2 drp Ear-Right BID 7 days #1 ea 03/02/24 Rx 0.1 % ear drops,suspension New Prescriptions to Start Prescriptions: Allergies Allergy/AdvReac Type Severity Reaction Status Date / Time No Known Allergies Allergy Verified 01/13/24 08:12 Assessment and Plan *Assessment and plan (1) Thoracic radiculopathy: Status: Acute Category: Medical Code(s): M54.14 - Radiculopathy, thoracic region (2) Degenerative disc disease, thoracic: Status: Acute Category: Medical Code(s): M51.34 - Other intervertebral disc degeneration, thoracic region Plan Patient continues to do well from his thoracic epidural on January 12 and does not require any additional injection interventions today. I have counseled the patient that we will see him back in 3 months for reevaluation of symptoms and plan of care. Patient has been instructed to contact the clinic with any concerns before the next appointment. Dr. Bronson has reviewed this note and agrees with this plan of care. This note was dictated using voice recognition software and make contain errors or omissions. All injections are used with Lidocaine or Bupivacaine and Depo Medrol.
[2024-03-11 10:16] VITALS: BP 125/80; PULSE 78; RESP 16; O2SAT 99; BMI 18.9
== END 2024-03-11 23:59 | disposition home or self-care (01) ==
LOC: SC.PAIN 09:43
PROVIDERS: PCP Internal Medicine; Visit Provider Nurse Practitioner Family
DX: M51.14 Intervertebral disc disorders with radiculopathy, thoracic region (principal)
CPT/HCPCS: 99212; G0463

== ENCOUNTER 2024-04-27 14:00 | Outpatient (CLI) | payer MEDICARE, SELFPAY ==
[2024-04-27 18:47] LABS: Basophils # 0.1 K/mm3 (0-0.2); Basophils % 1.5 % (0.1-2.0); Eosinophils # 0.2 K/mm3 (0.0-0.4); Eosinophils % 2.9 % (0.1-12.0); Hemoglobin 14.7 g/dL (14.1-18.0); Lymphocytes # 1.3 K/mm3 (0.7-4.5); Lymphocytes % 22.2 % (10-50); Mean Corpuscular HGB Conc 34.1 g/dL (31.8-35.4); Mean Corpuscular Hemoglobin 33.4 pg (27.0-31.2); Mean Corpuscular Volume 97.9 fl (80-94); Mean Platelet Volume 7.5 fl (7.4-10.4); Monocytes # 0.5 K/mm3 (0.1-1.0); Monocytes % 9.2 % (1.7-9.3); Neutrophils # 3.8 K/mm3 (1.8-7.8); Neutrophils % 64.2 % (37.0-80.0); Platelet Count 195 K/mm3 (142-424); Red Blood Count 4.39 M/mm3 (4.60-6.20); Red Cell Distribution Width 13.9 % (11.5-17.5); White Blood Count 5.8 K/mm3 (4.8-10.8)
[2024-04-27 19:15] LABS: Alanine Aminotransferase 31 U/L (12-78); Albumin Level 4.3 g/dl (3.5-5.0); Albumin/Globulin Ratio 1.6 (1.1-1.8); Alkaline Phosphatase 100 U/L (38-126); Anion Gap 13.4 mEq/L (5-15); Aspartate Amino Transferase 46 U/L (17-59); Bilirubin,Total 0.6 mg/dl (0.2-1.3); Blood Urea Nitrogen 7 mg/dl (9-20); Calcium 8.8 mg/dl (8.4-10.2); Carbon Dioxide 27 mmol/L (22.0-30.0); Chloride 99 mmol/L (98-107); Chol/HDL Ratio 2.7 (1-3.5); Cholesterol 288 mg/dl (140-200); Estimated Glomerular Filt Rate 67 ml/min (>60); GFR (African American) 81 ML/MIN (>60); Globulin 2.7 g/dL (1.3-3.2); HDL Cholesterol 106 mg/dl (40-60); Phenytoin (Dilantin) 5.7 ug/ml (10-20); Potassium 3.4 mmoL/L (3.5-5.1); Sodium 136 mmol/L (136-145); Triglycerides 69 mg/dl (30-150); VLDL Cholesterol 14 mg/dL (0-40)
[2024-04-27 19:24] LABS: Direct LDL Cholesterol 161.28 mg/dL (100-129)
[2024-04-27 19:38] LABS: Glucose 45 mg/dl (74-100)
[2024-04-27 19:43] LABS: Prostate Specific Ag Screen 1.1 ng/ml (0.0-4.0)
[2024-04-27 20:14] LABS: Thyroid Stimulating Hormone > 100.00 uIU/mL (0.465-4.68)
[2024-05-11 09:22] LABS: 1,25 Dihydroxy Vitamin D 85 pg/mL (.); 1,25-Dihydroxy, Vitamin D-2 <10 pg/mL (.); 1,25-Dihydroxy, Vitamin D-3 85 pg/mL (.)
== END 2024-04-27 23:59 | disposition home or self-care (01) ==
LOC: LAB.DROPOF 04-28 10:30
PROVIDERS: PCP Internal Medicine; Visit Provider Internal Medicine
DX: G40.909 Epilepsy, unspecified, not intractable, without status epilepticus (principal); E03.9 Hypothyroidism, unspecified; E78.5 Hyperlipidemia, unspecified; Z12.5 Encounter for screening for malignant neoplasm of prostate; E55.9 Vitamin D deficiency, unspecified
CPT/HCPCS: 80053; 80061; 80185; 82652; 84443; 85025; G0103

== ENCOUNTER 2024-05-24 14:47 | Outpatient (CLI) | payer MEDICARE, SELFPAY | END 2024-05-24 23:59 | disposition home or self-care (01) | LOC: LAB.DROPOF 14:48 | PROVIDERS: PCP Internal Medicine; Visit Provider Internal Medicine | DX: G40.909 Epilepsy, unspecified, not intractable, without status epilepticus (principal) | CPT/HCPCS: 80185 ==

== ENCOUNTER 2024-05-28 13:20 | Outpatient (CLI) | payer MEDICARE, SELFPAY ==
[2024-05-28 14:31] LABS: Thyroid Stimulating Hormone 0.24 uIU/mL (0.465-4.68)
== END 2024-05-28 23:59 | disposition home or self-care (01) ==
LOC: LAB 13:21
PROVIDERS: PCP Internal Medicine; Visit Provider Internal Medicine
DX: E03.9 Hypothyroidism, unspecified (principal)
CPT/HCPCS: 36415; 84443

== ENCOUNTER 2024-06-03 11:02 | Outpatient (POV) | payer MEDICARE, SELFPAY ==
[2024-06-03 11:17] VITALS: BP 132/80; PULSE 78; RESP 14; O2SAT 98
--- NOTE | 2024-06-03 11:20 | EXP.PAIN.SOA ---
[facility] Disclaimer: The information contained in this section may have been updated after the patient was seen, as this information can be updated by other users. Medical History History of seizures Thyroid cancer Surgical History History of ankle surgery History of colon resection Family History Other Family history of cancer Social History Smoking Status: Never smoker alcohol intake: never substance use type: denies use current occupational status: other Travel in the last 8 weeks: None household members: none housing: house current occupation: [employer] caffeine: Yes PM Subjective & Objective Subjective Subjective:: Patient is a pleasant 68-year-old male who presents today for 3-month follow-up. He does rate his pain a 5 out of 10. He denies any new falls or injuries. He does state that he feels like his last epidural has officially worn off over the last month. He does state his pain is much worse and that he is having difficulty standing and walking due to the pain. Patient did previously get a thoracic epidural of T12 that did wonderful and provided significant improved function. Patient had this done back in December. He does state he would like to see about getting it repeated. Patient states the pain is an aching, throbbing sensation that does radiate down with numbness and tingling. He states that is affecting his ability to perform activities of daily living such as cooking and cleaning. Patient is not on any blood thinners. Patient has continued to do oral medication, heat and ice, topicals, previous physical therapy and continued at home stretching exercise that was physician guided with no improvement. His Hira has been reviewed and is appropriate. Review of Systems: General: No recent weight changes, no fever, no sleep disturbances Respiratory: No cough, no shortness of air, no recurring pulmonary infections Cardiovascular/peripheral vascular: No chest pain, no palpitations, no edema, no shortness of breath Gastrointestinal: No new onset incontinence, normal bowel movements reported Genitourinary: No new onset incontinence Musculoskeletal: Mid back pain, low back pain Psychiatric: [Normal mood/affect] Neurological: [Denies weakness in extremities], [denies balance issues] Pain at rest (0-10 scale): 5 Objective Objective:: Physical Exam: General: Alert and oriented x3, no acute distress, pleasant and cooperative Lungs: Respirations even and unlabored, symmetrical chest expansion Eyes: PERRL Musculoskeletal: Flexion and extension of thoracic [spine] somewhat guarded secondary to pain, [antalgic gait noted] Neurological: Speech clear, no gross sensory deficit Has patient had previous pain injection?: No Conservative treatment options previously tried: Home exercise plan Length of treatment: Longer than 12 weeks Meds Home Medications and Allergies Home Medications ?Medication ?Instructions ?Recorded ?Confirmed ?Type ciprofloxacin 0.3 %-dexamethasone 2 drp Ear-Right BID 7 days #1 ea 03/02/24 06/03/24 Rx 0.1 % ear drops,suspension tamsulosin 0.4 mg capsule 0.4 mg PO HS For urination #90 caps 04/27/24 06/03/24 Rx phenytoin sodium extended 100 mg See Rx Instructions PO BID SEIZURE 04/28/24 06/03/24 Rx capsule #270 caps levothyroxine 137 mcg tablet See Rx Instructions .Route 05/10/24 06/03/24 Rx .COMPLEX #90 tabs New Prescriptions to Start Prescriptions: Allergies Allergy/AdvReac Type Severity Reaction Status Date / Time No Known Allergies Allergy Verified 05/24/24 08:28 Assessment and Plan *Assessment and plan (1) Thoracic radiculopathy: Status: Acute Category: Medical Code(s): M54.14 - Radiculopathy, thoracic region (2) Degenerative disc disease, thoracic: Status: Acute Category: Medical Code(s): M51.34 - Other intervertebral disc degeneration, thoracic region (3) Burst fracture of T12 vertebra: Status: Acute Category: Medical Code(s): S22.081A - Stable burst fracture of T11-T12 vertebra, initial encounter for closed fracture Plan Patient is experiencing worse pain in his mid back that is radiating downward with numbness and tingling and is related to a burst fracture at the T12 vertebra. Patient did have limited range of motion of his thoracic spine. I have discussed with the patient that I do believe he would benefit from a repeat epidural. I have gone over the risk and benefits of a thoracic epidural steroid injection. Patient would like to proceed forward with this option. Patient is not on any blood thinners. He has tried and failed conservative therapies such as oral medication, heat and ice, topicals, current physical therapy and continued at home exercising and stretching for longer than 12 weeks between injections. Patient did previously have his first thoracic epidural in December that did provide 75% improvement and has lasted up until around April with improved function. We will submit to insurance for a thoracic epidural steroid injection T12 under fluoroscopy. Patient has been instructed to contact the clinic with any concerns before the next appointment. Dr. Bronson has reviewed this note and agrees with this plan of care. This note was dictated using voice recognition software and make contain errors or omissions. All injections are used with Lidocaine, Bupivacaine and Depo Medrol. Occasionally urine drug screen is needed to verify patient's compliance with our office pain contract. This is ordered based off specific treatments related to chronic pain with the potential to abuse certain medications.
== END 2024-06-03 23:59 | disposition home or self-care (01) ==
LOC: SC.PAIN 11:04
PROVIDERS: PCP Internal Medicine; Visit Provider Nurse Practitioner Family
DX: M51.14 Intervertebral disc disorders with radiculopathy, thoracic region (principal); S22.081A Stable burst fracture of T11-T12 vertebra, initial encounter for closed fracture; Z73.89 Other problems related to life management difficulty
CPT/HCPCS: 99212; G0463

== ENCOUNTER 2024-06-11 10:19 | Emergency (ER) | payer MEDICARE, SELFPAY ==
[2024-06-11 11:55] VITALS: BP 115/75; PULSE 105; RESP 21; TEMP 36.7; O2SAT 100
--- NOTE | 2024-06-11 12:10 | EXP.UTC ---
Discharge Plan Disposition Patient Disposition: Home, Self-Care Condition: Good Prescriptions Prescriptions: New azithromycin [Zithromax Z-Geremias] 250 mg tablet See Rx Instructions .ROUTE .COMPLEX 5 Days Qty: 6 0RF Rx Instructions: For 250 mg dose pack: take 500 mg today (day 1), then 250 mg for 4 days (days 2-5) No Action levothyroxine 175 mcg tablet 175 mcg PO DAILY Patient Comments: TAKE 1 TABLET BY MOUTH ONCE DAILY levothyroxine 137 mcg tablet 137 mcg PO DAILY Patient Comments: Take 1 tablet by mouth once daily phenytoin sodium extended 100 mg capsule 100 mg PO BID Patient Comments: TAKE 1 CAPSULE BY MOUTH TWICE DAILY FOR SEIZURE tamsulosin 0.4 mg capsule 0.4 mg PO HS Patient Comments: TAKE 1 CAPSULE BY MOUTH AT BEDTIME NIGHTLY levothyroxine 150 mcg tablet 150 mcg PO DAILY Patient Comments: TAKE 1 TABLET BY MOUTH ONCE DAILY Referrals Follow up/Referrals: Stevo Beard MD [Primary Care Provider] - See instructions Activity Restrictions/Add. Instructions Additional Instructions/Restrictions: *Monitor Temp, Over the counter Motrin or Tylenol as directed/as needed Tylenol every 4 hours and Motrin every 6 hours (as long as your family doctor has told you that you can take it) for fever or pain. and straight to ER if unable to lower temp less than 101.0 after medication given *Warm salt water gargles may help to soothe the throat *Throat Lozenges? *Warm fluids like tea with honey may help to soothe the throat? *Sleep elevated *Humidifier/Vaporizer Follow up IMMEDIATELY for new or worsening symptoms or no Noticeable improvement over the next 48-72 hours. 911 for difficulty breathing or swallowing Clinical Impressions Clinical Impression: Sinusitis Qualifiers: Sinusitis location: unspecified location Chronicity: acute Recurrence: non-recurrent Qualified Code(s): J01.90 - Acute sinusitis, unspecified Instructions Patient Instructions: DI for Sinusitis, Sinusitis Print Language Print Language: Mozambican Discharge ED Provider: Michelle Sher [facility] General Stated complaint: sinus congestion, cough, sore throat Mode of Arrival: Ambulatory Source of Information: Patient Limitations: No Limitations Time Seen by Provider: 06/11/24 12:10 Description of Symptoms (Recalled from Triage Doc. by RN): PATIENT C/O SINUS PRESSURE/DRAINAGE, COUGH, HEADACHE AND SORE THROAT X 2 DAYS HEENT Symptoms (Recalled from RN notes): Yes Resp Symptoms (Recalled from RN notes): Yes Skin Symptoms (Recalled from RN notes): No MS Symptoms (Recalled from RN notes): No Functional Status (Recalled from RN notes): WNL History of Present Illness Provider Complaint: Patient states that he has been having sinus problems for over a week worse in the last couple of days States he is having sinus pressure, drainage in the back of his throat making his throat feels sore and raw States tried to do a COVID test at home and it was inclusive States not been around anyone that he is aware of but wants tested Related Data Home Medications ?Medication ?Instructions ?Recorded ?Confirmed levothyroxine 137 mcg tablet 137 mcg PO DAILY 06/11/24 06/11/24 levothyroxine 150 mcg tablet 150 mcg PO DAILY 06/11/24 06/11/24 levothyroxine 175 mcg tablet 175 mcg PO DAILY 06/11/24 06/11/24 phenytoin sodium extended 100 mg 100 mg PO BID 06/11/24 06/11/24 capsule tamsulosin 0.4 mg capsule 0.4 mg PO HS 06/11/24 06/11/24 Previous Rx's ?Medication ?Instructions ?Recorded azithromycin 250 mg tablet See Rx Instructions PO .COMPLEX 5 06/11/24 (Zithromax Z-Geremias) days #6 tabs Allergies Allergy/AdvReac Type Severity Reaction Status Date / Time No Known Allergies Allergy Verified 05/24/24 08:28 Worker's Comp Is this a Worker's Comp case?: No [facility] Disclaimer: The information contained in this section may have been updated after the patient was seen, as this information can be updated by other users. Medical History History of seizures Thyroid cancer Surgical History History of ankle surgery History of colon resection Family History Other Family history of cancer Social History Smoking Status: Never smoker alcohol intake: never substance use type: denies use current occupational status: other Travel in the last 8 weeks: None household members: none housing: house current occupation: [employer] caffeine: Yes Have you lived/traveled outside [place] in past 30 days?: No Contact w/someone who lives/traveled outside [place] past 30 days?: No Exposure to someone with infectious disease in past 14 days?: No Do you have a fever (greater than 100.4 F or 38 C)?: No Have you tested positive for COVID-19: No Exposed to someone with COVID-19 in past 14 days?: No Do you have a sore throat?: Yes Do you have a cough?: Yes Do you have any weakness?: No Do you have any diarrhea?: No Are you experiencing any unusual bleeding?: No Do you have any muscle aches/pain?: No Do you have any abdominal pain?: No Are you experiencing loss of taste or smell?: No ROS Obtained: Yes All systems reviewed & no additional complaints except as documented and Yes Systems reviewed as appropriate & no additional complaints except as documented Constitutional Constitutional: Reports system reviewed and no additional complaints, except as documented, Reports as per HPI and Reports headache(s) ENT Ears, Nose, Mouth, and Throat: Reports system reviewed and no additional complaints, except as documented, Reports as per HPI, Reports headache(s), Reports nasal discharge, Reports sinus pain, Reports sinus pressure and Reports sore throat Cardiovascular Cardiovascular: Reports system reviewed and no additional complaints, except as documented and Reports as per HPI Respiratory Respiratory: Reports system reviewed and no additional complaints, except as documented and Reports as per HPI Neurologic Neurologic: Reports headache(s) Physical Exam General General appearance: alert and in no apparent distress ENT ENT exam: Present mucous membranes moist Expanded ENT Exam Nose exam: Present sinus tenderness Throat exam: Present other (PND noted) Respiratory Respiratory exam: Present normal lung sounds bilaterally; Absent respiratory distress or wheezes Cardiovascular Cardiovascular exam: Present regular rate, normal rhythm and normal heart sounds Neurological Exam Neurological exam: Present alert, oriented X3 and normal gait Medical Decision Making Medical Records Screening: Per USPSTF and CDC recommendations, given the prevalence of disease in our region, it is our hospital?s policy to screen for HIV and viral Hepatitis for all patients aged 18 and over and those with ongoing risk factors. Hira Inquiry Pt receiving controlled substance: No Hira was queried for this patient: No Vital Signs: 06/11/24 11:55 Temperature 98.0 F Temperature Source Oral Pulse Rate [Left Brachial] 105 H Respiratory Rate 21 Blood Pressure [Left Arm] 115/75 Blood Pressure Mean [Left Arm] 88 Blood Pressure Source [Left Arm] Automatic Cuff Blood Pressure Position [Left Arm] Sitting 02 Sat by Pulse Oximetry 100 Oxygen Delivery Method Room Air Orders (Tests/Meds): ORDERS Category Date Time Status Mini Respiratory Panel Stat Lab 06/11/24 12:10 Ordered
[2024-06-11 12:23] VITALS: BP 115/75; PULSE 105; RESP 21; TEMP 36.7; O2SAT 100
[2024-06-11 12:34] LABS: Human Rhinovirus Not Detected (NotDetected); Influenza A, PCR Not Detected (NotDetected); Influenza B, PCR Not Detected (NotDetected); Respiratory Syncytial Virus Not Detected (NotDetected)
[2024-06-11 15:40] LABS: Coronavirus 19, PCR Detected (NotDetected)
== END 2024-06-11 12:32 | disposition home or self-care (01) ==
PROVIDERS: Emergency Provider Nurse Practitioner; PCP Internal Medicine
DX: J01.90 Acute sinusitis, unspecified (principal)
CPT/HCPCS: 87631; 99213; G0381

== ENCOUNTER 2024-06-29 08:14 | Day surgery (SDC) | payer MEDICARE, SELFPAY ==
[2024-06-29 08:31] VITALS: BP 125/86; PULSE 81; RESP 16; TEMP 36.6; O2SAT 100
[2024-06-29] MEDS: IOPAMIDOL-200 (41%);10ML VIAL IV (08:57)
[2024-06-29 09:00] VITALS: BP 124/73; PULSE 68; RESP 18; O2SAT 98
[2024-06-29] MEDS: methylPREDNISolone ACETATE 80MG/ML VIAL 80 MG (09:04)
[2024-06-29 09:08] VITALS: BP 161/84; PULSE 75; RESP 18; O2SAT 100
[2024-06-29 09:12] VITALS: BP 161/84; PULSE 75; RESP 18; O2SAT 100
--- NOTE | 2024-06-29 10:46 | EXP.PAIN.PRO ---
Procedure Date: 06/29/24 Time: 08:45 Anesthesiologist:: Tarun Rivera CRNA Complications:: None Pre-procedure Diagnosis:: Degenerative disc thoracic spine. Chronic vertebral fracture T12. Thoracic arthropathy. Thoracic spondylosis. Post-procedure Diagnosis:: Same Indications for Procedure:: Patient is a very pleasant 69-year-old male who comes to our clinic today for a T12 epidural steroid injection. Patient has chronic T12 vertebral fracture. Chronic thoracic back pain. He rates his pain 8/10. Procedure Details:: Procedure:Thoracic epidural steroid injection under fluoroscopy Informed consent was obtained and the risks and benefits of the procedure were explained to the patient. The patient was taken to the procedure room and noninvasive monitors placed, including noninvasive blood pressure cuff and pulse oximeter. The back was viewed using C-Arm fluoroscopy and prepped using Betadine as a cleansing solution and the T11-12 interspace was palpated. Skin and subcutaneous tissues were anesthetized using lidocaine 1.5% and a 25-gauge needle. After this, an 18-gauge Touhy epidural needle was placed into the T11-12 interspace and advanced using fluoroscopic guidance and loss of resistance to air until the epidural space was encountered. After confirmation of needle placement in the epidural space, with dye, a solution containing lidocaine 1.5%, 4 mL and Depo-Medrol 80 mg were incrementally injected into the thoracic epidural space. The patient tolerated the procedure well with no complications. The patient was observed in the Pain Clinic and then discharged home neurologically intact. Plan and Disposition:: Patient was discharged without incident.
== END 2024-06-29 09:00 | disposition home or self-care (01) ==
LOC: SC.PAINP 08:16
PROVIDERS: PCP Internal Medicine; Visit Provider Nurse Anesthetist, Certified Registered
DX: S22.081A Stable burst fracture of T11-T12 vertebra, initial encounter for closed fracture (principal); M51.34 Other intervertebral disc degeneration, thoracic region; M47.814 Spondylosis without myelopathy or radiculopathy, thoracic region
CPT/HCPCS: 62321; J1010; Q9966

== ENCOUNTER 2024-07-12 11:00 | Outpatient (POV) | payer MEDICARE, SELFPAY ==
--- NOTE | 2024-07-12 11:10 | EXP.PAIN.SOA ---
[facility] Disclaimer: The information contained in this section may have been updated after the patient was seen, as this information can be updated by other users. Medical History History of seizures Thyroid cancer Surgical History History of ankle surgery History of colon resection Family History Other Family history of cancer Social History Smoking Status: Never smoker alcohol intake: never substance use type: denies use current occupational status: other Travel in the last 8 weeks: None household members: none housing: house current occupation: [employer] caffeine: Yes PM Subjective & Objective Subjective Subjective:: Patient is a pleasant 69-year-old male who presents today for follow-up of T11-T12 epidural injection on 06/29/2024. Today he rates his pain a 5 out of 10. He does state that he has had at least 75% improvement following this injection but feels like he is already starting to experience a little bit more pain in that mid back area. He denies any new falls or injuries. He states the injection prior to that 1 did last for over a month or more. He does feel like this 1 is helped it just may not have been as good as the other epidural. Patient was prescribed compounded cream in the past however felt like it really did not do a whole lot. His Hira has been reviewed and is appropriate. Review of Systems: General: No recent weight changes, no fever, no sleep disturbances Respiratory: No cough, no shortness of air, no recurring pulmonary infections Cardiovascular/peripheral vascular: No chest pain, no palpitations, no edema, no shortness of breath Gastrointestinal: No new onset incontinence, normal bowel movements reported Genitourinary: No new onset incontinence Musculoskeletal: Mid back pain Psychiatric: [Normal mood/affect] Neurological: [Denies weakness in extremities], [denies balance issues] Pain at rest (0-10 scale): 5 Objective Objective:: Physical Exam: General: Alert and oriented x3, no acute distress, pleasant and cooperative Lungs: Respirations even and unlabored, symmetrical chest expansion Eyes: PERRL Musculoskeletal: Flexion and extension of thoracic [spine] somewhat guarded secondary to pain, [antalgic gait noted] Neurological: Speech clear, no gross sensory deficit Has patient had previous pain injection?: Yes Percent improvement in pain since last injection: 75% Conservative treatment options previously tried: Home exercise plan Length of treatment: Longer than 12 weeks Meds Home Medications and Allergies Home Medications ?Medication ?Instructions ?Recorded ?Confirmed ?Type levothyroxine 175 mcg tablet 175 mcg PO DAILY 06/11/24 06/29/24 History tamsulosin 0.4 mg capsule 0.4 mg PO HS 06/11/24 06/29/24 History phenytoin sodium extended 100 mg 100 mg PO TID #90 caps 07/02/24 Rx capsule baclofen 5 mg tablet 5 mg PO HS #14 tabs 07/12/24 Rx lidocaine 5 % topical patch 1 patch topical DAILY #30 ea 07/12/24 Rx New Prescriptions to Start Prescriptions: baclofen Urias,Nelida A lidocaine Urias,Nelida A Allergies Allergy/AdvReac Type Severity Reaction Status Date / Time No Known Allergies Allergy Verified 05/24/24 08:28 Assessment and Plan *Assessment and plan (1) Degenerative disc disease, thoracic: Status: Acute Category: Medical Code(s): M51.34 - Other intervertebral disc degeneration, thoracic region (2) Burst fracture of T12 vertebra: Status: Acute Category: Medical Code(s): S22.081A - Stable burst fracture of T11-T12 vertebra, initial encounter for closed fracture Plan Patient has had significant improvement following his thoracic epidural and does not require any additional injection therapy at this time. I did discuss with the patient that I will send in a prescription of lidocaine 5% patches and also send in a prescription of baclofen 5 mg at bedtime with a 14-day supply. Patient will return to clinic in 1 month for reevaluation of symptoms and plan of care. I did discuss with him and his family that if the medication does help he can call and ask for additional refills between now and his next appointment. Patient acknowledges understanding. Patient has been instructed to contact the clinic with any concerns before the next appointment. Dr. Bronson has reviewed this note and agrees with this plan of care. This note was dictated using voice recognition software and make contain errors or omissions. All injections are used with Lidocaine, Bupivacaine and Depo Medrol. Occasionally urine drug screen is needed to verify patient's compliance with our office pain contract. This is ordered based off specific treatments related to chronic pain with the potential to abuse certain medications.
[2024-07-12 11:37] VITALS: BP 138/77; PULSE 87; RESP 14; O2SAT 100
== END 2024-07-12 23:59 | disposition home or self-care (01) ==
PROVIDERS: PCP Internal Medicine; Visit Provider Nurse Practitioner Family
DX: M51.34 Other intervertebral disc degeneration, thoracic region (principal); S22.081A Stable burst fracture of T11-T12 vertebra, initial encounter for closed fracture
CPT/HCPCS: 99212; G0463

== ENCOUNTER 2024-08-13 14:58 | Outpatient (POV) | payer MEDICARE, SELFPAY ==
[2024-08-13 15:23] VITALS: BP 116/67; PULSE 84; RESP 18; O2SAT 100
--- NOTE | 2024-08-13 15:25 | EXP.PAIN.SOA ---
[facility] Disclaimer: The information contained in this section may have been updated after the patient was seen, as this information can be updated by other users. Medical History History of seizures Thyroid cancer Surgical History History of ankle surgery History of colon resection Family History Other Family history of cancer Social History Smoking Status: Never smoker alcohol intake: never substance use type: denies use current occupational status: other Travel in the last 8 weeks: None household members: none housing: house current occupation: [employer] caffeine: Yes Have you lived/traveled outside [place] in past 30 days?: No Contact w/someone who lives/traveled outside US past 30 days?: No Exposure to someone with infectious disease in past 14 days?: No Do you have a fever (greater than 100.4 F or 38 C)?: No Have you tested positive for COVID-19: No Exposed to someone with COVID-19 in past 14 days?: No Do you have a sore throat?: No Do you have a cough?: No Do you have any weakness?: No Do you have any diarrhea?: No Are you experiencing any unusual bleeding?: No Do you have any muscle aches/pain?: No Do you have any abdominal pain?: No Are you experiencing loss of taste or smell?: No PM Subjective & Objective Subjective Subjective:: Patient is a pleasant 69-year-old male who presents today for follow-up. Today he rates his pain a 4 out of 10. He denies any new trauma or injury. He does state that the lidocaine patches and baclofen did not seem like they made much difference in his pain. He states he still continues to have the mid back pain that does seem like it is going up. Patient denies any heart or kidney issues. Patient did previously have a thoracic epidural that did provide good relief however it was temporary. Patient does state that the first of the mornings he does really well it just seems like by the afternoon is when the pain is worse. He is asking if there is anything else we can try. His Hira has been reviewed and is appropriate. Review of Systems: General: No recent weight changes, no fever, no sleep disturbances Respiratory: No cough, no shortness of air, no recurring pulmonary infections Cardiovascular/peripheral vascular: No chest pain, no palpitations, no edema, no shortness of breath Gastrointestinal: No new onset incontinence, normal bowel movements reported Genitourinary: No new onset incontinence Musculoskeletal: Mid back pain Psychiatric: [Normal mood/affect] Neurological: [Denies weakness in extremities], [denies balance issues] Pain at rest (0-10 scale): 4 Objective Objective:: Physical Exam: General: Alert and oriented x3, no acute distress, pleasant and cooperative Lungs: Respirations even and unlabored, symmetrical chest expansion Eyes: PERRL Musculoskeletal: Flexion and extension of thoracic [spine] somewhat guarded secondary to pain, [antalgic gait noted] Neurological: Speech clear, no gross sensory deficit Has patient had previous pain injection?: No Conservative treatment options previously tried: Home exercise plan Length of treatment: Longer than 12 weeks Meds Home Medications and Allergies Home Medications ?Medication ?Instructions ?Recorded ?Confirmed ?Type levothyroxine 175 mcg tablet 175 mcg PO DAILY 06/11/24 08/13/24 History tamsulosin 0.4 mg capsule 0.4 mg PO HS 06/11/24 08/13/24 History phenytoin sodium extended 100 mg 100 mg PO TID #90 caps 07/02/24 08/13/24 Rx capsule baclofen 5 mg tablet 5 mg PO HS #14 tabs 07/12/24 08/13/24 Rx lidocaine 5 % topical patch 1 patch topical DAILY #30 ea 07/12/24 08/13/24 Rx meloxicam 15 mg tablet 15 mg PO DAILY #14 tabs 08/13/24 Rx New Prescriptions to Start Prescriptions: meloxicam Nelida Urias Allergies Allergy/AdvReac Type Severity Reaction Status Date / Time No Known Allergies Allergy Verified 05/24/24 08:28 Assessment and Plan *Assessment and plan (1) Thoracic radiculopathy: Status: Acute Category: Medical Code(s): M54.14 - Radiculopathy, thoracic region (2) Degenerative disc disease, thoracic: Status: Acute Category: Medical Code(s): M51.34 - Other intervertebral disc degeneration, thoracic region Plan I will order updated x-ray imaging of his thoracic spine and also send in a 14-day supply of meloxicam 15 mg daily. Patient denied any heart or kidney issues. He was counseled to discontinue all other NSAIDs while taking this medication. We will follow-up with the patient in 2 weeks. Patient has been instructed to contact the clinic with any concerns before the next appointment. Dr. Bronson has reviewed this note and agrees with this plan of care. This note was dictated using voice recognition software and make contain errors or omissions. All injections are used with Lidocaine, Bupivacaine and Depo Medrol. Occasionally urine drug screen is needed to verify patient's compliance with our office pain contract. This is ordered based off specific treatments related to chronic pain with the potential to abuse certain medications.
--- NOTE | 2024-08-13 15:46 | XR_ITS ---
FINAL REPORT CLINICAL HISTORY: Mid back pain, limited range of motion COMPARISON: 11/17/2023 CT lumbar spine FINDINGS: THORACIC SPINE Three views of the thoracic spine were obtained. There is a chronic moderate to severe compression fracture of T12, similar to prior CT lumbar spine from 11/17/2023. There is a mild compression fracture of T4 which is age-indeterminate. Thoracic kyphosis is noted. There are changes of osteopenia. There is no malalignment. IMPRESSION: Age-indeterminate mild T4 compression fracture. Stable chronic T12 compression fracture. Reviewed, Interpreted and Dictated by Deandra Cruz MD Transcribed by Rita Sauceda Authenticated and [facility]
--- NOTE | 2024-08-16 08:12 | PC.NURSE ---
Addendum entered by Aye Thomas RN 08/16/24 14:27: Spoke with pt on the phone at this time, notified pt of xray results per provider request. Provider has ordered pt an MRI for thoracic spine, time scheduled for August 23 at 5pm. Advised pt if something comes up and he can not make that appt to call scheduling and they can get pt an alternate date/time. Pt verbalized understanding of results and MRI appt time. Original Note: per provider request called to notify pt of xray results. No answer, vm left requesting a call back.
== END 2024-08-13 23:59 | disposition home or self-care (01) ==
PROVIDERS: PCP Internal Medicine; Visit Provider Nurse Practitioner Family
DX: M51.14 Intervertebral disc disorders with radiculopathy, thoracic region (principal); S22.040A Wedge compression fracture of fourth thoracic vertebra, initial encounter for closed fracture
CPT/HCPCS: 72072; 99212; G0463

== ENCOUNTER 2024-08-23 15:15 | Outpatient (CLI) | payer MEDICARE, SELFPAY | END 2024-08-23 23:59 | disposition home or self-care (01) | LOC: RAD 15:16 | PROVIDERS: PCP Internal Medicine; Visit Provider Nurse Practitioner Family | DX: M54.14 Radiculopathy, thoracic region (principal); S22.040A Wedge compression fracture of fourth thoracic vertebra, initial encounter for closed fracture ==

== ENCOUNTER 2024-08-30 07:00 | Outpatient (CLI) | payer MEDICARE, SELFPAY ==
--- NOTE | 2024-08-30 07:02 | MR_ITS ---
FINAL REPORT TECHNIQUE: Multiplanar MR without contrast CLINICAL HISTORY: thoracic radiculopathy, compression fracture at T4 COMPARISON: None FINDINGS: MRI THORACIC SPINE: There are chronic compression fractures of the T4, T5, and T12 vertebral bodies, most severe at the T12 level. There is minimal retropulsion of bone at the T4 and T5 levels without evidence of canal stenosis. Marrow signal pattern is unremarkable. Alignment is normal. There is a tiny syrinx in the mid and distal spinal cord that measures up to 1 mm in diameter. No significant disc disease is appreciated. There is no canal stenosis present. IMPRESSION: Chronic compression fractures as described of T4, T5, and T12, most severe at the T12 level. No significant disc disease is identified, nor is there is significant canal stenosis. Tiny syrinx in the mid and distal thoracic cord measuring up to 1 mm in size. Reviewed, Interpreted and Dictated by Deandra Cruz MD Transcribed by Nereida Madrigal Authenticated and [facility]
[2024-08-30 19:03] LABS: Thyroid Stimulating Hormone < 0.02 uIU/mL (0.465-4.68)
== END 2024-08-30 23:59 | disposition home or self-care (01) ==
LOC: RAD 07:02
PROVIDERS: PCP Internal Medicine; Visit Provider Nurse Practitioner Family
DX: M54.14 Radiculopathy, thoracic region (principal); S22.040A Wedge compression fracture of fourth thoracic vertebra, initial encounter for closed fracture; E03.9 Hypothyroidism, unspecified
CPT/HCPCS: 72146; 84443

== ENCOUNTER 2024-09-02 13:39 | Outpatient (POV) | payer MEDICARE, SELFPAY ==
[2024-09-02 14:45] VITALS: BP 137/72; PULSE 76; RESP 16; O2SAT 100
--- NOTE | 2024-09-02 15:55 | A.OFFVIS_ITS ---
[facility] Disclaimer: The information contained in this section may have been updated after the patient was seen, as this information can be updated by other users. Medical History History of seizures Thyroid cancer Surgical History History of ankle surgery History of colon resection Family History Other Family history of cancer Social History Smoking Status: Never smoker alcohol intake: never substance use type: denies use current occupational status: other Travel in the last 8 weeks: None household members: none housing: house current occupation: [employer] caffeine: Yes Have you lived/traveled outside [place] in past 30 days?: No Contact w/someone who lives/traveled outside US past 30 days?: No Exposure to someone with infectious disease in past 14 days?: No Do you have a fever (greater than 100.4 F or 38 C)?: No Have you tested positive for COVID-19: No Exposed to someone with COVID-19 in past 14 days?: No Do you have a sore throat?: No Do you have a cough?: No Do you have any weakness?: No Do you have any diarrhea?: No Are you experiencing any unusual bleeding?: No Do you have any muscle aches/pain?: No Do you have any abdominal pain?: No Are you experiencing loss of taste or smell?: No PM Subjective & Objective Subjective Subjective:: Patient is a pleasant 69-year-old male who presents today for follow-up of his thoracic MRI. Today he rates his pain a 2 out of 10. He states while he is seated he only has minimal pain it is more when he is up walking for prolonged times that it does get much worse. Patient does have to stop and take multiple breaks due to the increasing pain. Patient has had injections in the past including thoracic epidurals that have provided significant relief however frequently only did temporary improvement. His Hira has been reviewed and is appropriate. Review of Systems: General: No recent weight changes, no fever, no sleep disturbances Respiratory: No cough, no shortness of air, no recurring pulmonary infections Cardiovascular/peripheral vascular: No chest pain, no palpitations, no edema, no shortness of breath Gastrointestinal: No new onset incontinence, normal bowel movements reported Genitourinary: No new onset incontinence Musculoskeletal: Mid back pain Psychiatric: [Normal mood/affect] Neurological: [Denies weakness in extremities], [denies balance issues] Pain at rest (0-10 scale): 2 Objective Objective:: Physical Exam: General: Alert and oriented x3, no acute distress, pleasant and cooperative Lungs: Respirations even and unlabored, symmetrical chest expansion Eyes: PERRL Musculoskeletal: Flexion and extension of thoracic [spine] somewhat guarded secondary to pain, [antalgic gait noted] Neurological: Speech clear, no gross sensory deficit Has patient had previous pain injection?: No Conservative treatment options previously tried: Home exercise plan Length of treatment: Longer than 12 weeks Meds Home Medications and Allergies Home Medications ?Medication ?Instructions ?Recorded ?Confirmed ?Type levothyroxine 175 mcg tablet 175 mcg PO DAILY 06/11/24 08/30/24 History tamsulosin 0.4 mg capsule 0.4 mg PO HS 06/11/24 08/30/24 History phenytoin sodium extended 100 mg 100 mg PO TID #90 caps 07/02/24 08/30/24 Rx capsule baclofen 5 mg tablet 5 mg PO HS #14 tabs 07/12/24 08/30/24 Rx lidocaine 5 % topical patch 1 patch topical DAILY #30 ea 07/12/24 08/30/24 Rx meloxicam 15 mg tablet 15 mg PO DAILY #14 tabs 08/13/24 08/30/24 Rx New Prescriptions to Start Prescriptions: Allergies Allergy/AdvReac Type Severity Reaction Status Date / Time No Known Allergies Allergy Verified 08/30/24 14:52 Assessment and Plan *Assessment and plan (1) Compression fracture: Status: Acute Category: Medical (2) Burst fracture of T12 vertebra: Status: Acute Category: Medical Code(s): S22.081A - Stable burst fracture of T11-T12 vertebra, initial encounter for closed fracture (3) Degenerative disc disease, thoracic: Status: Acute Category: Medical Code(s): M51.34 - Other intervertebral disc degeneration, thoracic region (4) Thoracic radiculopathy: Status: Acute Category: Medical Code(s): M54.14 - Radiculopathy, thoracic region Plan I did review over with the patient regarding his MRI imaging and findings. Patient did have multiple chronic compression fractures of T4, T5 and T12. I did discuss with the condition of his overall back and history of multiple compression fractures that I do believe he would be a beneficial candidate of a intrathecal pain pump trial. Risk and benefits and educational handouts were given at today's visit. I would like to order the patient a DEXA scan due to the multiple compression fracture history. Patient denies ever having 1 in the past or being told that he had osteoporosis. Patient does have a history of previous cancer that did require chemo and radiation. I did discuss with the patient that this definitely would play a role in his bones. Patient will return to clinic in 1 month to follow-up of his DEXA scan and whether or not he would like to proceed forward with the psychological evaluation for possible intrathecal pain pump trial. Patient agrees with this plan of care. Patient has been instructed to contact the clinic with any concerns before the next appointment. Dr. Bronson has reviewed this note and agrees with this plan of care. This note was dictated using voice recognition software and make contain errors or omissions. All injections are used with Lidocaine, Bupivacaine and Depo Medrol. Occasionally urine drug screen is needed to verify patient's compliance with our office pain contract. This is ordered based off specific treatments related to chronic pain with the potential to abuse certain medications.
== END 2024-09-02 23:59 | disposition home or self-care (01) ==
LOC: SC.PAIN 13:41
PROVIDERS: PCP Internal Medicine; Visit Provider Nurse Practitioner Family
DX: S22.081A Stable burst fracture of T11-T12 vertebra, initial encounter for closed fracture (principal); M51.14 Intervertebral disc disorders with radiculopathy, thoracic region
CPT/HCPCS: 99212; G0463

== ENCOUNTER 2024-09-02 15:29 | Outpatient (CLI) | payer MEDICARE, SELFPAY ==
[2024-09-02 18:50] LABS: Phenytoin (Dilantin) 30.1 ug/ml (10-20)
== END 2024-09-02 23:59 | disposition home or self-care (01) ==
LOC: LAB 15:31
PROVIDERS: PCP Internal Medicine; Visit Provider Internal Medicine
DX: G40.909 Epilepsy, unspecified, not intractable, without status epilepticus (principal); Z79.899 Other long term (current) drug therapy
CPT/HCPCS: 36415; 80185

== ENCOUNTER 2024-09-13 11:55 | Outpatient (CLI) | payer MEDICARE, SELFPAY ==
[2024-09-13 17:48] LABS: Phenytoin (Dilantin) 16.9 ug/ml (10-20)
== END 2024-09-13 23:59 | disposition home or self-care (01) ==
LOC: LAB.DROPOF 09-14 12:56
PROVIDERS: PCP Internal Medicine; Visit Provider Internal Medicine
DX: G40.909 Epilepsy, unspecified, not intractable, without status epilepticus (principal)
CPT/HCPCS: 80185

== ENCOUNTER 2024-09-15 08:56 | Outpatient (CLI) | payer MEDICARE, SELFPAY ==
--- NOTE | 2024-09-15 08:59 | XR_ITS ---
FINAL REPORT TECHNIQUE: Bone densitometry calculations of the lumbar spine and left hip were obtained. CLINICAL HISTORY: Stable burst fracture of T11-T12 vertebra COMPARISON: None FINDINGS: Using L1-4, the bone mineral density of the spine is 0.852 g/cm2, corresponding to T-score of -2.2. Using the left hip, the bone mineral density of the femoral neck is 0.457 g/cm2, corresponding to a T-score of -3.5. Using the right hip, the bone mineral density of the right femoral neck measures 0.437 g/cm?, corresponding to a T-score of -3.6. NOTE: T-score: Standard deviation compared with peak bone mass of young adult mean. *Following the recommendations of the International Society of Bone Densitometry, classification of hip BMD is based on the lower of two T-scores; total hip or femoral neck. IMPRESSION: Osteoporosis: Lowest T-score is at or below -2.5. This patient's T-score meets the World Health Organization criteria for osteoporosis. Reviewed, Interpreted and Dictated by Deandra Cruz MD Transcribed by Nereiad Madrigal Authenticated and [facility]
== END 2024-09-15 23:59 | disposition home or self-care (01) ==
LOC: RAD 08:57
PROVIDERS: PCP Internal Medicine; Visit Provider Nurse Practitioner Family
DX: M81.0 Age-related osteoporosis without current pathological fracture (principal); S22.081A Stable burst fracture of T11-T12 vertebra, initial encounter for closed fracture
CPT/HCPCS: 77080

== ENCOUNTER 2024-09-30 14:11 | Outpatient (POV) | payer MEDICARE, SELFPAY ==
[2024-09-30 15:07] VITALS: BP 128/77; PULSE 74; RESP 18; O2SAT 100
--- NOTE | 2024-09-30 15:47 | A.OFFVIS_ITS ---
[facility] Disclaimer: The information contained in this section may have been updated after the patient was seen, as this information can be updated by other users. Medical History History of seizures Thyroid cancer Surgical History History of ankle surgery History of colon resection Family History Other Family history of cancer Social History Smoking Status: Never smoker alcohol intake: never substance use type: denies use current occupational status: other Travel in the last 8 weeks: None household members: none housing: house current occupation: [employer] caffeine: Yes PM Subjective & Objective Subjective Subjective:: Patient is a pleasant 69-year-old male who presents today for follow-up of his DEXA scan. Today he rates his pain at a 4 5 out of 10. He denies any new trauma or injury. He does state that he still has the chronic back pain that is worse with increased activity or ambulation. Patient does have chronic compression fractures there in his thoracic spine of T4, T5 and T12. His Hira has been reviewed and is appropriate. Review of Systems: General: No recent weight changes, no fever, no sleep disturbances Respiratory: No cough, no shortness of air, no recurring pulmonary infections Cardiovascular/peripheral vascular: No chest pain, no palpitations, no edema, no shortness of breath Gastrointestinal: No new onset incontinence, normal bowel movements reported Genitourinary: No new onset incontinence Musculoskeletal: Chronic mid back pain Psychiatric: [Normal mood/affect] Neurological: [Denies weakness in extremities], [denies balance issues] Pain at rest (0-10 scale): 4 Objective Objective:: Physical Exam: General: Alert and oriented x3, no acute distress, pleasant and cooperative Lungs: Respirations even and unlabored, symmetrical chest expansion Eyes: PERRL Musculoskeletal: Flexion and extension of thoracic [spine] somewhat guarded secondary to pain, [antalgic gait noted] Neurological: Speech clear, no gross sensory deficit Has patient had previous pain injection?: No Conservative treatment options previously tried: Home exercise plan Length of treatment: Longer than 12 weeks Meds Home Medications and Allergies Home Medications ?Medication ?Instructions ?Recorded ?Confirmed ?Type tamsulosin 0.4 mg capsule 0.4 mg PO HS 06/11/24 09/30/24 History phenytoin sodium extended 100 mg 100 mg PO TID #90 caps 07/02/24 09/30/24 Rx capsule baclofen 5 mg tablet 5 mg PO HS #14 tabs 07/12/24 09/30/24 Rx lidocaine 5 % topical patch 1 patch topical DAILY #30 ea 07/12/24 09/30/24 Rx meloxicam 15 mg tablet 15 mg PO DAILY #14 tabs 08/13/24 09/30/24 Rx levothyroxine 150 mcg capsule 150 mcg PO DAILY #30 caps 09/08/24 09/30/24 Rx New Prescriptions to Start Prescriptions: Allergies Allergy/AdvReac Type Severity Reaction Status Date / Time No Known Allergies Allergy Verified 09/13/24 11:59 Assessment and Plan *Assessment and plan (1) Compression fracture: Status: Acute Category: Medical (2) Thoracic radiculopathy: Status: Acute Category: Medical Code(s): M54.14 - Radiculopathy, thoracic region (3) Degenerative disc disease, thoracic: Status: Acute Category: Medical Code(s): M51.34 - Other intervertebral disc degeneration, thoracic region Plan I did review over with the patient regarding his DEXA scan that did show osteoporosis. I have recommended that him to follow-up with primary care and get started on a medication to minimize additional progression. I did also discuss with the patient if they were unable to get in with her primary care or that they were not prescribing something to please let our office know and I am happy to send in a medication for osteoporosis. Patient and his sister do agree with this. I did also discuss with the patient due to his chronic compression fractures and osteoporosis I do believe he would be a beneficial candidate of a intrathecal pain pump trial. Risk and benefits were discussed with the patient and he would like to proceed forward with this plan of care. I will order the patient a psychological evaluation and if he is deemed an appropriate candidate we will proceed forward with the pump trial at a later date. Patient agrees with this plan of care. He will return to clinic in 1 month. Patient has been instructed to contact the clinic with any concerns before the next appointment. Dr. Bronson has reviewed this note and agrees with this plan of care. This note was dictated using voice recognition software and make contain errors or omissions. All injections are used with Lidocaine, Bupivacaine and Depo Medrol. Occasionally urine drug screen is needed to verify patient's compliance with our office pain contract. This is ordered based off specific treatments related to chronic pain with the potential to abuse certain medications.
== END 2024-09-30 23:59 | disposition home or self-care (01) ==
LOC: SC.PAIN 14:13
PROVIDERS: PCP Internal Medicine; Visit Provider Nurse Practitioner Family
DX: M51.14 Intervertebral disc disorders with radiculopathy, thoracic region (principal); M48.54XA Collapsed vertebra, not elsewhere classified, thoracic region, initial encounter for fracture
CPT/HCPCS: 99212; G0463

== ENCOUNTER 2024-11-02 11:17 | Outpatient (CLI) | payer MEDICARE, SELFPAY ==
[2024-11-02 09:54] LABS: Thyroid Stimulating Hormone < 0.02 uIU/mL (0.465-4.68)
== END 2024-11-02 23:59 | disposition home or self-care (01) ==
LOC: LAB.DROPOF 11:18
PROVIDERS: PCP Internal Medicine; Visit Provider Internal Medicine
DX: M81.0 Age-related osteoporosis without current pathological fracture (principal); E05.90 Thyrotoxicosis, unspecified without thyrotoxic crisis or storm
CPT/HCPCS: 82652; 84443

== ENCOUNTER 2024-11-15 14:11 | Outpatient (POV) | payer MEDICARE, SELFPAY ==
[2024-11-15 14:46] VITALS: BP 114/76; PULSE 74; RESP 14; O2SAT 100; BMI 21.4
--- NOTE | 2024-11-15 16:15 | EXP.PAIN.SOA ---
[facility] Disclaimer: The information contained in this section may have been updated after the patient was seen, as this information can be updated by other users. Medical History History of seizures Thyroid cancer Surgical History History of ankle surgery History of colon resection Family History Other Family history of cancer Social History Smoking Status: Never smoker alcohol intake: never substance use type: denies use current occupational status: other Travel in the last 8 weeks?: None household members: none housing: house number of children: 0 current occupation: [employer] caffeine: Yes Have you lived/traveled outside US in past 30 days?: No Contact w/someone who lives/traveled outside US past 30 days?: No Exposure to someone with infectious disease in past 14 days?: No Do you have a fever (greater than 100.4 F or 38 C)?: No Have you tested positive for COVID-19?: No Exposed to someone with COVID-19 in past 14 days?: No Do you have a sore throat?: No Do you have a cough?: No Do you have any weakness?: No Do you have any diarrhea?: No Are you experiencing any unusual bleeding?: No Do you have any muscle aches/pain?: No Do you have any abdominal pain?: No Are you experiencing loss of taste or smell?: No PM Subjective & Objective Subjective Subjective:: Patient is a pleasant 69-year-old male who presents today for follow-up of his psychological evaluation. He does rate his pain today at 3 out of 10 while seated however does state that all of his pain gets worse in his mid to low back with walking or prolonged standing. Patient states that the simplest activities affects his ability perform activities of daily living and that he frequently has to stop and take multiple breaks due to the worsening pain symptoms. Patient does have a longstanding history of chronic compression fractures throughout his thoracic spine including T4, T5 and T12. Patient does state today he would like to proceed forward with the pump trial. His Hira has been reviewed and is appropriate. Review of Systems: General: No recent weight changes, no fever, no sleep disturbances Respiratory: No cough, no shortness of air, no recurring pulmonary infections Cardiovascular/peripheral vascular: No chest pain, no palpitations, no edema, no shortness of breath Gastrointestinal: No new onset incontinence, normal bowel movements reported Genitourinary: No new onset incontinence Musculoskeletal: Chronic mid back pain Psychiatric: [Normal mood/affect] Neurological: [Denies weakness in extremities], [denies balance issues] Pain at rest (0-10 scale): 3 Objective Objective:: Physical Exam: General: Alert and oriented x3, no acute distress, pleasant and cooperative Lungs: Respirations even and unlabored, symmetrical chest expansion Eyes: PERRL Musculoskeletal: Flexion and extension of thoracic [spine] somewhat guarded secondary to pain, [antalgic gait noted] Neurological: Speech clear, no gross sensory deficit Has patient had previous pain injection?: No Conservative treatment options previously tried: Home exercise plan Length of treatment: Longer than 12 weeks Meds Home Medications and Allergies Home Medications ?Medication ?Instructions ?Recorded ?Confirmed ?Type tamsulosin 0.4 mg capsule 0.4 mg PO HS 06/11/24 11/15/24 History phenytoin sodium extended 100 mg 100 mg PO TID #90 caps 07/02/24 11/15/24 Rx capsule baclofen 5 mg tablet 5 mg PO HS #14 tabs 07/12/24 11/15/24 Rx lidocaine 5 % topical patch 1 patch topical DAILY #30 ea 07/12/24 11/15/24 Rx meloxicam 15 mg tablet 15 mg PO DAILY #14 tabs 08/13/24 11/15/24 Rx alendronate 70 mg tablet 70 mg PO WEEKLY For osteoporosis 09/30/24 11/15/24 Rx #12 tabs levothyroxine 125 mcg capsule 125 mcg PO DAILY #30 caps 11/02/24 11/15/24 Rx New Prescriptions to Start Prescriptions: Allergies Allergy/AdvReac Type Severity Reaction Status Date / Time No Known Allergies Allergy Verified 09/13/24 11:59 Assessment and Plan *Assessment and plan (1) Compression fracture: Status: Acute Category: Medical (2) Degenerative disc disease, thoracic: Status: Acute Category: Medical Code(s): M51.34 - Other intervertebral disc degeneration, thoracic region (3) Thoracic radiculopathy: Status: Acute Category: Medical Code(s): M54.14 - Radiculopathy, thoracic region (4) Burst fracture of T12 vertebra: Status: Acute Category: Medical Code(s): S22.081A - Stable burst fracture of T11-T12 vertebra, initial encounter for closed fracture Plan I did review over with the patient that he was deemed an appropriate candidate from the psychological evaluation. I did review over the risk and benefits of this procedure and he would like to proceed forward with this plan of care. Patient has tried and failed conservative therapy including oral medication, heat and ice, topicals, at home stretching and exercise for longer than 12 weeks. Patient does have a longstanding history of chronic compression fractures and osteoporosis and is not a surgical candidate at this time. We will submit to insurance for the intrathecal pump trial under fluoroscopy. Patient and his sister did discuss that if they needed to they would go to the [place] in order to get in for this procedure sooner. Patient has been instructed to contact the clinic with any concerns before the next appointment. Dr. Bronson has reviewed this note and agrees with this plan of care. This note was dictated using voice recognition software and make contain errors or omissions. All injections are used with Lidocaine, Bupivacaine and dexamethasone. Occasionally urine drug screen is needed to verify patient's compliance with our office pain contract. This is ordered based off specific treatments related to chronic pain with the potential to abuse certain medications.
== END 2024-11-15 23:59 | disposition home or self-care (01) ==
LOC: SC.PAIN 14:12
PROVIDERS: PCP Internal Medicine; Visit Provider Nurse Practitioner Family
DX: M51.34 Other intervertebral disc degeneration, thoracic region (principal); M51.14 Intervertebral disc disorders with radiculopathy, thoracic region; S22.081A Stable burst fracture of T11-T12 vertebra, initial encounter for closed fracture; X58.XXXA Exposure to other specified factors, initial encounter; Y93.F9 Activity, other caregiving; Y92.9 Unspecified place or not applicable
CPT/HCPCS: 99212; G0463

== ENCOUNTER 2024-12-24 09:35 | Day surgery (SDC) | payer MEDICARE, SELFPAY ==
[2024-12-24 09:43] VITALS: BP 129/80; PULSE 75; RESP 18; O2SAT 97; BMI 20.8
[2024-12-24] MEDS: LIDOCAINE 1% 30ML PF VIAL 30 ML (10:32)
[2024-12-24] MEDS: FENTANYL 100MCG/2ML VIAL 100 MCG (10:32)
[2024-12-24 10:33] VITALS: BP 112/67; PULSE 81; RESP 18; O2SAT 100
[2024-12-24 10:34] VITALS: BP 112/67; PULSE 78; RESP 18; O2SAT 100
[2024-12-24 10:40] VITALS: BP 160/99; PULSE 72; RESP 18; O2SAT 96
--- NOTE | 2024-12-24 11:00 | PC.NURSE ---
PT ambulating with rep
[2024-12-24 11:35] VITALS: BP 142/82; PULSE 76; RESP 18; O2SAT 98
--- NOTE | 2024-12-24 11:35 | PC.NURSE ---
pt comfortable, states pain 0/10
--- NOTE | 2024-12-24 11:57 | PC.NURSE ---
DR MORTENSEN SPEAKING TO PT IN ROOM
[2024-12-24 12:00] VITALS: BP 145/77; PULSE 72; RESP 18; O2SAT 99
--- NOTE | 2024-12-24 14:02 | EXP.PAIN.PRO ---
Procedure Date: 12/24/24 Time: 14:02 Anesthesiologist:: Curry Bronson MD Complications:: None Pre-procedure Diagnosis:: Degenerative disc disease of the thoracic and lumbar spine with thoracic compression fractures and lumbar radiculopathy Post-procedure Diagnosis:: Same Indications for Procedure:: The patient is a pleasant 69-year-old white male who has increasing mid low back pain with lumbar radicular symptoms. He has multiple thoracic compression fractures. These are all chronic. He has failed all previous conservative treatments including injections, oral medications, physical therapy and he is not a candidate for surgery. He has had a successful psychological evaluation. He presents for intrathecal pump trial today. Procedure Details:: Pain pump trial Informed consent was obtained and the risk and benefits of the procedure was explained to the patient. The patient was taken to the procedure room and placed prone on the procedure table. Patient was prepped and draped in sterile fashion. C-arm fluoroscopy was used to view the lumbar spine. The skin and subcutaneous tissues were anesthetized using lidocaine. I placed a 18-gauge spinal needle into the L4-5 interspace and advanced until clear CSF was obtained. After this intrathecal catheter was inserted and advanced very easily to the L1 vertebral body. The needle was withdrawn. We were able to freely withdraw clear CSF through the catheter. We then injected intrathecal opioid single shot bolus of 25 mcg followed by saline and followed by the previous CSF that was withdrawn. The needle and catheter were then removed and a Band-Aid was placed. Patient tolerated the procedure well with no complications. We reevaluated the patient after 30 minutes to 1 hour. Patient had 90 to 100% relief in pain symptoms. He was walking better and standing better. He is much more functional. Patient was discharged home neurologic intact with good relief of pain symptoms.. Plan and Disposition:: Will follow-up with this patient in 1 week to assess efficacy of this intrathecal pain pump trial. If successful we will plan on permanent placement with intrathecal morphine 1 mg/mL to start at 100 mcg/day. Catheter tip will be at the T8 vertebral body.
== END 2024-12-24 12:00 | disposition home or self-care (01) ==
LOC: SC.PAINP 09:36
PROVIDERS: PCP Internal Medicine; Visit Provider Anesthesiology
DX: G89.4 Chronic pain syndrome (principal); M51.34 Other intervertebral disc degeneration, thoracic region; M51.16 Intervertebral disc disorders with radiculopathy, lumbar region; M48.54XA Collapsed vertebra, not elsewhere classified, thoracic region, initial encounter for fracture; M54.50 Low back pain, unspecified; F17.220 Nicotine dependence, chewing tobacco, uncomplicated; Z79.899 Other long term (current) drug therapy; Z85.850 Personal history of malignant neoplasm of thyroid; Z79.890 Hormone replacement therapy
CPT/HCPCS: 62323; J0690; J2003; J3010

== ENCOUNTER 2024-12-29 15:18 | Outpatient (POV) | payer MEDICARE, SELFPAY ==
--- OUTSIDE RECORDS SUMMARY | 2024-12-29 15:23 | XMS_ITS | Clinical Summary ---
Author Organization [facility] Address [facility] [place] [address] Care Team Providers Care Denture Waxer Name Role Phone Stevo Beard MD Primary Care Provider [phone] Family History Medical History Relation Name Comments Breast cancer Mother Lung cancer Mother Breast cancer Paternal Grandmother Relation Name Status Comments Mother Paternal Grandmother Social History Tobacco Use Types Packs/Day Years Used Date Smoking Tobacco: Every Day Alcohol Use Standard Drinks/Week Comments No 0 (1 standard drink = 0.6 oz pur e alcohol) Sex and Gender Information Value Date Recorded Sex Assigned at Not on file Legal Sex Male 8:10 PM EDT Gender Identity Not on file Sexual Orientation Not on file Last Filed Vital Signs Vital Sign Reading Time Taken Comments Blood Pressure - - Pulse - - Temperature - - Respiratory Rate - - Oxygen Saturation - - Inhaled Oxygen Concentration - - Weight 71.2 kg (157 lb 0.2 oz) 05/09/2014 2:41 P M EST Height 180.3 cm (5' 11 ) 05/09/2014 2:41 PM EST Body Mass Index 21.9 05/09/2014 2:41 PM EST Plan of Treatment Not on file Care Teams Denture Waxer Relationship Specialty Start Date End Date Stevo Beard MD [facility] [address] [place] [address] PCP - General 10/27/20
[2024-12-29 15:51] VITALS: BP 136/83; PULSE 70; RESP 18; O2SAT 100; BMI 22.5
--- NOTE | 2024-12-29 15:54 | A.OFFVIS_ITS ---
[facility] Disclaimer: The information contained in this section may have been updated after the patient was seen, as this information can be updated by other users. Medical History History of seizures Thyroid cancer Surgical History History of ankle surgery History of colon resection Family History Other Family history of cancer Social History Smoking Status: Never smoker alcohol intake: never substance use type: denies use current occupational status: other Travel in the last 8 weeks?: None household members: none housing: house number of children: 0 current occupation: [employer] caffeine: Yes Have you lived/traveled outside US in past 30 days?: No Contact w/someone who lives/traveled outside US past 30 days?: No Exposure to someone with infectious disease in past 14 days?: No Do you have a fever (greater than 100.4 F or 38 C)?: No Have you tested positive for COVID-19?: No Exposed to someone with COVID-19 in past 14 days?: No Do you have a sore throat?: No Do you have a cough?: No Do you have any weakness?: No Do you have any diarrhea?: No Are you experiencing any unusual bleeding?: No Do you have any muscle aches/pain?: No Do you have any abdominal pain?: No Are you experiencing loss of taste or smell?: No PM Subjective & Objective Subjective Subjective:: Patient is a pleasant 69-year-old male who presents today for follow-up of his intrathecal pump trial. He does state that he did have significant relief with at least 90 to 100% improvement that did last well until midday on Friday. Patient did feel like his movements were easier and he was able to walk for longer periods of time without having pain. Patient states he did not feel like he had to stop and take as many breaks. Patient was able to do multiple flights of steps and stand for prolonged periods for at least 10 minutes. Patient did even spend a lot of time trying multiple exercises and activities to really put the pump to its test. He does state overall he felt it was very beneficial and would like to proceed forward with the pump implant. Patient does have a longstanding history of chronic back pain with multiple thoracic compression fractures. Patient states this was the best he has felt for some time. His Hira has been reviewed and is appropriate. Review of Systems: General: No recent weight changes, no fever, no sleep disturbances Respiratory: No cough, no shortness of air, no recurring pulmonary infections Cardiovascular/peripheral vascular: No chest pain, no palpitations, no edema, no shortness of breath Gastrointestinal: No new onset incontinence, normal bowel movements reported Genitourinary: No new onset incontinence Musculoskeletal: Chronic mid back pain, compression fractures Psychiatric: [Normal mood/affect] Neurological: [Denies weakness in extremities], [denies balance issues] Pain at rest (0-10 scale): 5 Objective Objective:: Physical Exam: General: Alert and oriented x3, no acute distress, pleasant and cooperative Lungs: Respirations even and unlabored, symmetrical chest expansion Eyes: PERRL Musculoskeletal: Flexion and extension of thoracic [spine] somewhat guarded secondary to pain, [antalgic gait noted] Neurological: Speech clear, no gross sensory deficit Has patient had previous pain injection?: Yes Percent improvement in pain since last injection: 90 to 100% Conservative treatment options previously tried: Home exercise plan Length of treatment: Longer than 12 weeks Meds Home Medications and Allergies Home Medications ?Medication ?Instructions ?Recorded ?Confirmed ?Type phenytoin sodium extended 100 mg 100 mg PO TID #90 cap s 07/02/24 12/29/24 Rx capsule baclofen 5 mg tablet 5 mg PO HS #14 tabs 07/12/24 12/29/24 Rx lidocaine 5 % topical patch 1 patch topical DAILY #30 ea 07/12/24 12/29/24 Rx meloxicam 15 mg tablet 15 mg PO DAILY #14 tabs 02/02/0712/29/24 Rx alendronate 70 mg tablet 70 mg PO WEEKLY For osteopor osis 09/30/24 12/29/24 Rx #12 tabs levothyroxine 125 mcg capsule 125 mcg PO DAILY #30 cap s 11/02/24 12/29/24 Rx tamsulosin 0.4 mg capsule See Rx Instructions .Route 0 12/01/24 12/29/24 Rx .COMPLEX #90 caps New Prescriptions to Start Prescriptions: Allergies Allergy/AdvReac Type Severity Reaction Status Date / Time No Known Allergies Allergy Verified 09/13/24 11:59 Assessment and Plan *Assessment and plan (1) Osteoporosis: Status: Acute Category: Medical Code(s): M81.0 - Age-related osteoporosis without current pathological fracture (2) Compression fracture: Status: Acute Category: Medical (3) Degenerative disc disease, thoracic: Status: Acute Category: Medical Code(s): M51.34 - Other intervertebral disc degeneration, thoracic region (4) Thoracic radiculopathy: Status: Acute Category: Medical Code(s): M54.14 - Radiculopathy, thoracic region Plan Patient did have a very successful intrathecal pump trial with significant improvement of at least 90 to 100% relief. Patient does have a longstanding history of chronic compression fractures with osteoporosis. I did review over with him the risk and benefits of the intrathecal pump trial versus implant procedure and he would like to proceed forward with the implant. Patient has tried and failed conservative therapy including oral medication, heat and ice, topicals, physical therapy and at home stretching exercise for longer than 12 weeks. We will plan on implanting the catheter at the T8 vertebral body with a starting off intrathecal dose of morphine 1 mg/mL with 100 mcg/day. Patient agreed with this plan of care. Patient has tried oral pain medications in the past and did not like how they made him feel. Patient is not a candidate for surgery due to his osteoporosis. Patient does have a signed agreement that if we proceed forward with the intrathecal pump that there will be a decrease in oral pain medications if this is applicable with the overall goal 2-no oral opioids once the intrathecal pain pump is established. Prior to the intrathecal trial patient was on a fixed schedule with his medications and patient has been compliant with her medication regimen. We will submit for the intrathecal pain pump implant. Our database development project manager is out of the office today and I did discuss with patient that most likely it would be February before we would be able to get him on our schedule. They acknowledge understanding agree with this plan of care. We will have our database development project manager reach out with a tentative date. Patient has been instructed to contact the clinic with any concerns before the next appointment. Dr. Bronson has reviewed this note and agrees with this plan of care. This note was dictated using voice recognition software and make contain errors or omissions. All injections are used with Lidocaine, Bupivacaine and dexamethasone. Occasionally urine drug screen is needed to verify patient's compliance with our office pain contract. This is ordered based off specific treatments related to chronic pain with the potential to abuse certain medications.
== END 2024-12-29 23:59 | disposition home or self-care (01) ==
LOC: SC.PAIN 15:21
PROVIDERS: PCP Internal Medicine; Visit Provider Nurse Practitioner Family
DX: M80.08XA Age-related osteoporosis with current pathological fracture, vertebra(e), initial encounter for fracture (principal); M51.14 Intervertebral disc disorders with radiculopathy, thoracic region
CPT/HCPCS: 99212; G0463

== ENCOUNTER 2025-02-18 10:49 | Outpatient (CLI) | payer MEDICARE, SELFPAY ==
[2025-02-18 08:13] VITALS: BMI 19.9
--- OUTSIDE RECORDS SUMMARY | 2025-02-18 10:52 | XMS_ITS | Clinical Summary ---
Author Organization [facility] Address [address] [place] [address] Care Team Providers Care Edge Stainer Name Role Phone Stevo Beard MD Primary Care Provider [phone] Family History Medical History Relation Name Comments [...] of Treatment Not on file Care Teams Edge Stainer Relationship Specialty Start Date End Date Stevo Beard MD [facility] [address] [place] [address] PCP - General 10/27/20
--- NOTE | 2025-02-18 11:15 | ECG_ITS ---
APPROVED REPORT Exam: Resting ECG HR:83 bpm ECG Measurements Heart Rate 83 AXES QRSd 85 QRS 70 QT 355 T 67 QTc 395 Conclusion SUPRAVENTRICULAR RHYTHM ABNORMAL RHYTHM ECG UNCONFIRMED REPORT Electronically signed by : Rajesh Napoles MD 02/21/2025 14:34:16
[2025-02-18 11:26] LABS: Hematocrit 38.3 % (42.0-52.0); Hemoglobin 13.6 g/dL (14.1-18.0); Immature Granulocytes % 0.5 %; Mean Corpuscular HGB Conc 35.5 g/dL (31.8-35.4); Mean Corpuscular Hemoglobin 32.8 pg (27.0-31.2); Mean Corpuscular Volume 92.3 fl (80-94); Nucleated Red Blood Cells % 0 %; Platelet Count 143 K/mm3 (142-424); Red Blood Count 4.15 M/mm3 (4.60-6.20); Red Cell Distribution Width-SD 43.0 fL; White Blood Count 6.3 K/mm3 (4.8-10.8)
[2025-02-18 11:54] LABS: Blood Urea Nitrogen 10 mg/dl (9-20); Calcium 8.9 mg/dl (8.4-10.2); Carbon Dioxide 25 mmol/L (22.0-30.0); Creatinine Clearance Estimated 63 mL/min (50-200); Creatinine,Serum 0.80 mg/dl (0.66-1.25); Estimated Glomerular Filt Rate 96 ml/min (>60); GFR (African American) 116 ML/MIN (>60); Glucose 97 mg/dl (74-100)
[2025-02-18 13:21] LABS: Chloride 105 mmol/L (98-107)
[2025-02-18 13:22] LABS: Anion Gap 8.9 mEq/L (5-15); Potassium 3.9 mmoL/L (3.5-5.1); Sodium 135 mmol/L (136-145)
== END 2025-02-18 23:59 | disposition home or self-care (01) ==
LOC: PREOP 10:50
PROVIDERS: PCP Internal Medicine; Visit Provider Anesthesiology
DX: Z01.810 Encounter for preprocedural cardiovascular examination (principal); Z01.812 Encounter for preprocedural laboratory examination; Z01.818 Encounter for other preprocedural examination; I49.8 Other specified cardiac arrhythmias; R94.31 Abnormal electrocardiogram [ECG] [EKG]
CPT/HCPCS: 80048; 85025; 93005

== ENCOUNTER 2025-02-25 06:02 | Day surgery (SDC) | payer MEDICARE, SELFPAY ==
--- NOTE | 2025-02-18 09:46 | SUR.PREOP ---
Pt no show for PAT appointment. VM left. Office notified.
[2025-02-18 13:26] VITALS: BMI 19.9
[2025-02-25] MEDS: LACTATED RINGERS 1000ML 1,000 ML 25 ML IV (06:16)
[2025-02-25 06:19] VITALS: BP 117/80; PULSE 84; RESP 18; TEMP 36.3; O2SAT 98
--- NOTE | 2025-02-25 06:40 | EXP.ANES.CKL ---
[facility] Disclaimer: The information contained in this section may have been updated after the patient was seen, as this information can be updated by other users. Medical History History of subdural hematoma Deafness in left ear History of seizures Thyroid cancer Surgical History History of ankle surgery History of colon resection Family History Other Family history of cancer Family history of heart disease Social History Smoking Status: Never smoker alcohol intake: never substance use type: denies use current occupational status: retired Travel in the last 8 weeks?: None household members: none housing: house number of children: 0 current occupation: [employer] caffeine: Yes Have you lived/traveled outside US in past 30 days?: No Contact w/someone who lives/traveled outside US past 30 days?: No Exposure to someone with infectious disease in past 14 days?: No Do you have a fever (greater than 100.4 F or 38 C)?: No Have you tested positive for COVID-19?: No Exposed to someone with COVID-19 in past 14 days?: No Do you have a sore throat?: No Do you have a cough?: No Do you have any weakness?: No Do you have any diarrhea?: No Are you experiencing any unusual bleeding?: No Do you have any muscle aches/pain?: No Do you have any abdominal pain?: No Are you experiencing loss of taste or smell?: No [facility] Anesthesia Checklist Patient Identification Patient Identification: Arm Band and Family Structural Data Admitted From: Home Planned Operative Procedure/s: Pain pump Consent for Planned Operative Procedure(s) Verified: Yes Verified Documents: Surgical Consent and History and Physical NPO Status Verified Time NPO: 00:00 Additional verifications Patient : No Anesthesia Reactions: No Hx Blood Transfusions: No Blood Transfusion Reaction: No Cephalosporin Allergy: No Previous Colonoscopy: Yes Airway Assessment Mallampati Score:: Class II C-Spine Mobility Assessed: Yes TMJ Mobility Assessed: Yes Dentition: Good Dentition Neurological Assessment Level of Consciousness: Awake, Alert, Appropriate and Follows Commands Hx Seizures: Yes Numbness or tingling in extremities: No Anesthesia Plan Anesthesia Risk discussed: Yes ASA Class: II Anesthesia Type: MAC
[2025-02-25] MEDS: CEFAZOLIN SODIUM 1GM ADV 1 GM IV (08:10)
[2025-02-25] MEDS: SODIUM CHLORIDE 0.9% 20ML VIAL 40 ML IV (08:24)
[2025-02-25] MEDS: GENTAMICIN 80 MG/2 ML VIAL (08:24)
[2025-02-25] MEDS: LIDOCAINE 1% W/EPI 1:100,000 20ML VIAL 20 ML (08:24)
[2025-02-25 09:22] VITALS: BP 117/74; PULSE 92; RESP 18; TEMP 36.2; O2SAT 96
[2025-02-25 09:32] VITALS: BP 109/70; PULSE 65; RESP 18; TEMP 36.2; O2SAT 98
[2025-02-25 09:42] VITALS: BP 116/78; PULSE 78; RESP 18; TEMP 36.2; O2SAT 97
[2025-02-25 09:52] VITALS: BP 115/74; PULSE 74; RESP 18; TEMP 36.2; O2SAT 74
--- NOTE | 2025-02-25 10:06 | EXP.OP.NOTE ---
Date of procedure: 02/25/25 Pre-op Diagnosis:: Degenerative disease of lumbar spine with lumbar radiculopathy symptoms and multiple compression fractures throughout the lumbar spine Post-op Diagnosis:: Same Procedure performed:: Pertinent placement intrathecal pain pump with tunneled intrathecal catheter and pain pump generator placement Surgeon:: Curry Bronson MD BENCH LOOM WEAVER:: Yousif Anne Anesthesia: MAC Estimated blood loss (mL): 25 Clinical Note:: This patient is a pleasant 69-year-old white male who has increasing low back pain with lumbar radicular symptoms with degenerative disease of lumbar spine and multiple compression fractures throughout the lumbar spine. He has failed all previous conservative treatments including injections, oral medications, physical therapy and he is not a candidate for surgery. He has had a successful psychological evaluation and a successful intrathecal pump trial. He presents for permanent placement of his intrathecal pain pump today. Operative findings:: None Operative note:: Informed consent was obtained risk and benefits of the procedure were explained to the patient. The patient was taken the operating room placed prone on the procedure table. He was prepped and draped in sterile fashion. C-arm fluoroscopy was used to view the right flank. [place] between the 12th rib and iliac crest the skin and subtenons tissues were anesthetized using lidocaine. I made incision dissected out the pump generator pocket. C-arm fluoroscopy was then used to view the lumbar spine. The skin and subtendinous tissues adjacent to the L4-5 and L5-S1 interspace were anesthetized using lidocaine. I made an incision dissected down to the lumbar paraspinous fascia. A 17-gauge spinal needle was inserted and advanced into the L4-5 interspace until clear CSF was obtained. After this intrathecal catheter was inserted and advanced very easily to the T10 vertebral body. We were unable to advance any further because of kinking of the catheter. The catheter was found to be in good position it was posterior and midline. The stylette of the catheter and the needle were withdrawn. The catheter was secured to the fascia with an anchoring device and 2-0 Prolene. I filled the pump with 20 mL of intrathecal morphine 1 mg/mL. I tunneled the catheter from the back to the generator pocket. I attached catheter to the pump generator. We are able to free withdraw clear CSF through the sideport. The pump was then placed in the pocket with an antibiotic pouch. We did use Surgicel for bleeding and the pump generator pocket. Both incisions were then closed with 2-0 Vicryl followed by 4-0 nylon and carlos. The patient tolerated the procedure well no complications. Pump was interrogated and started at 50 mcg/day of intrathecal morphine. Patient was discharged home neurologic intact with good relief of pain symptoms. Plan and disposition: Will follow-up with this patient in 1 week for wound check and reprogramming. Will follow-up in 2 to 3 weeks for suture and staple movable. Condition: stable Disposition: PACU Complications:: None
--- NOTE | 2025-02-25 10:30 | EXP.HP ---
History of Present Illness *Admission Date: 02/25/25 *Reason for visit:: Permanent placement intrathecal pain pump *History of present illness: This patient presents for permanent placement of his intrathecal pain pump for degenerative disease of lumbar spine with lumbar radiculopathy symptoms and multiple compression fractures. [facility] Disclaimer: The information contained in this section may have been updated after the patient was seen, as this information can be updated by other users. Medical History (Updated 02/25/25 @ 10:33 by Curry Bronson MD) History of subdural hematoma Deafness in left ear History of seizures Thyroid cancer Surgical History History of ankle surgery History of colon resection Family History Family history of heart disease Family history of cancer Social History Smoking Status: Never smoker alcohol intake: never substance use type: denies use current occupational status: retired Travel in the last 8 weeks?: None household members: none housing: house number of children: 0 current occupation: [employer]: Yes Have you lived/traveled outside [place] in past 30 days?: No Contact w/someone who lives/traveled outside [place] past 30 days?: No Exposure to someone with infectious disease in past 14 days?: No Do you have a fever (greater than 100.4 F or 38 C)?: No Have you tested positive for COVID-19?: No Exposed to someone with COVID-19 in past 14 days?: No Do you have a sore throat?: No Do you have a cough?: No Do you have any weakness?: No Do you have any diarrhea?: No Are you experiencing any unusual bleeding?: No Do you have any muscle aches/pain?: No Do you have any abdominal pain?: No Are you experiencing loss of taste or smell?: No Other Medical History Have you received the Flu Vaccine for this season: Yes Have you received the Pneumonia Vaccine: No Review of Systems Review of Systems Review of systems:: pertinent systems reviewed and negative unless documented below Meds Home Medications and Allergies Home Medications ?Medication ?Instructions ?Recorded ?Confirmed ?Type phenytoin sodium extended 100 mg 100 mg PO TID #90 caps 07/02/24 02/18/25 Rx capsule alendronate 70 mg tablet 70 mg PO WEEKLY For osteoporosis 09/30/24 02/18/25 Rx #12 tabs levothyroxine 125 mcg capsule 125 mcg PO DAILY #30 caps 11/02/24 02/18/25 Rx tamsulosin 0.4 mg capsule See Rx Instructions .Route 12/01/24 02/18/25 Rx .COMPLEX #90 caps sulfamethoxazole 800 1 tab PO BID #10 tabs 02/25/25 Rx mg-trimethoprim 160 mg tablet (Bactrim DS) New Prescriptions to Start Prescriptions: Allergies Allergy/AdvReac Type Severity Reaction Status Date / Time No Known Allergies Allergy Verified 09/13/24 11:59 Exam Data for Last 24 hours Vital signs and Labs for Last 24 Hours: Temp Pulse Resp BP Pulse Ox O2 Del Method 97.2 F L 74 18 115/74 74 L Room Air 02/25/25 09:52 02/25/25 09:52 02/25/25 09:52 02/25/25 09:52 02/25/25 09:52 02/25/25 09:52 *Routine HEENT Exam Head: Present normocephalic Eye: Present normal accommodation ENT: Present mucous membranes moist *Routine Respiratory Exam Respiratory: Present normal respiratory effort *Routine Cardiovascular Exam Cardiovascular: Present RRR *Routine Abdominal Exam Abdominal: Present soft *Routine Rectal Exam Rectal:: deferred *Routine Genitalia Exam Genitalia:: deferred Routine Back/Spine/Pelvis Exam Back/Spine: Present paraspinal tenderness and vertebral tenderness H&P: Result Impressions Degenerative disease of lumbar spine with lumbar radiculopathy symptoms Assessment and Plan *Assessment and plan (1) Degenerative disc disease, thoracic: Status: Acute Category: Medical Code(s): M51.34 - Other intervertebral disc degeneration, thoracic region (2) Burst fracture of T12 vertebra: Status: Acute Category: Medical Code(s): S22.081A - Stable burst fracture of T11-T12 vertebra, initial encounter for closed fracture (3) Lumbar radicular pain: Status: Acute Category: Medical Code(s): M54.16 - Radiculopathy, lumbar region (4) Compression fracture: Status: Acute Category: Medical Plan Permanent placement intrathecal pain pump
== END 2025-02-25 09:52 | disposition home or self-care (01) ==
PROVIDERS: PCP Internal Medicine; Visit Provider Anesthesiology
PROC: (CPT 62350; principal; 2025-02-25 07:30)
DX: M51.14 Intervertebral disc disorders with radiculopathy, thoracic region (principal); S22.081A Stable burst fracture of T11-T12 vertebra, initial encounter for closed fracture; M54.16 Radiculopathy, lumbar region; H91.8X2 Other specified hearing loss, left ear; Z85.850 Personal history of malignant neoplasm of thyroid; Z79.890 Hormone replacement therapy; Z79.899 Other long term (current) drug therapy
CPT/HCPCS: 62350; 62362; 99221; C1755; C1772; J0690; J1580; J2003; J2004; J2250; J2704; J3010; J7120

== ENCOUNTER 2025-03-14 10:00 | Outpatient (CLI) | payer MEDICARE, SELFPAY ==
[2025-03-14 13:32] LABS: Hematocrit 41.4 % (42.0-52.0); Hemoglobin 14.3 g/dL (14.1-18.0); Immature Granulocytes % 0.8 %; Mean Corpuscular HGB Conc 34.5 g/dL (31.8-35.4); Mean Corpuscular Hemoglobin 32.6 pg (27.0-31.2); Mean Corpuscular Volume 94.3 fl (80-94); Nucleated Red Blood Cells % 0 %; Platelet Count 205 K/mm3 (142-424); Red Blood Count 4.39 M/mm3 (4.60-6.20); Red Cell Distribution Width-SD 43.9 fL; White Blood Count 3.8 K/mm3 (4.8-10.8)
[2025-03-14 14:10] LABS: Alanine Aminotransferase 18 U/L (12-78); Albumin Level 3.9 g/dl (3.5-5.0); Albumin/Globulin Ratio 1.3 (1.1-1.8); Alkaline Phosphatase 161 U/L (38-126); Anion Gap 11.7 mEq/L (5-15); Aspartate Amino Transferase 26 U/L (17-59); Bilirubin,Total 0.5 mg/dl (0.2-1.3); Blood Urea Nitrogen 7 mg/dl (9-20); Calcium 8.7 mg/dl (8.4-10.2); Carbon Dioxide 28 mmol/L (22.0-30.0); Chloride 98 mmol/L (98-107); Cholesterol 187 mg/dl (140-200); Creatinine,Serum 0.90 mg/dl (0.66-1.25); Estimated Glomerular Filt Rate 84 ml/min (>60); GFR (African American) 102 ML/MIN (>60); Globulin 3.1 g/dL (1.3-3.2); Glucose 84 mg/dl (74-100); HDL Cholesterol 64 mg/dl (40-60); Phenytoin (Dilantin) 8.0 ug/ml (10-20); Potassium 4.7 mmoL/L (3.5-5.1); Sodium 133 mmol/L (136-145); Total Protein,Serum 7.0 g/dl (6.3-8.2); Triglycerides 62 mg/dl (30-150)
[2025-03-14 14:38] LABS: Thyroid Stimulating Hormone 0.33 uIU/mL (0.465-4.68)
--- OUTSIDE RECORDS SUMMARY | 2025-03-15 10:44 | XMS_ITS | Clinical Summary ---
Author Organization [facility] Address [address] [place] [address] Care Team Providers Care Graphite Pan Drier Tender Name Role Phone Stevo Beard MD Primary Care Provider [phone] Family History Medical History Relation Name Comments [...] of Treatment Not on file Care Teams Graphite Pan Drier Tender Relationship Specialty Start Date End Date Stevo Beard MD [facility] [address] [place] [address] PCP - General 10/27/20
== END 2025-03-14 23:59 ==
LOC: LAB.DROPOF 03-15 10:35
PROVIDERS: PCP Internal Medicine; Visit Provider Internal Medicine
DX: G40.909 Epilepsy, unspecified, not intractable, without status epilepticus (principal); E03.9 Hypothyroidism, unspecified; E78.5 Hyperlipidemia, unspecified; M81.0 Age-related osteoporosis without current pathological fracture
CPT/HCPCS: 80053; 80061; 80185; 84443; 85025

== ENCOUNTER 2025-05-06 10:06 | Emergency (ER) | payer MEDICARE, SELFPAY ==
[2025-05-06] VITALS (11 sets, daily range): BP systolic 115–171; BP diastolic 61–104; PULSE 60–87; RESP 11–18; TEMP 36.8; O2SAT 92–98; BMI 19.3
--- NOTE | 2025-05-06 10:19 | ECG_ITS ---
APPROVED REPORT Exam: Resting ECG HR:61 bpm ECG Measurements Heart Rate 61 AXES ID 187 P -3 QRSd 94 QRS 76 QT 378 T 77 QTc 382 Conclusion SINUS RHYTHM NORMAL ECG UNCONFIRMED REPORT Electronically signed by : SAMIRA SPRING, 05/07/2025 15:35:12
--- OUTSIDE RECORDS SUMMARY | 2025-05-06 10:20 | XMS_ITS | Clinical Summary ---
Author Organization [facility] Address [address] [place] [address] Care Team Providers Care Ticket Counter Name Role Phone Stevo Beard MD Primary Care Provider [phone] Family History Medical History Relation Name Comments [...] of Treatment Not on file Care Teams Ticket Counter Relationship Specialty Start Date End Date Stevo Beard MD [facility] [address] [place] [address] PCP - General 10/27/20
--- NOTE | 2025-05-06 10:27 | CT_ITS ---
FINAL REPORT TECHNIQUE: NASCET technique utilized for stenosis evaluation. CLINICAL HISTORY: Dizziness, ANG, vision changes COMPARISON: None FINDINGS: RIGHT CAROTID: There is dense vascular calcification at the right carotid bifurcation with 60% stenosis. LEFT CAROTID: Dense vascular calcification with 60% stenosis. VERTEBRALS: The vertebrals are patent. Right vertebral artery is dominant. No significant stenosis is present. IMPRESSION: Dense vascular calcifications obscuring optimal visualization with about 60% stenosis bilaterally. Reviewed, Interpreted and Dictated by Surjit Camarena MD Transcribed by Rissa Fletcher Authenticated and . [facility]
--- NOTE | 2025-05-06 10:27 | CT_ITS ---
FINAL REPORT TECHNIQUE: thin section axial CT with and without IV contrast supplemented with multiplanar 3-D reconstruction of the head. This study was performed with techniques to keep radiation doses as low as reasonably achievable, (ALARA)individualized dose reduction techniques using automated exposure control or adjustment of mA and/or kV according to the patient's size were employed. CLINICAL HISTORY: Dizziness, ANG, vision changes COMPARISON: None FINDINGS: CTA: The cranial circulation is unremarkable. There is no significant stenosis, aneurysm or occlusion. IMPRESSION: No acute process. Reviewed, Interpreted and Dictated by Surjit Camarena MD Transcribed by Rissa Fletcher Authenticated and [facility]
--- NOTE | 2025-05-06 10:27 | CT_ITS ---
FINAL REPORT TECHNIQUE: multiple axial CT images were performed from the foramen magnum to the vertex without enhancement. CLINICAL HISTORY: Dizziness, ANG, vision changes COMPARISON: None FINDINGS: There is moderate atrophy with proportional ventriculomegaly. There is periventricular white matter change likely related to small vessel disease. There is no evidence of hemorrhage. No masses are identified. No extra-axial fluid is seen. Hypoplastic mastoid air cells are noted. IMPRESSION: Atrophy and chronic changes without acute process. Reviewed, Interpreted and Dictated by Surjit Camarena MD Transcribed by Rissa Fletcher Authenticated and [facility]
--- NOTE | 2025-05-06 10:36 | ED_ITS ---
<Statement entered by El Pereira MD - 05/11/25 11:22> I was consulted by the MALOU, and we discussed the complexity of the problems being addressed. I approve the treatment and management plan for this patient's care in the emergency department, thus performing a substantive portion of the medical decision making. El Pereira MD Discharge Plan Disposition Patient Disposition: Home, Self-Care Condition: Good Prescriptions Prescriptions: New prednisone 50 mg tablet 50 mg PO DAILY 4 Days Qty: 4 0RF prednisone 10 mg tablet 10 mg PO DAILY Qty: 1 0RF Rx Instructions: Please take 50mg for four days, then 40mg for one day, then 30 for one day, 20mg for one day, and finally 10mg for one day prednisone 10 mg tablet 30 mg PO DAILY Qty: 1 0RF Rx Instructions: Please take 50mg for four days, then 40mg for one day, then 30 for one day, 20mg for one day, and finally 10mg for one day prednisone 20 mg tablet 20 mg PO DAILY 1 Days Qty: 1 0RF Rx Instructions: Please take 50mg for four days, then 40mg for one day, then 30 for one day, 20mg for one day, and finally 10mg for one day prednisone 20 mg tablet 40 mg PO DAILY Qty: 1 0RF Rx Instructions: Please take 50mg for four days, then 40mg for one day, then 30 for one day, 20mg for one day, and finally 10mg for one day No Action polyethylene glycol 3350 [Miralax] 17 gram/dose powder 17 g PO BID Qty: 510 5RF cephalexin 500 mg capsule 1,000 mg PO BID Qty: 40 0RF phenytoin sodium extended 100 mg capsule 100 mg PO TID Qty: 90 2RF Rx Instructions: take 1 in am, 2 in pm alendronate 70 mg tablet 70 mg PO WEEKLY Qty: 12 1RF levothyroxine 125 mcg capsule 125 mcg PO DAILY Qty: 30 2RF tamsulosin 0.4 mg capsule See Rx Instructions .ROUTE .COMPLEX Qty: 90 1RF Dose Instruction: TAKE 1 CAPSULE BY MOUTH AT BEDTIME NIGHTLY Rx Instructions: TAKE 1 CAPSULE BY MOUTH AT BEDTIME NIGHTLY sulfamethoxazole-trimethoprim [Bactrim DS] 800-160 mg tablet 1 tab PO BID Qty: 10 0RF levothyroxine [Synthroid] 112 mcg tablet 112 mcg PO DAILY Qty: 90 3RF Referrals Follow up/Referrals: Stevo Beard MD [Primary Care Provider, Medical] - See instructions Activity Restrictions/Add. Instructions Additional Instructions/Restrictions: No we discharged from ED to spend several days with family while he takes this round of steroids. Please take the steroids as directed. 50 mg for 4 days, 40 mg for 1 day, 30 mg for 1 day, 20 mg for 1 day, and finally 10 mg for the final day. Please follow-up with your primary care provider to discuss the complaints of dizziness, headache, and vision changes and to discuss today's emergency department visit. Return to the emergency department with any worsening of current complaints such as worsening dizziness with nausea and vomiting, increasing vision changes, sudden onset of terrible headache or headache to which she from sleep, or with any other emergent medical complaints or concerns. Clinical Impressions Clinical Impression: Dizziness, Abnormal gait, Change in vision Headache Qualifiers: Headache chronicity pattern: unspecified pattern Intractability: not intractable Instructions Patient Instructions: Vertigo, Dizziness, Nonvertigo, DI for Dizziness- Nonvertigo Print Language Print Language: Hebrew Discharge ED Provider: El Pereira General Adult HPI <PAM Myers - Last Filed: 05/11/25 11:04> General Chief complaint: Dizziness Stated complaint: dizziness, unsteady Time Seen by Provider: 05/06/25 10:11 Mode of Arrival: Wheelchair Source of Information: Patient Limitations: Hearing loss Description of Symptoms (Recalled from ER Triage Doc. by RN): Pt presents for evaluation of dizziness and having walking problems . PT states this started 2- 3 weeks ago. Pt states dizziness is worse at night. Pt states he developed a slight headache with visual changes 1 week ago History of Present Illness HPI narrative: Patient is a pleasant 69-year-old male who presents to the emergency department with complaints of dizziness and loss of balance when walking. Patient states that the dizziness and balance issues began 2 to 3 weeks ago and have gotten worse. Patient states that he does not normally have headaches but has had regular headaches for approximately 1 week. And patient states that he has had some double vision for the past 3 to 4 days. Patient denies any falls with head injury or any other trauma, denies any recent fever, and denies any other illness or diagnosis; denies chest pain, shortness of breath, abdominal pain. Onset (ago): week(s) Related Data Previous Rx's ?Medication ?Instructions ?Recorded phenytoin sodium extended 100 mg 100 mg PO TID #90 cap s 07/02/24 capsule alendronate 70 mg tablet 70 mg PO WEEKLY For osteopor osis 09/30/24 #12 tabs levothyroxine 125 mcg capsule 125 mcg PO DAILY #30 cap s 11/02/24 tamsulosin 0.4 mg capsule See Rx Instructions .Route 0 12/01/24 .COMPLEX #90 caps sulfamethoxazole 800 1 tab PO BID #10 tabs mg-trimethoprim 160 mg tablet (Bactrim DS) cephalexin 500 mg capsule 1,000 mg (2 x 500 mg) PO BID #40 03/14/25 caps polyethylene glycol 3350 17 17 g PO BID For constipati on #510 03/14/25 gram/dose oral powder (Miralax) grams levothyroxine 112 mcg tablet 112 mcg PO DAILY #90 tabs 03/18/25 (Synthroid) prednisone 10 mg tablet 10 mg PO DAILY #1 tab prednisone 10 mg tablet 30 mg (3 x 10 mg) PO DAILY # 1 tab 05/06/25 prednisone 20 mg tablet 20 mg PO DAILY 1 day #1 tab 05/06/25 prednisone 20 mg tablet 40 mg (2 x 20 mg) PO DAILY # 1 tab 05/06/25 prednisone 50 mg tablet 50 mg PO DAILY 4 days #4 tab s 05/06/25 Allergies Allergy/AdvReac Type Severity Reaction Status Date / Time No Known Allergies Allergy Verified 04/20/25 15:37 [facility] <PAM Myers - Last Filed: 05/11/25 11:04> [facility] Disclaimer: The information contained in this section may have been updated after the patient was seen, as this information can be updated by other users. Medical History History of subdural hematoma Deafness in left ear History of seizures Thyroid cancer Surgical History History of ankle surgery History of colon resection Family History Other Family history of cancer Family history of heart disease Social History Smoking Status: Never smoker alcohol intake: never substance use type: denies use current occupational status: retired Travel in the last 8 weeks?: None household members: none housing: house number of children: 0 current occupation: [employer] caffeine: Yes Have you lived/traveled outside [place] in past 30 days?: No Contact w/someone who lives/traveled outside US past 30 days?: No Exposure to someone with infectious disease in past 14 days?: No Do you have a fever (greater than 100.4 F or 38 C)?: No Have you tested positive for COVID-19?: No Exposed to someone with COVID-19 in past 14 days?: No Do you have a sore throat?: No Do you have a cough?: No Do you have any weakness?: No Do you have any diarrhea?: No Are you experiencing any unusual bleeding?: No Do you have any muscle aches/pain?: No Do you have any abdominal pain?: No Are you experiencing loss of taste or smell?: No Other Medical History Have you received the Flu Vaccine for this season: Yes Have you received the Pneumonia Vaccine: Yes <PAM yMers - Last Filed: 05/11/25 11:04> ROS Obtained: Yes Systems reviewed as appropriate & no additional complaints except as documented Physical Exam <PAM Myers - Last Filed: 05/11/25 11:04> General General appearance: alert and in no apparent distress Head Head exam: atraumatic and normocephalic Eye Eye exam: Present normal appearance, PERRL and EOMI Neck Neck exam: Present normal inspection and trachea midline Chest Chest inspection: Present normal inspection and symmetric chest wall rise; Absent tenderness Respiratory Respiratory exam: Present normal lung sounds bilaterally; Absent respiratory distress Cardiovascular Cardiovascular exam: Present regular rate and normal rhythm Abdominal Exam Abdominal exam: Present soft and normal bowel sounds; Absent distention, tenderness or guarding Extremities Exam Extremities exam: Present normal inspection; Absent tenderness Neurological Exam Neurological exam: Present alert and oriented X3; Absent normal gait Expanded Neurological Exam Patient oriented to: Present person, place and time Cerebellar function: Normal: finger to nose Cerebellar function: ataxic gait Psychiatric Psychiatric exam: Present normal affect and normal mood Skin Skin exam: Present warm and dry Medical Decision Making <PAM Myers - Last Filed: 05/11/25 11:04> Medical Records Screening: Per USPSTF and CDC recommendations, given the prevalence of disease in our region, it is our hospital?s policy to screen for HIV and viral Hepatitis for all patients aged 18 and over and those with ongoing risk factors. Hira Inquiry Pt receiving controlled substance: No Vital Signs: 05/06/25 10:13 05/06/25 10:30 05/06/25 11:30 Temperature 98.3 F Temperature Source Oral Pulse Rate 65 Pulse Rate [Right] 68 Respiratory Rate 18 14 15 Blood Pressure 132/85 133/74 Blood Pressure [Right Arm] 126/82 Blood Pressure Mean [Right Arm] 96 Blood Pressure Source [Right Arm] Automatic Cuff Blood Pressure Position [Right Arm] Sitting 02 Sat by Pulse Oximetry 97 98 98 Oxygen Delivery Method Room Air Room Air Room Air 05/06/25 12:00 05/06/25 12:31 05/06/25 13:00 Temperature Temperature Source Pulse Rate 60 66 64 Pulse Rate [Right] Respiratory Rate 14 11 L 11 L Blood Pressure 115/61 158/96 H 171/104 H Blood Pressure [Right Arm] Blood Pressure Mean [Right Arm] Blood Pressure Source [Right Arm] Blood Pressure Position [Right Arm] 02 Sat by Pulse Oximetry 96 97 98 Oxygen Delivery Method Room Air Room Air Room Air 05/06/25 13:20 05/06/25 15:19 05/06/25 16:00 Temperature Temperature Source Pulse Rate 65 87 68 Pulse Rate [Right] Respiratory Rate 16 Blood Pressure 135/82 127/91 H 139/84 Blood Pressure [Right Arm] Blood Pressure Mean [Right Arm] Blood Pressure Source [Right Arm] Blood Pressure Position [Right Arm] 02 Sat by Pulse Oximetry 97 98 96 Oxygen Delivery Method Room Air 05/06/25 16:30 05/06/25 17:22 Temperature 98.3 F Temperature Source Oral Pulse Rate 84 78 Pulse Rate [Right] Respiratory Rate 18 Blood Pressure 118/78 Blood Pressure [Right Arm] Blood Pressure Mean [Right Arm] Blood Pressure Source [Right Arm] Blood Pressure Position [Right Arm] 02 Sat by Pulse Oximetry 92 L Oxygen Delivery Method Room Air Room Air Lab Data Lab results reviewed: Yes I reviewed the patient's lab results. Lab Results 05/06/25 10:20: WBC 4.5 L, RBC 4.35 L, Hgb 14.1, Hct 41.0 L, MCV 94.3 H, MCH 32.4 H, MCHC 34.4, RDW 12.4, Plt Count 157, MPV 8.3, Neut % (Auto) 56.0, Lymph % (Auto) 28.1, [place] % (Auto) 11.3 H, Eos % (Auto) 2.9, Baso % (Auto) 1.5, Neut # (Auto) 2.5, Lymph # (Auto) 1.3, [place] # (Auto) 0.5, Eos # (Auto) 0.1, Baso # (Auto) 0.1, PT 11.1, INR 1.00, APTT 27.0, Sodium 135 L, Potassium 4.4, Chloride 99, Carbon Dioxide 29, Anion Gap 11.4, BUN 10, Creatinine 1.00, Estimated Creat Clear 61, Estimated GFR 74, Est GFR ( Amer) 90, Glucose 93, Calcium 8.5, Total Bilirubin 0.4, AST 30, ALT 17, Alkaline Phosphatase 116, Troponin I < 0.01, Total Protein 7.4, Albumin 4.1, Globulin 3.3 H, Albumin/Globulin Ratio 1.2, Triglycerides 59, Cholesterol 188, LDL Cholesterol Direct 103.69, VLDL Cholesterol 12, HDL Cholesterol 58, Cholesterol/HDL Ratio 3.2, Plasma/Serum Alcohol < 10 05/06/25 10:59: Urine Color Yellow, Urine Appearance Clear, Urine pH 6.5, Ur Specific [place] 1.010, Urine Protein Negative, Urine Glucose (UA) Negative, Urine Ketones Negative, Urine Blood Negative, Urine Nitrate Negative, Urine Bilirubin Negative, Urine Urobilinogen 0.2, Ur Leukocyte Esterase Negative, Urine RBC Occasional, Urine WBC None, Ur Squamous Epith Cells None, Urine Bacteria None, Urine Opiates Screen Negative, Urine Methadone Screen Negative, Ur Barbituates Screen Negative, Ur Phencyclidine Scrn Negative, Ur Amphetamines Screen Negative, U Benzodiazepines Scrn Negative, Urine Cocaine Screen Negative, U Marijuana (THC) Screen Negative 05/06/25 13:40: Troponin I < 0.01 05/06/25 10:20 05/06/25 10:20 Orders (Tests/Meds): ED MEDICATIONS Discontinued Medications Generic Name Dose Route Start Last Admin Trade Name Freq PRN Reason Stop Dose Admin Gadoteridol 12 ml 05/06/25 14:20 05/06/25 14:21 Gadoteridol Inj 20ml Syringe IV 05/06/25 14:21 12 ml ONCE ONE Administration Iopamidol 80 ml 05/06/25 11:04 05/06/25 11:04 Iopamidol-370 (76%);100ml Bottle IV 05/06/25 11:05 80 ml ONCE ONE Administration Prednisone 50 mg 05/06/25 16:21 05/06/25 16:35 Prednisone 20mg Tab PO 05/06/25 16:22 50 mg ONCE ONE Administration Sodium Chloride 10 ml 05/06/25 10:27 Sodium Chloride 0.9% 10ml Flush Syringe IV 06/05/25 10:26 NEEDED PRN Maintain IV Site Sodium Chloride 10 ml 05/06/25 11:04 05/06/25 11:04 Sodium Chloride 0.9% 10ml Syr (Rad Only) IV 05/06/25 11:05 10 ml ONCE ONE Administration Sodium Chloride 50 ml 05/06/25 11:04 05/06/25 11:04 0.9 % Sodium Chloride 50 Ml Vial IV 05/06/25 11:05 50 ml ONCE ONE Administration Sodium Chloride 10 ml 05/06/25 14:20 05/06/25 14:21 Sodium Chloride 0.9% 10ml Syr (Rad Only) IV 05/06/25 14:21 10 ml ONCE ONE Administration ORDERS Category Date Time Status CT angio head Stat Cat Scan 05/06/25 10:[address] angio neck Stat Cat Scan 05/06/25 10:[address] head/brain wo con Stat Cat Scan 05/06/25 10:27 Completed Acute abdomen XR minimum 2 views [XR abdomen min 2V] Exams 05/06/25 13:17 Completed Stat Activated Partial Thrombo Time Stat Lab 05/06/25 10:20 Completed Complete Blood Count Auto Diff Stat Lab 05/06/25 10:20 Completed Comprehensive Metabolic Panel Stat Lab 05/06/25 10:20 Completed Drug Screen,Urine Stat Lab 05/06/25 10:59 Completed Ethyl Alcohol Stat Lab 05/06/25 10:20 Completed Lipid Panel Stat Lab 05/06/25 10:20 Completed Prothrombin Time INR Stat Lab 05/06/25 10:20 Completed Troponin I Q3H Lab 05/06/25 13:40 Completed Troponin I Stat Lab 05/06/25 10:20 Completed Urinalysis and Microscopic Stat Lab 05/06/25 10:59 Completed Medical Decision Narrative: In summary patient is an 69-year-old male who presents to the emergency department for evaluation of dizziness with headaches and visual disturbance. Patient is hemodynamically stable upon arrival, afebrile. Patient has unremarkable physical exam with no focal deficiencies noted. Differential diagnosis includes cerebellar infarct, electrolyte disturbance, UTI. Initial workup will be conducted with imaging, labs, and EKG. Initial workup reviewed by me and is generally unremarkable with no significant electrolyte derangement, kidney injury, or transaminitis on CMP, no significant anemia or leukocytosis on CBC, and urine with no evidence of infection.. Upon repeat evaluation patient physical exam is unchanged. He is still resting comfortably in bed complaining of no symptoms while sitting or lying but continues to experience dizziness when ambulating and requires assistance. Given the results of labs, imaging, and PT evaluations, as patient is stable for discharge with family. Patient will remain with family for several days while taking medication to help resolve symptoms. Patient's social determinants of health review is concerning for the patient's lack of ability to provide adequate nutrition for himself. The patient and his son states that his son and his [id number] often cooks several meals for several days at a time and delivered to his home. However, the son states that they are not sure if he actually eats well or gets enough nutrition on a daily basis. <El Pereira MD - Last Filed: 05/06/25 11:44> Vital Signs: 05/06/25 10:13 05/06/25 10:30 05/06/25 11:30 Temperature 98.3 F Temperature Source Oral Pulse Rate 65 Pulse Rate [Right] 68 Respiratory Rate 18 14 15 Blood Pressure 132/85 133/74 Blood Pressure [Right Arm] 126/82 Blood Pressure Mean [Right Arm] 96 Blood Pressure Source [Right Arm] Automatic Cuff Blood Pressure Position [Right Arm] Sitting 02 Sat by Pulse Oximetry 97 98 98 Oxygen Delivery Method Room Air Room Air Room Air 05/06/25 12:00 05/06/25 12:31 05/06/25 13:00 Temperature Temperature Source Pulse Rate 60 66 64 Pulse Rate [Right] Respiratory Rate 14 11 L 11 L Blood Pressure 115/61 158/96 H 171/104 H Blood Pressure [Right Arm] Blood Pressure Mean [Right Arm] Blood Pressure Source [Right Arm] Blood Pressure Position [Right Arm] 02 Sat by Pulse Oximetry 96 97 98 Oxygen Delivery Method Room Air Room Air Room Air 05/06/25 13:20 05/06/25 15:19 05/06/25 16:00 Temperature Temperature Source Pulse Rate 65 87 68 Pulse Rate [Right] Respiratory Rate 16 Blood Pressure 135/82 127/91 H 139/84 Blood Pressure [Right Arm] Blood Pressure Mean [Right Arm] Blood Pressure Source [Right Arm] Blood Pressure Position [Right Arm] 02 Sat by Pulse Oximetry 97 98 96 Oxygen Delivery Method Room Air 05/06/25 16:30 05/06/25 17:22 Temperature 98.3 F Temperature Source Oral Pulse Rate 84 78 Pulse Rate [Right] Respiratory Rate 18 Blood Pressure 118/78 Blood Pressure [Right Arm] Blood Pressure Mean [Right Arm] Blood Pressure Source [Right Arm] Blood Pressure Position [Right Arm] 02 Sat by Pulse Oximetry 92 L Oxygen Delivery Method Room Air Room Air Lab Data Lab Results 05/06/25 10:20: WBC 4.5 L, RBC 4.35 L, Hgb 14.1, Hct 41.0 L, MCV 94.3 H, MCH 32.4 H, MCHC 34.4, RDW 12.4, Plt Count 157, MPV 8.3, Neut % (Auto) 56.0, Lymph % (Auto) 28.1, [place] % (Auto) 11.3 H, Eos % (Auto) 2.9, Baso % (Auto) 1.5, Neut # (Auto) 2.5, Lymph # (Auto) 1.3, [place] # (Auto) 0.5, Eos # (Auto) 0.1, Baso # (Auto) 0.1, PT 11.1, INR 1.00, APTT 27.0, Sodium 135 L, Potassium 4.4, Chloride 99, Carbon Dioxide 29, Anion Gap 11.4, BUN 10, Creatinine 1.00, Estimated Creat Clear 61, Estimated GFR 74, Est GFR ( Amer) 90, Glucose 93, Calcium 8.5, Total Bilirubin 0.4, AST 30, ALT 17, Alkaline Phosphatase 116, Troponin I < 0.01, Total Protein 7.4, Albumin 4.1, Globulin 3.3 H, Albumin/Globulin Ratio 1.2, Triglycerides 59, Cholesterol 188, LDL Cholesterol Direct 103.69, VLDL Cholesterol 12, HDL Cholesterol 58, Cholesterol/HDL Ratio 3.2, Plasma/Serum Alcohol < 10 05/06/25 10:59: Urine Color Yellow, Urine Appearance Clear, Urine pH 6.5, Ur Specific [place] 1.010, Urine Protein Negative, Urine Glucose (UA) Negative, Urine Ketones Negative, Urine Blood Negative, Urine Nitrate Negative, Urine Bilirubin Negative, Urine Urobilinogen 0.2, Ur Leukocyte Esterase Negative, Urine RBC Occasional, Urine WBC None, Ur Squamous Epith Cells None, Urine Bacteria None, Urine Opiates Screen Negative, Urine Methadone Screen Negative, Ur Barbituates Screen Negative, Ur Phencyclidine Scrn Negative, Ur Amphetamines Screen Negative, U Benzodiazepines Scrn Negative, Urine Cocaine Screen Negative, U Marijuana (THC) Screen Negative 05/06/25 13:40: Troponin I < 0.01 Orders (Tests/Meds): ED MEDICATIONS Discontinued Medications Generic Name Dose Route Start Last Admin Trade Name Val PRN Reason Stop Dose Admin Gadoteridol 12 ml 05/06/25 14:20 05/06/25 14:21 Gadoteridol Inj 20ml Syringe IV 05/06/25 14:21 12 ml ONCE ONE Administration Iopamidol 80 ml 05/06/25 11:04 05/06/25 11:04 Iopamidol-370 (76%);100ml Bottle IV 05/06/25 11:05 80 ml ONCE ONE Administration Prednisone 50 mg 05/06/25 16:21 05/06/25 16:35 Prednisone 20mg Tab PO 05/06/25 16:22 50 mg ONCE ONE Administration Sodium Chloride 10 ml 05/06/25 10:27 Sodium Chloride 0.9% 10ml Flush Syringe IV 06/05/25 10:26 NEEDED PRN Maintain IV Site Sodium Chloride 10 ml 05/06/25 11:04 05/06/25 11:04 Sodium Chloride 0.9% 10ml Syr (Rad Only) IV 05/06/25 11:05 10 ml ONCE ONE Administration Sodium Chloride 50 ml 05/06/25 11:04 05/06/25 11:04 0.9 % Sodium Chloride 50 Ml Vial IV 05/06/25 11:05 50 ml ONCE ONE Administration Sodium Chloride 10 ml 05/06/25 14:20 05/06/25 14:21 Sodium Chloride 0.9% 10ml Syr (Rad Only) IV 05/06/25 14:21 10 ml ONCE ONE Administration ORDERS Category Date Time Status CT angio head Stat Cat Scan 05/06/25 10:[address] angio neck Stat Cat Scan 05/06/25 10:[address] head/brain wo con Stat Cat Scan 05/06/25 10:27 Completed Acute abdomen XR minimum 2 views [XR abdomen min 2V] Exams 05/06/25 13:17 Completed Stat Activated Partial Thrombo Time Stat Lab 05/06/25 10:20 Completed Complete Blood Count Auto Diff Stat Lab 05/06/25 10:20 Completed Comprehensive Metabolic Panel Stat Lab 05/06/25 10:20 Completed Drug Screen,Urine Stat Lab 05/06/25 10:59 Completed Ethyl Alcohol Stat Lab 05/06/25 10:20 Completed Lipid Panel Stat Lab 05/06/25 10:20 Completed Prothrombin Time INR Stat Lab 05/06/25 10:20 Completed Troponin I Q3H Lab 05/06/25 13:40 Completed Troponin I Stat Lab 05/06/25 10:20 Completed Urinalysis and Microscopic Stat Lab 05/06/25 10:59 Completed ECG Data Tracing #1: I reviewed this ECG and interpreted as documented below: Normal sinus rhythm. No ST elevation or depression. QTc of 382 Critical Care <PAM Myers - Last Filed: 05/11/25 11:04> Critical Care Time Critical Care Time: No
--- NOTE | 2025-05-06 10:39 | PC.NURSE ---
FSBS 94, provided patient with warm blanket. Denies other needs at this time.
[2025-05-06 10:41] LABS: Hematocrit 41.0 % (42.0-52.0); Hemoglobin 14.1 g/dL (14.1-18.0); Immature Granulocytes % 0.2 %; Mean Corpuscular HGB Conc 34.4 g/dL (31.8-35.4); Mean Corpuscular Hemoglobin 32.4 pg (27.0-31.2); Mean Corpuscular Volume 94.3 fl (80-94); Nucleated Red Blood Cells % 0 %; Platelet Count 157 K/mm3 (142-424); Red Blood Count 4.35 M/mm3 (4.60-6.20); Red Cell Distribution Width-SD 43.2 fL; White Blood Count 4.5 K/mm3 (4.8-10.8)
[2025-05-06 10:42] LABS: Chloride 99 mmol/L (98-107)
[2025-05-06 10:43] LABS: Albumin Level 4.1 g/dl (3.5-5.0); Sodium 135 mmol/L (136-145)
[2025-05-06 10:44] LABS: Potassium 4.4 mmoL/L (3.5-5.1)
[2025-05-06 10:46] LABS: Alanine Aminotransferase 17 U/L (12-78); Albumin/Globulin Ratio 1.2 (1.1-1.8); Alkaline Phosphatase 116 U/L (38-126); Anion Gap 11.4 mEq/L (5-15); Aspartate Amino Transferase 30 U/L (17-59); Bilirubin,Total 0.4 mg/dl (0.2-1.3); Blood Urea Nitrogen 10 mg/dl (9-20); Carbon Dioxide 29 mmol/L (22.0-30.0); Cholesterol 188 mg/dl (140-200); Creatinine Clearance Estimated 61 mL/min (50-200); Creatinine,Serum 1.00 mg/dl (0.66-1.25); Estimated Glomerular Filt Rate 74 ml/min (>60); GFR (African American) 90 ML/MIN (>60); Globulin 3.3 g/dL (1.3-3.2); Total Protein,Serum 7.4 g/dl (6.3-8.2); Triglycerides 59 mg/dl (30-150)
[2025-05-06 10:47] LABS: Calcium 8.5 mg/dl (8.4-10.2); Glucose 93 mg/dl (74-100); HDL Cholesterol 58 mg/dl (40-60)
[2025-05-06 10:49] LABS: Activated Partial Thrombo Time 27.0 seconds (22.8-30.6); INR 1.00 (0.9-1.1); Prothrombin Time 11.1 seconds (10.1-12.5)
[2025-05-06 10:59] LABS: Troponin I < 0.01 ng/ml (0.00-0.034)
[2025-05-06 11:02] LABS: Microscopic, Urine URINE MICROSCOPIC (MICROSCOPIC)
[2025-05-06] MEDS: 0.9 % SODIUM CHLORIDE 50 ML VIAL IV (11:04)
[2025-05-06] MEDS: IOPAMIDOL-370 (76%);100ML BOTTLE 80 ML IV (11:04)
[2025-05-06] MEDS: SODIUM CHLORIDE 0.9% 10ML SYR (RAD ONLY) 10 ML IV ×2 (11:04→14:21)
--- NOTE | 2025-05-06 11:08 | PC.NURSE ---
1045 Pt attempts to ambulate to the bathroom to provide urine sample. Pt noted to have an abnormal gait and veering to the left. Pt provided urine sample, and then taken to CT in wheel chair.
[2025-05-06 11:10] LABS: Bilirubin,Urine Negative (Negative); Color,Urine YELLOW (Yellow); Glucose,Urine (UA) Negative (Negative); Ketones,Urine Negative (Negative); Leukocyte Esterase,Urine Negative (Negative); PH,Urine 6.5 (5.0-8.5); Protein,Urine Negative (Negative); Specific Gravity, Urine 1.010 (1.005-1.030); Urobilinogen,Urine 0.2 EU/dl (0.2)
--- NOTE | 2025-05-06 11:11 | PC.NURSE ---
Pt returns from CT
[2025-05-06 11:21] LABS: RBC,Urine Occasional #/hpf (0-3)
[2025-05-06 11:22] LABS: Amphetamine/Metha Screen,Urine Negative ng/ml (<1000); Benzodiazepines Screen,Urine Negative ng/ml (<200)
[2025-05-06 11:23] LABS: Barbiturates Screen,Urine Negative ng/ml (<200)
[2025-05-06 11:24] LABS: Methadone Screen,Urine Negative ng/ml (<300)
[2025-05-06 11:26] LABS: Opiate Screen,Urine Negative ng/ml (<300); Phencyclidine Screen,Urine Negative ng/ml (<25)
--- NOTE | 2025-05-06 13:11 | MR_ITS ---
FINAL REPORT CLINICAL HISTORY: Dizziness, abnormal gait COMPARISON: None FINDINGS: Multiplanar MR imaging of the brain was performed without and with contrast. There is no evidence of intracranial hemorrhage or mass. No abnormal extra-axial fluid collection is seen. There is mild abnormal signal throughout the deep white matter bilaterally. The ventricular size is within normal limits. There is no evidence of shift of the midline structures. The posterior fossa and brainstem have an unremarkable appearance. No area of abnormal restricted diffusion is identified. No abnormal contrast enhancement is seen. Normal major vessel vascular flow voids are noted. Mild mucosal thickening of the left maxillary sinus. No abnormal enhancement. IMPRESSION: No acute intracranial abnormality identified. Mild changes of chronic microvascular ischemia. Reviewed, Interpreted and Dictated by Surjit Camarena MD Transcribed by Rissa Fletcher Authenticated and [facility]
--- NOTE | 2025-05-06 13:17 | XR_ITS ---
FINAL REPORT CLINICAL HISTORY: Pre-MRI, has pain pump check placement prior to mri COMPARISON: None FINDINGS: Two views of the abdomen were obtained. The pain pump is oriented along the Z axis. There is a moderate lumbar scoliosis convex to the right. IMPRESSION: Pain pump oriented along the Z axis. Reviewed, Interpreted and Dictated by Surjit Camarena MD Transcribed by Rita Sauceda Authenticated and [facility]
--- NOTE | 2025-05-06 13:30 | PC.NURSE ---
Spoke to Karen with MRI. States the MRI machine will be going down for maintenance [id number]. States she is able to get his MRI completed however he will need a xray to confirm placement of his medtronic pain pump and will need pain management to verify that it is correctly working after the MRI. Spoke with Aye Aguayo in pain management who states they are available to check the functioning of the pain pump 45 minutes after the MRI is complete.
--- NOTE | 2025-05-06 13:40 | PC.NURSE ---
Pt to MRI
[2025-05-06 14:16] LABS: Troponin I < 0.01 ng/ml (0.00-0.034)
[2025-05-06] MEDS: GADOTERIDOL INJ 20ML SYRINGE 12 ML IV (14:21)
--- NOTE | 2025-05-06 14:25 | PC.NURSE ---
Pt returns from MRI
--- NOTE | 2025-05-06 14:26 | PC.NURSE ---
call made to pain management, she will come see pt around 1520
--- NOTE | 2025-05-06 14:27 | PC.NURSE ---
call made to rehab to let them know pt is back from MRI
--- NOTE | 2025-05-06 15:19 | PC.NURSE ---
Pt provided a sandwich and water with provider approval.
--- NOTE | 2025-05-06 15:43 | PC.NURSE ---
PT/OT at bedside.
--- NOTE | 2025-05-06 15:59 | HMH.PTEV ---
Physical Therapy Evaluation Rehab PT IP Evaluation Start: 05/06/25 13:11 Freq: ONCE Status: Active Protocol: Document 05/06/25 15:55 PHORJULIA (Rec: 05/06/25 15:58 PHORNE [id number]) Subjective/History History History 69-year-old male who presents to the emergency department with complaints of dizziness and loss of balance when walking. Patient states that the dizziness and balance issues began 2 to 3 weeks ago and have gotten worse. Patient states that he does not normally have headaches but has had regular headaches for approximately 1 week. And patient states that he has had some double vision for the past 3 to 4 days. Patient denies any falls with head injury or any other trauma, denies any recent fever, and denies any other illness or diagnosis; denies chest pain, shortness of breath, abdominal pain. Subjective Subjective He reports he lives alone, no SUMEET the home, and he is generally independent with all mobility at baseline without an AD. He reports he does have a cane at home if necessary. [facility] How much help from another person do you currently need... Turning from your None back to your side while in a flat bed without using bedrails? Moving from lying on None back to sitting on the side of a flat bed without using bedrails? Moving to and from a None bed to a chair ( including a wheelchair)? Standing up from a None chair using your arms? (e.g., wheelchair, bedside chair) Walking in hospital A little room? Climbing 3-5 steps A little with a railing? Mobility Score 22 Mobility Level [facility] Mobility 7 Walk 25 feet or more Mobility Calculator Rehab PT IP Eval Objective Appearance Patient Behavior Appropriate Patient Orientation Person,Place,Time Difficulty following none instructions Speech Pattern Clear Ambulation Patient Able to Yes Ambulate Ambulation Observation IP General Gait Ataxic Gait Pattern Observation Ambulation Distance 50 (feet) Ambulation Assistive None Device Ambulation Ability Contact Guard/Hand Hold Balance Ability to Arise Able, uses arms to help Sitting Balance Steady, safe Standing Balance Steady, wide stance Dynamic Sitting Good Balance Ability Dynamic Standing Poor Balance Ability Transfers Bed Transfer Ability Independent Chair Transfer Independent Ability Sit to Stand Bed Independent Transfer Ability Sit to Stand Chair Independent Transfer Ability ROM All Extremities PT ROM Status WFL MMT All Extremities PT MMT WFL Rehab PT IP prob,goals,plan Problems Date of Evaluation: 05/06/25 Discharge Plan PT Discharge Plan Pt is currently appropriate to return home, but would be best to stay with family for short term if possible due to veering to the L side during ambulation. If balance disruption continues, recommend outpatient therapy services. Eval Complexity Eval Charge Codes 70586 - Moderate Complexity PHYSICIAN CERTIFICATION: I certify the specified therapy services for Ernesto Lloyd are required, authorized, and reviewed every 30 days.
--- NOTE | 2025-05-06 16:04 | HMH.OTEV ---
OT Evaluation Rehab OT IP Evaluation Start: 05/06/25 13:20 Freq: ONCE Status: Active Protocol: Document 05/06/25 16:00 CELESTE (Rec: 05/06/25 16:03 [facility] [id number]) Rehab OT IP Assessment Subjective History 69-year-old male who presents to the emergency department with complaints of dizziness and loss of balance when walking. Patient states that the dizziness and balance issues began 2 to 3 weeks ago and have gotten worse. Patient states that he does not normally have headaches but has had regular headaches for approximately 1 week. And patient states that he has had some double vision for the past 3 to 4 days. Patient denies any falls with head injury or any other trauma, denies any recent fever, and denies any other illness or diagnosis; denies chest pain, shortness of breath, abdominal pain. Subjective He reports he lives alone, no SUMEET the home, and he is generally independent with all functional transfers at baseline without an AD. He reports he does have a cane at home if necessary. Pt claims he is independent with all ADLs and IADLs. Family does assist with doctors appointments and groceries as needed because he no longer drives. Objective Patient Orientation Person,Place,Birthday Right Upper WFL Extremity Gross ROM Left Upper Extremity WFL Gross ROM Bed Mobility bed mobility-scooting,bed mobility - supine/sit Assist Level Supervision/Stand by Transfer Training Sit/Stand Transfer Assist Level Contact Guard/Hand Hold Lower Body Dressing Independent Ability Rehab OT IP prob,goals,plan Problems Date of Evaluation: 05/06/25 Rehab Potential Rehab Potential Innapropriate for Skilled Therapy Discharge Plan OT Discharge Plan Pt is currently most appropriate to return home, but would be best to stay with family for short term if possible due to veering to the L side during functional transfers. Pt would benefit most from outpatient PT evaluation for continued assistance with gait. Eval Complexity Eval Charge Codes 10336 - Moderate Complexity PHYSICIAN CERTIFICATION: I certify the specified therapy services for Ernesto Lloyd are required, authorized, and reviewed every 30 days.
== END 2025-05-06 17:36 | disposition home or self-care (01) ==
PROVIDERS: Physician Assistant; Emergency Provider Student in an Organized Health Care Education/Training Program; PCP Internal Medicine
DX: R51.9 Headache, unspecified (principal); R42 Dizziness and giddiness; R26.9 Unspecified abnormalities of gait and mobility; H53.8 Other visual disturbances
CPT/HCPCS: 70450; 70496; 70498; 70553; 74019; 80053; 80061; 80307; 80320; 81001; 84484; 85025; 85610; 85730; 93005; 99285; A9576; Q9967

== ENCOUNTER 2025-05-17 12:20 | Outpatient (CLI) | payer MEDICARE, SELFPAY ==
--- OUTSIDE RECORDS SUMMARY | 2025-05-17 12:25 | XMS_ITS | Clinical Summary ---
Author Organization [facility] Address [address] [place] [address] Care Team Providers Care Corporate Training Manager Name Role Phone Stevo Beard MD Primary Care Provider [phone] Family History Medical History Relation Name Comments [...] of Treatment Not on file Care Teams Corporate Training Manager Relationship Specialty Start Date End Date Stevo Beard MD [address] [facility] [address] [place] [address] PCP - General 10/27/20
[2025-05-17 12:38] LABS: Phenytoin (Dilantin) 32.4 ug/ml (10-20)
== END 2025-05-17 23:59 | disposition home or self-care (01) ==
LOC: LAB.DROPOF 12:21
PROVIDERS: PCP Internal Medicine; Visit Provider Internal Medicine
DX: G40.909 Epilepsy, unspecified, not intractable, without status epilepticus (principal); R42 Dizziness and giddiness
CPT/HCPCS: 80185

== ENCOUNTER 2025-05-20 13:35 | Outpatient (CLI) | payer MEDICARE, SELFPAY ==
--- OUTSIDE RECORDS SUMMARY | 2025-05-20 13:38 | XMS_ITS | Clinical Summary ---
Author Organization [facility] Address [address] [place] [address] Care Team Providers Care Solo Musician Name Role Phone Stevo Beard MD Primary Care Provider [phone] Family History Medical History Relation Name Comments [...] of Treatment Not on file Care Teams Solo Musician Relationship Specialty Start Date End Date Stevo Beard MD [facility] [address] [place] [address] PCP - General 10/27/20
--- NOTE | 2025-05-20 13:45 | CA_ITS ---
APPROVED REPORT EXAM: Comprehensive 2D, Doppler, and color-flow Echocardiogram Spring Maker: Marquita Starkey CRT Ht: 5 ft 8 in Wt: 145lbs BSA: 1.78 BP: 106/78 mmHg Indications: Shortness of Breath 2D Dimensions LA Volume 24.00 mL LA Volume Index 13.10 mL/m2 (M/F) 16-34 M-Mode Dimensions RVDd 2.44 cm (0.9-2.6) LA Diam 3.16 cm (1.9-4.0) LVDd 4.52 cm (3.5-5.7) LVDs 3.11 cm (3.5-5.7) IVSd 1.19 cm (0.6-1.1) PWd 0.69 cm (0.6-1.1) EF (Teich) 59.10% FS 31.20% EDV (Teich) 93.40 mL TAPSE 1.94 (<1.7) ESV (Teich) 38.20 mL LV Diastology E Decel Time 200 (160-240 msec) E/A Ratio 0.84 MED A' 10.40 cm/s LAT A' 12.10 cm/s Aortic Valve AO Peak GR. 3.70 mmHg Mitral Valve MV A Velocity 68.0 (40-130 cm/s) E/A Ratio 0.84 Tricuspid Valve TR P. Velocity 230.00 cm/s RAP Estimate 10.00 mmHg RVSP 31.20 mmHg Left Ventricle The left ventricle is normal size. Left ventricular systolic function is normal. The left ventricular ejection fraction is within the normal range. There is increased left ventricular wall thickness. There is normal LV segmental wall motion. The left ventricular diastolic function is normal. LVEF is 55% Right Ventricle The right ventricle is mildly dilated. The right ventricular systolic function is normal. Atria Left atrium is mildly dilated. Right atrium is mildly dilated. There is no color Doppler evidence of interatrial shunt. Aortic Valve The aortic valve is mildly thickened. There is no hemodynamically significant aortic valvular stenosis. No aortic regurgitation is present. Mitral Valve The mitral valve is normal in structure. No evidence of mitral valve stenosis. Trace mitral regurgitation is present. Tricuspid Valve The tricuspid valve leaflets are thin and pliable. Mild tricuspid regurgitation. RVSP is 20-25 mmHg. Pulmonic Valve The pulmonary valve is grossly normal in structure. Trace pulmonic valve regurgitation is present. Great Vessels The aortic root is normal in size. IVC is normal in size and collapses >50% with inspiration. Pericardium There is no pericardial effusion. Other Information Study Quality: Fair Conclusion Normal biventricular systolic function. Mild RV dilation. Mild biatrial dilation. Mild TR. Electronically signed by : Cecilia Rm MD 05/28/2025 16:27:12
== END 2025-05-20 23:59 | disposition home or self-care (01) ==
LOC: RT 13:35
PROVIDERS: PCP Internal Medicine; Visit Provider Internal Medicine
DX: I07.1 Rheumatic tricuspid insufficiency (principal)
CPT/HCPCS: 93306

== ENCOUNTER 2025-05-25 09:54 | Outpatient (CLI) | payer MEDICARE, SELFPAY ==
[2025-05-25 13:05] LABS: Phenytoin (Dilantin) 19.9 ug/ml (10-20)
== END 2025-05-25 23:59 | disposition home or self-care (01) ==
LOC: LAB.DROPOF 05-27 12:00
PROVIDERS: PCP Internal Medicine; Visit Provider Internal Medicine
DX: T42.0X1A Poisoning by hydantoin derivatives, accidental (unintentional), initial encounter (principal)
CPT/HCPCS: 80185

== ENCOUNTER 2025-06-15 14:00 | Outpatient (RCR) | payer MEDICARE, SELFPAY ==
--- NOTE | 2025-05-19 10:46 | HMH.PTOPEV ---
PT Evaluation Rehab PT Outpatient Evaluation Start: 05/19/25 10:06 Freq: Status: Active Protocol: Document 05/19/25 10:07 PAMELA (Rec: 05/19/25 10:45 PAMELA [id number]) E-signed By Sherif Turk, PT Outpatient Therapy Subjective History Subjective History The patient is a 69-year-old male with past medical history of epilepsy, subdural hematoma, hypothyroidism, lymphoma of thyroid, small bowel obstruction, ORIF of fracture of right ankle, burst fracture of T12 vertebrae, chronic low back pain, BPH, osteoporosis, obstipation, and status post pain pump for treatment of chronic low back pain who presents to [facility] outpatient PT with complaints of LE weakness, difficulty walking, balance deficits. Pt's sister helps to provide pt's subjective history. Pt reports that he lives in a house by himself. Reports that he has 1 SUMEET. Pt reports that he has a cane but he reports that he does not use it. Pt also reports that he has had 3 falls at home in the past 6 months. His most recent fall was this past Friday. Pt reports that he sustained no injuries and that he was able to get himself up off the floor. Pt reports that he gets out of breath very quickly when he walks, he is getting an echocardiogram tomorrow. Pt recently got an intrathecal pain pump that has helped his back pain tremendously. Pt's biggest complaint is balance and gait. Pt's sister reports that he has a goal of flying to [place] in may and she wants to be sure that he is safe and capable of getting on/off of the airplane. New diagnosis of No cancer in past 12 months? Chief Complaint Pain Symptoms Aggravated Standing,Walking By Prior Functional None Limitations Current Functional Standing,Squatting,Walking,Stairs,Balance Limitations Level of pain today 0 (0-10) Pain scale - at its 0 best (0-10) Pain scale - at its 0 worst (0-10) PT Balance Eval Posture and Alignment Static Standing Forward Head Posture: Gait Assessment Gait Deviations During ambulation, patient demonstrates a left rotation Noted: of his hip and torso. Pt also demonstrates inconsistent step length and inconsistent foot clearance. Dynamic Balance Tandem Walk: Unable Timed Up and Go (TUG 17 ) in seconds: Five Times Sit-to- 20 Stand (5xSTS) in seconds: Four Stages Balance Test Feet Together (sec): 30 Semi-tandem (sec): 0 Tandem (sec): 0 Single Leg (sec): 0 Strenth (LE)-MMT Hip Flexors Right 3+ Hip Flexors Left 3+ Knee Extensors Right 3 Knee Extensors Left 3 Ankle Dorsiflexors 4 Right Ankle Dorsiflexors 4 Left Ankle Plantarflexors 4 Right Ankle Plantarflexors 4 Left Dynamic Gait Index Test Protocol Gait Level Surface Moderate Impairement Query Text: Instructions: Walk at your normal speed from here to the next majo (20'). Grading: Majo the lowest category that applies. Change in Gait Speed Moderate Impairment Query Text: Instructions: Begin walking at your normal pace (for 5') , when I tell you go , walk as fast as you can (for 5'). When I tell you slow , walk as slowly as you can ( for 5'). Grading: Majo the lowest category that applies. Gait with Horizontal Moderate Impairment Head Turns Query Text: Instructions: Begin walking at your normal pace. When I tell you to look right , keep walking straight, but turn you head to the right. Keep looking to the right unit I tell you look left , then keep walking straight and turn your head to the left. Keep your head to the left until I tell you look straight , then keep walking straight, but return you head to the center. Grading: Majo the lowest category that applies. Gait with Vertical Moderate Impairment Head Turns Query Text: Instructions: Begin walking at your normal pace. When I tell you to look up , keep walking staight, but tip your head up. Keep looking up until I tell you to look down , then keep walking straight and tip your head down. Keep your head down until I tell you look straight , then keep walking straight, but return your head to the center. Grading: Majo the lowest category that applies. Gait and Pivot Turn Moderate Impairment Query Text: Instructions: Begin walking at your normal pace. When I tell you turn and stop , turn as quickly as you can to face the opposite direction and stop. Grading: Majo the lowest category that applies. Step Over Obstacle Moderate Impairment Query Text: Instructions: Begin walking at your normal speed. When you come to the shoebox, step over it, not around it and keep walking. Grading: Majo the lowest category that applies. Step Around Mild Impairment Obstacles Query Text: Instructions: Begin walking at normal speed. When you come to the first cone (about 6' away) , walk around the right side of it. When you come to the second cone (6' past first cone), walk around it to the left. Grading: Majo the lowest category that applies. Steps Moderate Impairment Query Text: Instructions: Walk up these stairs as you would at home. At the top, turn around and walk down . Grading: Majo the lowest category that applies. Scoring Dynamic Gait Index 9 Score Oswestry Index Section 1 Pain Intensity The pain is mild and does not vary much Section 2 Personal Care ( change my way of washing or dressing in order to avoid Washing,Dresing) pain Section 3 Lifting I can only lift very light weights at most Section 4 Walking I cannot walk more than 1/4 mile without increasing pain Section 5 Sitting I can sit in my favorite chair for as long as I like Section 6 Standing I cannot stand more than 10 minutes without increasing pain Section 7 Sleeping I get no pain in bed Section 8 Social Life Pain has no significant effect on my social life apart from limiting Section 9 Traveling I get some pain when traveling, but none of my usual forms of travel m Section 10 Changing Degreee of My pain is getting better Pain Score and Risk Level Oswestry Score 18 Oswestry Risk Level Moderate Disability Outpatient Therapy Assessment Impairments Problems/ Impaired Strength,Impaired Gait Pattern,Impaired Impairmments Walking,Impaired Lifting,Impaired Stair Climbing, Impaired Balance,Subjective C/O Pain,Impaired Self Care /Self Management Prognosis Rehab Potential Fair Comment w HEP compliance Clinical Impression Consistent with Yes Diagnosis Consistent with Impaired Balance Additional details: Pt presents with balance impairment due to unknown etiology. PT Patient Goals PT Patient Goals PT Short Term In 4 weeks: Patient Goals 1. Pt will improve bilateral hip and knee strength to at least 4/5 grossly upon MMT to better facilitate functional movement patterns, such as standing from a chair. 2. Pt will improve 5xSTS test to 17s to decrease fall risk, demonstrate improved endurance and to better align with age appropriate norms. 3. Pt will improve TUG time to 16s to demonstrate improved functional mobility and decreased fall risk. 4. Pt will improve DGI score to 10 to demonstrate a decreased fall risk and improved in-home and community mobility. 5. Pt will be able to stand for 15 minutes in order to prepare a small meal in his kitchen without requiring a rest break. 6. Pt will report HEP adherence by completing her prescribed HEP 4-5x/week. PT Ordnance Engineering Technician Patient In 8 weeks: Goals 1. Pt will improve bilateral hip and knee strength to at least 4+/5 grossly upon MMT to better facilitate functional movement patterns, such as standing from a chair. 2. Pt will improve 5xSTS score to 15s to decrease fall risk, demonstrate improved endurance and to better align with age appropriate norms. 3. Pt will improve TUG time to 14s to demonstrate improved functional mobility and decreased fall risk. 4. Pt will improve DGI score to 13 to demonstrate a decreased fall risk and improved in-home and community mobility. 5. Pt will be able to stand for 30 minutes in order to prepare a larger meal in his kitchen without requiring a rest break. 6. Pt will be able to navigate a flight of stairs with a hand-rail, in order to demonstrate improved community mobility. Outpatient Therapy Plan of Care Treatment Plan May Include Therapeutic Exercise Yes Including Home Exercise Program Manual Therapy Yes Techniques Neuromuscular Re- Yes education Therapeutic Yes Activities to Return to Previous Functional/Work Level Gait Training Yes Eval/Re-Eval Yes Frequency Times per week 2 Duration Number of Weeks 8 Addendums This patient is a No candidate for social or vocational rehab ? Patient/Guardian Yes verbally acknowledges understanding of treatment program and consents to further treatment? Patient/Guardian Yes verbally acknowledges understanding of diagnosis, prognosis and goals for treatment? Eval Complexity PT Charges 99717 - High Complexity Shoulder/Elbow Eval Shoulder Objective Measurements Elbow Objective Measurements PHYSICIAN CERTIFICATION: I certify the specified therapy services for Ernesto Lloyd are required, authorized, and reviewed every 30 days.
== END 2025-06-15 23:59 | disposition home or self-care (01) ==
LOC: PT 14:00
PROVIDERS: PCP Internal Medicine; Visit Provider Nurse Practitioner Family
DX: M54.50 Low back pain, unspecified (principal); G89.29 Other chronic pain; R29.898 Other symptoms and signs involving the musculoskeletal system
CPT/HCPCS: 97110; 97112; 97116; 97163; 97530